=== PATIENT | female | born 1960 | race Caucasian/White ===

== ENCOUNTER 2019-02-13 08:50 | Emergency (ER) | payer MEDICARE, OTHER ==
[~2019-02-13] VITALS: Ht 175.3 cm; Wt 83.5 kg
[~2019-02-13 08:50] MED LIST: ACYCLOVIR400 MG PO; AZITHROMYCIN500 MG PO; BUSPIRONE HCL15 MG PO; CARBAMAZEPINE200 M2 PO; CARBAMAZEPINE200 MG PO; CETIRIZINE HCL10 MG PO; CIPROFLOXACIN500 MG PO; CLONAZEPAM0.5 MG PO; CLONAZEPAM1 MG; CLONAZEPAM1 MG PO; COMBIVENT RESPIM4 GM INH; GABAPENTIN300 MG PO; GEODON80 MG PO; HYDROCODON-ACE1 EA10 PO; HYDROCODON-ACE1 EA11 PO; IBUPROFEN800 MG PO; LAMICTAL150 MG PO; LEVOCETIRIZINE D5 MG PO; NEXIUM40 MG PO; NORCO 5-325 TA1 EACH PO; OXYCODONE IR PO; PERCOCET 10-321 EACH PO; PROAIR HFA8.5 GM INH; RISPERDAL1 MG/1 ML PO; SIMVASTATIN40 MG PO; TRAMADOL HCL50 MG PO; TRAZODONE HCL100 MG PO; VIIBRYD40 MG PO; ZOFRAN ODT4 MG PO
--- OUTSIDE RECORDS SUMMARY | 2019-02-13 08:54 | XMS ---
PreManage Notification: LYRIC SANTOS Security Spanish Instructor Events No recent Security Events currently on file CRITERIA MET - MAXP CARE PROVIDERS Mitzy Deal Liquid Floor And Wall Applier/Television Writer 08/31/2018-Current PHONE: [phone] Mitzy Deal Primary Care 08/31/2018-Current PHONE: [phone] Marbella Childress Primary Care Current PHONE: Unknown orarvind Case or Senior Research Project Manager Current PHONE: Unknown Gia has no Care Guidelines for this patient. Miguel Angel VISIT COUNT (12 MO.) 1 VENKATA Alejandre TOTAL 1 NOTE: Visits indicate total known visits. ED/UCC VISIT TRACKING (12 MO.) 02/13/2019 08:51 [place] [place] TYPE: Emergency COMPLAINT: - BACK PAIN/NO INJURY INPATIENT VISIT TRACKING (12 MO.) No inpatient visits to display in this time frame [id number]
[2019-02-13] MEDS ORDERED: LATUDA120 MG PO (09:03)
[2019-02-13] MEDS ORDERED: MILLIPRED5 MG PO (10:07)
== END 2019-02-13 10:20 | disposition home or self-care (01) ==
LOC: ED 08:50
DX: M54.5 Low back pain (principal); F41.9 Anxiety disorder, unspecified; F31.9 Bipolar disorder, unspecified; Z95.0 Presence of cardiac pacemaker; Z88.0 Allergy status to penicillin; Z88.2 Allergy status to sulfonamides; Z88.8 Allergy status to other drugs, medicaments and biological substances; Z91.018 Allergy to other foods; Z91.040 Latex allergy status; Z79.899 Other long term (current) drug therapy
CPT/HCPCS: 96372; 99283-25; J1630; J1885; J2930

== ENCOUNTER 2019-07-27 10:16 | Observation (INO) | payer MEDICARE, OTHER ==
[~2019-07-27] VITALS: Ht 175.3 cm; Wt 81.6 kg
--- OUTSIDE RECORDS SUMMARY | ~2019-07-27 | XMS | Encounter Summary ---
Demographics + + + | Address | [address] | | | [place] [address] | + + + | Home Phone | | + + + | Preferred Language | Unknown | + + + | Marital Status | | + + + | Anabaptist Affiliation | Unknown | + + + | Race | Unknown | + + + | Ethnic Group | Unknown | + + + Author + + + | Author | [facility] | | | and [place] | + + + | Organization | [facility] | | | and [place] | + + + | Address | Unknown | + + + | Phone | Unavailable | + + + Support + + +---------+ + | Name | Relationship | Address | Phone | + + +---------+ + | Mando Najeras | ECON | Unknown | | + + +---------+ + | Rob Kruse | ECON | Unknown | | + + +---------+ + Care Team Providers + +------+ + | Care Rubber Roller Grinder Name | Role | Phone | + +------+ + PCP | Unavailable | + +------+ + Encounter Details +--------+ + + + + | Date | Type | Department | Care Team | Description | +--------+ + + + + | 05/09/ | Hospital | [facility] | Conversion | Pain | | 2014 | Encounter | [address] | Transaction, | | | | | [address] | Provider Unknown | | | | | [place], [place] | [phone] | | | | | [address] | | | | | | [phone] | | | +--------+ + + + + Social History + +-------+ +--------+------+ | Tobacco Use | Types | Packs/Day | Years | Date | | | | | Used | | + +-------+ +--------+------+ | Never Assessed | | | | | + +-------+ +--------+------+ + + + | Sex Assigned at | Date Recorded | | | | + + + | Not on file | | + + + + + + + | Job Start Date | Occupation | Industry | + + + + | Not on file | Not on file | Not on file | + + + + + + + + | Travel History | Travel Start | Travel End | + + + + + + | No recent travel history available. | + + documented as of this encounter Plan of Treatment +--------+---------+ + + + | Date | Type | Specialty | Care Team | Description | +--------+---------+ + + + | 01/03/ | Office | Cardiology | Tiago Pleitez, | | | 2019 | Visit | | MD Shaji FORRESTER | | | | | | [place] | | | | | | [address] | | | | | | | | +--------+---------+ + + + documented as of this encounter Procedures + +--------+ + + + | Procedure Name | Priori | Date/Time | Associated Diagnosis | Comments | | | ty | | | | + +--------+ + + + | CT LUMBAR SPINE WO | Routin | 03/08/2014 | | Results for this | | CONTRAST | e | 11:57 PM | | procedure are in the | | | | PDT | | results section. | + +--------+ + + + documented in this encounter Results CT Lumbar Spine wo Contrast (03/08/2014 11:57 PM PDT) + + | Specimen | + + | | + + + + + | Narrative | Performed At | + + + | This is a non-reportable procedure without a radiologist report and | | | is used for image storage only | | + + + + + | Procedure Note | + + | Alen Ramesh Fermín - 04/15/2019 4:54 PM PDT This is a non-reportable procedure | | without a radiologist report and isused for image storage only | + + documented in this encounter Visit Diagnoses + + | Diagnosis | + + | Pain Generalized pain | + + documented in this encounter"
--- OUTSIDE RECORDS SUMMARY | ~2019-07-27 | XMS | Encounter Summary ---
Demographics + + + | Address | [address] | | | [place] [address] | + + + | Home Phone | | + + + | Preferred Language | Unknown | + + + | Marital Status | | + + + | Synagogue Affiliation | Unknown | + + + | Race | Unknown | + + + | Ethnic Group | Unknown | + + + Author + + + | Author | [facility] | | | and [place] | + + + | Organization | [facility] | | | and [place] | + + + | Address | Unknown | + + + | Phone | Unavailable | + + + Support + + +---------+ + | Name | Relationship | Address | Phone | + + +---------+ + | Mando Kruse | ECON | Unknown | | + + +---------+ + | Rob Kruse | ECON | Unknown | | + + +---------+ + Care Team Providers + +------+ + | Care Yacht Builder Name | Role | Phone | + +------+ + | Jose Woods DO | PCP | | + +------+ + Reason for Visit + + + | Reason | Comments | + + + | Device Check | Henley pacemaker in office device check | | (In-office) | | + + + Encounter Details +--------+ + + + + | Date | Type | Department | Care Team | Description | +--------+ + + + + | 06/14/ | Procedure | [facility] | Tiago Pleitez, | Cardiac pacemaker in | | 2019 | visit | CARDIOLOGY [place] | MD Shaji FORRESTER | situ (Primary Dx) | | | | [address] | [place], [place] | | | | | [facility] | [address] | | | | | [place] | | | | | | [address] | | | | | | [phone] | | | +--------+ + + + + Social History + +-------+ +--------+------+ | Tobacco Use | Types | Packs/Day | Years | Date | | | | | Used | | + +-------+ +--------+------+ | Former Smoker | | | | | + +-------+ [...] [place] | | | | | | [facility] | | | | | | [address] | | | | | | | | +--------+---------+ + + + documented as of this encounter Procedures + +--------+ + + + | Procedure Name | Priori | Date/Time | Associated Diagnosis | Comments | | | ty | | | | + +--------+ + + + | DEVICE INTERROGATION | Routin | 06/14/2019 | Cardiac pacemaker | Results for this | | | e | 1:15 PM | in situ | procedure are in the | | | | PDT | | results section. | + +--------+ + + + documented in this encounter Results Device Interrogation (06/14/2019 1:15 PM PDT) + + + | Narrative | Performed At | + + + | [facility] | [facility] | | [place] 06/21/2019 13:32PACEMAKER INTERROGATION REPORT Name: | | | Harriet Lyon PCP: Jose Woods DO : 1960MRN: [id number] | | | Primary cardiology provider: Tiago [place] Primary | | | electrophysiology provider: None Mode of interrogation: Seen in | | | cardiac device clinic Device: [employer]ent [employer] Battery Longevity: 4 | | | years RA Pacin% RV Pacin% Pacemaker dependent: No | | | Interrogation resultsPlease see the full interrogation report attached | | | Lead function: Lead impedance and threshold value trends have | | | been reviewed and are acceptable based on most recent evaluation. RA | | | Threshold: 0.5V @ 0.4ms RV Threshold: 0.6V @ 0.4ms RA Amplitude: 3.0 | | | mVRV Amplitude: 12.0mV Atrial events: Atrial high rate episodes: 6 | | | MEDICAL PHYSICS RESEARCHER. Total time 1.1 min Confirmed episodes of atrial flutter or atrial | | | fibrillation: No EGMs are available Percentage of time in atrial | | | flutter or atrial fibrillation: 0% Known history of atrial flutter or | | | atrial fibrillation: NoCurrent antithrombotic therapy including: N/A | | | Ventricular events: Ventricular high rate episodes: None. | | | Additional comments: None. CHF: Congestive heart failure parameters | | | and trends have been reviewed and n/a Programming changes: Temporary | | | programming changes were made for testing and restored to original | | | values. No permanent changes were made. Follow up: The next | | | scheduled interrogation will be in 6 months in the cardiac device | | | clinic. Impression:1. Normal pacemaker function.2. No significant | | | arrhythmias noted. Testing performed by: Adrian Retana | | |Lead function: Lead impedance and threshold value trends have | | |been reviewed and are acceptable based on most recent evaluation. | | | | | |RA Threshold: 0.5V @ 0.4ms | | |RV Threshold: 0.6V @ 0.4ms | | | | | |RA Amplitude: 3.0 mV | | |RV Amplitude: 12.0mV | | | | | | | | |Atrial events: Atrial high rate episodes: 6 MEDICAL PHYSICS RESEARCHER. Total time 1.1 | | |min | | | | | |Confirmed episodes of atrial flutter or atrial fibrillation: No | | |EGMs are available | | | | | |Percentage of time in atrial flutter or atrial fibrillation: 0% | | | | | |Known history of atrial flutter or atrial fibrillation: No | | |Current antithrombotic therapy including: N/A | | | | | |Ventricular events: Ventricular high rate episodes: None. | | | | | |Additional comments: None. | | | | | |CHF: Congestive heart failure parameters and trends have been | | |reviewed and n/a | | | | | |Programming changes: Temporary programming changes were made for | | |testing and restored to original values. No permanent changes | | |were made. | | | | | |Follow up: The next scheduled interrogation will be in 6 months | | |in the cardiac device clinic. | | | | | |Impression: | | |1. Normal pacemaker function. | | |2. No significant arrhythmias noted. | | | | | |Testing performed by: Adrian Retana | | | | | | | | + + + + +---------+ + + | Performing | Address | City/State[facility] | Phone Number | | Organization | | | | + +---------+ + + | [facility] | | | | + +---------+ + + documented in this encounter Visit Diagnoses + + | Diagnosis | + + | Cardiac pacemaker in situ - Primary | + + documented in this encounter"
--- OUTSIDE RECORDS SUMMARY | ~2019-07-27 | XMS | Encounter Summary ---
Demographics + + + | Address | [address] | | | [place] [address] | + + + | Home Phone | | + + + | Preferred Language | Unknown | + + + | Marital Status | Single | + + + | Pentecostal Affiliation | NOD | + + + | Race | White | + + + | Ethnic Group | Not or | + + + Author + + + | Author | [facility] | + + + | Organization | [facility] | + + + | Address | Unknown | + + + | Phone | Unavailable | + + + Support + + +---------+ + | Name | Relationship | Address | Phone | + + +---------+ + | Mando Kruse | ECON | Unknown | | + + +---------+ + | Christopher Aixa | ECON | Unknown | | + + +---------+ + Care Team Providers + +------+ + | Care Catalyst Concentration Operator Name | Role | Phone | + +------+ + | Jose Woods DO | PCP | | + +------+ + Encounter Details +--------+--------+ + + + | Date | Type | Department | Care Team | Description | +--------+--------+ + + + | 03/08/ | Intake | Transfer Center | | N/A | | 2019 | | [address] | | | | | | [place], | | | | | | [place] [address] | | | +--------+--------+ + + + Social History + +-------+ +--------+------+ | Tobacco Use | Types | Packs/Day | Years | Date | | | | | Used | | + +-------+ +--------+------+ | Former Smoker | | | | | + +-------+ +--------+------+ + +---+---+---+ | Smokeless Tobacco: | | | | | Never Used | | | | + +---+---+---+ + + +---------+ + | Alcohol Use | Drinks/Week | oz/Week | Comments | + + +---------+ + | Not Currently | | | | + + +---------+ + + + + | Sex Assigned at [...] as of this encounter Plan of Treatment Not on filedocumented as of this encounter Visit Diagnoses Not on filedocumented in this encounter"
--- OUTSIDE RECORDS SUMMARY | ~2019-07-27 | XMS | Clinical Summary ---
Demographics + + + | Address | [address] | | | [place] [address] | + + + | Home Phone | | + + + | Preferred Language | Unknown | + + + | Marital Status | | + + + | Rastafari Affiliation | Unknown | + + + | Race | Unknown | + + + | Ethnic Group | Unknown | + + + Author + + + | Author | [facility] | | | and [place] | + + + | Organization | [facility] | | | and [...] Team Providers + +------+ + | Care Bag Bleacher Name | Role | Phone | + +------+ + | Jose Woods DO | PCP | | + +------+ + Allergies + + + + + + | Active Allergy | Reactions | Severity | Noted | Comments | | | | | Date | | + + + + + + | Apricot | Swelling | Medium | / | Swelling | | | | | 16 | | + + + + + + | Nzd-Vqbk-Dyqz | Other (See Comments) | Medium | / | Extreme depression | | Buffered | | | 12 | | + + + + + + | Penicillins | Hives | High | 12/31/19 | | | | | | 18 | | + + + + + + | Prunus | Swelling | Medium | 04/29/20 | Swelling | | | | | 11 | | + + + + + + | Sulfa Antibiotics | Hives | High | 12/31/19 | | | | | | 18 | | + + + + + + Medications + + + +---------+------+------+-------+ | Medication | Sig | Dispensed | Refills | Star | End | Statu | | | | | | t | Date | s | | | | | | Date | | | + + + +---------+------+------+-------+ | simvastatin | Take 40 mg by mouth | | 0 | 05/0 | | Activ | | (ZOCOR) 40 mg tablet | nightly. | | | 10/20 | | e | | | | | | 18 | | | + + + +---------+------+------+-------+ | meloxicam (MOBIC) | Take 15 mg by mouth | | 0 | 05/0 | | Activ | | 15 mg tablet | daily. | | | 2/20 | | e | | | | | | 18 | | | + + + +---------+------+------+-------+ | lamoTRIgine | Take 2 tablets by | | 0 | 05/0 | | Activ | | (LAMICTAL XR) 200 MG | mouth nightly. | | | 2/20 | | e | | TB24 24 hr tablet | | | | 18 | | | + + + +---------+------+------+-------+ | acyclovir | Take 400 mg by mouth | | 0 | 05/0 | | Activ | | (ZOVIRAX) 400 MG | daily. | | | 2/20 | | e | | tablet | | | | 18 | | | + + + +---------+------+------+-------+ | fluticasone | 2 sprays by Each | | 0 | 05/0 | | Activ | | (FLONASE SENSIMIST) | Nare route daily. | | | 2/20 | | e | | 27.5 MCG/SPRAY nasal | | | | 18 | | | | spray | | | | | | | + + + +---------+------+------+-------+ | raNITIdine | Take 300 mg by mouth | | 0 | 05/0 | | Activ | | (ZANTAC) 150 mg | nightly. | | | 2/20 | | e | | tablet | | | | 18 | | | + + + +---------+------+------+-------+ | lurasidone | Take 120 mg by mouth | | 0 | 05/0 | | Activ | | (LATUDA) 120 mg | daily. T | | | 2/20 | | e | | tablet | | | | 18 | | | + + + +---------+------+------+-------+ Active Problems + + + | Problem | Noted Date | + + + | Bipolar affective | 12/30/2017 | + + + | Cardiac pacemaker in situ | 08/04/2014 | + + + + + | Overview: Overview: | | [employer] | + + + + + | Subclinical hypothyroidism | 11/13/2010 | + + + Encounters +--------+ + + + + | Date | Type | Specialty | Care Team | Description | +--------+ + + + + | 06/14/ | Procedure | Cardiology | Tiago Pleitez, | Cardiac pacemaker in | | 2019 | visit | | MD | situ (Primary Dx) | +--------+ + + + + from Last 3 Months Family History + + +------+ + | Medical History | Relation | Name | Comments | + + +------+ + | Cancer | Mother | | | + + +------+ + + +------+ + + | Relation | Name | Status | Comments | + +------+ + + | Father | | | | + +------+ + + | Mother | | | cancer | | | | (Age | | | | | 66) | | + +------+ + + | Mother | | | | + +------+ + + Social History + +-------+ +--------+------+ [...] recent travel history available. | + + Last Filed Vital Signs + + + + + | Vital Sign | Reading | Time Taken | Comments | + + + + + | Blood Pressure | 120/60 | 12/29/2018 10:14 AM | | | | | PDT | | + + + + + | Pulse | 64 | 12/29/2018 10:14 AM | | | | | PDT | | + + + + + | Temperature | - | - | | + + + + + | Respiratory Rate | - | - | | + + + + + | Oxygen Saturation | - | - | | + + + + + | Inhaled Oxygen | - | - | | | Concentration | | | | + + + + + | Weight | 86.2 kg (190 lb 1.6 | 12/29/2018 10:14 AM | | | | oz) | PDT | | + + + + + | Height | 175.3 cm (5' 9") | 12/29/2018 10:14 AM | | | | | PDT | | + + + + + | Body Mass Index | 28.07 | 12/29/2018 10:14 AM | | | | | PDT | | + + + + + Plan of Treatment +--------+---------+ + + + | Date | Type | Specialty | Care Team | Description | +--------+---------+ + + + | 01/03/ | Office | Cardiology | Tiago Pleitez, | | | 2020 | Visit | | MD Shaji FORRESTER | | | | | | [place], [place] | | | | | | [address] | | | | | | | | +--------+---------+ + + + + + + + + | Health Maintenance | Due Date | Last Done | Comments | + + + + + | Hepatitis C | | | | | Screening | 0 | | | + + + + + | Cervical Cancer | | | | | Screening (Pap) | 0 | | | + + + + + | Colorectal Cancer | | | | | Screening | 0 | | | | (Colonoscopy) | | | | + + + + + | Vaccine: Zoster (1 | | | | | of 2) | 0 | | | + + + + + | Breast Cancer | | | | | Screening | 5 | | | + + + + + | Adult Annual | | | | | Wellness Visit | 9 | | | + + + + + | Vaccine: | | 12/27/2013 | | | Dtap/Tdap/Td (2 - | 4 | | | | Td) | | | | + + + + + | Vaccine: Influenza | Completed | 06/13/2019, 09/20/2018, | | | | | 08/06/2017 | | + + + + + Procedures + +--------+ + + + | [...] section. | + +--------+ + + + from Last 3 Months Results Device Interrogation (06/14/2019 1:15 PM PDT) + + + | Narrative | Performed At | + + + | Ashley Eden, | [facility] | | RN 06/21/2019 13:32PACEMAKER INTERROGATION REPORT Name: | | | Harriet Job Camron PCP: Jose Woods DO : 1960MRN: [id number] | | | Primary cardiology provider: Tiago Pleitez Primary | | | electrophysiology provider: Lizzy Mode of interrogation: Seen in | | | cardiac device clinic Device: [employer] Battery Longevity: 4 | | | years [...] high rate episodes: 6 | | | RESEARCH ANIMAL FACILITY SUPERVISOR. Total time 1.1 min Confirmed episodes of [...] |Atrial events: Atrial high rate episodes: 6 RESEARCH ANIMAL FACILITY SUPERVISOR. Total time 1.1 | | |min | [...] + + | Performing | Address | City/State/Zipcode | Phone Number | | Organization | | | | + +---------+ + + | [facility] | | | | + +---------+ + + from Last 3 Months Insurance + +--------+ +--------+ +---------+--------+ | Payer | Benefi | Subscriber | Effect | Phone | Address | Type | | | t Plan | ID | fabienne | | | | | | / | | Dates | | | | | | Group | | | | | | + +--------+ +--------+ +---------+--------+ | MEDICARE | MEDICA | [id number] | 12/30/19 | [phone] | | Medica | | | RE | | 04-Pre | 5 | | re | | | PART A | | sent | | | | | | AND B | | | | | | + +--------+ +--------+ +---------+--------+ | [employer] | MODA | [id number] | | [phone] | | Medica | | MEDICAID HMO | HEALTH | | [phone]-[id number] | 1 | | id | | | MDCD | | esent | | | | | | HMO [place] | | | | | | + +--------+ +--------+ +---------+--------+ + +--------+ +--------+ + + | Guarantor Name | Accoun | Relation to | Date | Phone | Billing Address | | | t Type | Patient | of | | | | | | | | | | + +--------+ +--------+ + + | Harriet Lyon | Person | Self [birth year] [address] | | | al/Fam | | 1961 | [phone] | [place] | | | [place] | | | 0 (Home) | [address] | + +--------+ +--------+ + + Advance Directives + + + + + | Type | Date Recorded | Patient | Explanation | | | | System Auditor | | + + + + + | Power of | | | | | Personal Lines Advisor | | | | + + + + + | Advance | | | | | Directive | | | | + + + + +
--- OUTSIDE RECORDS SUMMARY | ~2019-07-27 | XMS | Encounter Summary ---
Demographics + + + | Address | [address] | | [place] [address] | + + + | Home Phone | | + + + | Preferred Language | Unknown | + + + | Marital Status | Single | + + + | Restorationist Affiliation | NOD | + + + | Race | White | + + + | Ethnic Group | Not or | + + + Author + + + | Author | [facility] | + + + | Organization | [facility] | + + + | Address | Unknown | + + + | Phone | Unavailable | + + + Support + + +---------+ + | Name | Relationship | Address | Phone | + + +---------+ + | Mando Kruse | ECON | Unknown | | + + +---------+ + | Christopher Medfield | ECON | Unknown | | + + +---------+ + Care Team Providers + +------+ + | Care Control Panel Tester Name | Role | Phone | + +------+ + | Jose Woods DO | PCP | | + +------+ + Reason for Visit AUTH/CERT +--------+--------+ + + + + | Status | Reason | Specialty | Diagnoses / | Referred By | Referred To | | | | | Procedures | Contact | Contact | +--------+--------+ + + + + | | | | | | | +--------+--------+ + + + + Encounter Details +--------+ + + + + | Date | Type | Department | Care Team | Description | +--------+ + + + + | 03/08/ | Hospital | [facility] [address] | Naomi Philippe MD | | | 2019 - | Encounter | [address] | [address] | | | | | [place], [place] | [address], | | | 03/11/ | | [address] | [place] [address] | | | 2018 | | [phone] | [phone] | | | | | | | | | | | | Erick Garg MD | | | | | | [address] | | | | | | [place], | | | | | | [place] [address] | | | | | | [phone] | | | | | | | | | | | | Chivo Tucker MD | | | | | | [address] | | | | | | [place], | | | | | | [place] [address] | | | | | | [phone] | | | | | | | | | | | | Flako, | | | | | | MD Padmini [address] | | | | | | [address] | | | | | | [place], [place] | | | | | | [address] | | | | | | [phone] | | | | | | | | +--------+ + + + [...] + + documented as of this encounter Last Filed Vital Signs + + + + + | Vital Sign | Reading | Time Taken | Comments | + + + + + | Blood Pressure | 133/78 | 03/11/2019 4:25 PM | | | | | PDT | | + + + + + | Pulse | 59 | 03/11/2019 4:25 PM | | | | | PDT | | + + + + + | Temperature | 36.7 C (98.1 F) | 03/11/2019 4:25 PM | | | | | PDT | | + + + + + | Respiratory Rate | 16 | 03/11/2019 4:25 PM | | | | | PDT | | + + + + + | Oxygen Saturation | 99% | 03/11/2019 4:25 PM | | | | | PDT | | + + + + + | Inhaled Oxygen | - | - | | | Concentration | | | | + + + + + | Weight | 84.7 kg (186 lb 11.2 | 03/11/2019 5:46 AM | | | | oz) | PDT | | + + + + + | Height | 175.3 cm (5' 9") | 03/10/2019 3:26 PM | | | | | PDT | | + + + + + | Body Mass Index | 27.57 | 03/10/2019 3:26 PM | | | | | PDT | | + + + + + documented in this encounter Functional Status + + + + | Functional Status | Response | Date of Assessment | + + + + | Because of a physical, mental, or emotional | Yes | 03/10/2019 | | condition, do you have serious difficulty | | | | doing errands alone such as visiting the | | | | doctor? | | | + + + + + + + + | Cognitive Status | Response | Date of Assessment | + + + + | Because of a physical, mental, or emotional | No | 03/10/2019 | | condition, do you have serious difficulty | | | | concentrating, remembering, or making | | | | decisions? (5 years old or older) | | | + + + + documented as of this encounter Discharge Summaries Padmini Arriola MD - 03/10/2019 7:38 PM PDTFormatting of this note might be differen t from the original. Clinical Hospitalist Discharge Summary PCP: Jose Woods DO Author: Chivo Tucker MD Discharging Physician: Chivo Tucker MD Admission Date: 03/08/2019 Discharge Date: 03/11/2019 Procedures: CT myelogram 03/09/2019 Primary Diagnosis: Low back pain Urinary incontinence Post LP headache Constipation Sick sinus syndrome Bipolar Anxiety Insomnia GERD HSV Reason For Admission: Harriet Lyon is a 58 y.o. Femalew/ pmh of chronic back and bilateral leg pain s/p l umbar decompression laminectomy [id number] ago and spinal cord stimulator placed 5, bipolar/schizoaffective disorder, anxiety, GERD, LHD, OA. She presents as transfer from [facility] 03/08[facility]19 withacutely worsening lower back pain and lower extremity weakness with reported bladder incontinence,and need for CT myelogram. See admission note for full details of the initial history, exam, and data. Hospital Course: #. Lumbar laminectomy syndrome #. Chronic lower back pain and radiculopathy #. Acute onset severe LBP w/ incontinence: Patient presents as transfer from [facility] 03[facility] with acute onset of severe LBP in the setting of years of chronic LBP after lumbar laminectomy about 11 years ago. Patient awoke from deep eep with severe 10/10 lumbar pain radiating around her flanks and down her legs. She also re ports bladder incontinence when standing since the onset of the pain. Her neuro exam shows l argely 5/5 strength, somewhat limited by pain, intact DTRs. The CT lumbar spine from [facility] did not show any new compression fracture or other abnormality. Patient may have a muscular str ain, herniated disc, or lumbar stenosis. CT myelogram with moderate/severe foraminal narrow ing, discussed with neurosurgery regarding possible interventions who recommended no acute i ntervention. They recommend follow up with pts outpatient neurosurgeon. She was also seen by Pain Rehab who recommended the following: -Therapeutic neuroscience education: pain, stress, relaxation, breathing, desensitization ( provided) -Hooklying cranio-cervical flexion -sidelying self massage to buttock and low back for desensitization -Squeezing and stretching the legs- do it once per hour- feet, calves, knees, buttocks -Suggested walking as tolerated x 3-4 per day. #. VELAZQUEZ Patient post LP headache she was given a liter of IV fluids, offered a blood patch and decl ined, headache improved somewhat with caffeine. She was re-offered a blood patch the followi day but given that it may increase her back pain she elected to not proceed at this time. Discharging with scheduled tylenol, caffeine prn. #. Urinary incontinence: Reportedly began having urinary incontinence characterized as dribbling every time she stoo d up since 3am 03/08 when severe LBP started. She has not had this issue before. Currently sy mptoms improved as she is able to control her urination but has difficulty stopping her stre am. Negative for UTI. No urinary retention (PVRs x 3 normal). Suspect related to significant constipation given no new neurologic issues. #. Constipation: Patient with severe constipation thought to be opioid induced, encouraged aggressive bowel regimen here and at home. Given 2 fleets with a small amount of success. Has been taking mi ralax with little effect. Wanted to go home today but provided go lytelye for pt to try once she gets home -minimize opioids -new prescription for senna -go lytely x 1 #. Hx of sick sinus syndrome s/p PPM: From Care everywhere appears that patient presented to [facility] in 2010 with symptomatic bradyca rdia in 30s w/ syncopal episodes. Underwent pacemaker placement. Has not had issues since . Discharge physical exam Vital Signs at discharge: BP: 151/87 (03/10/19 1410) Pulse: 59 (03/10/19 1410) Resp: 16 ( 0823) Weight: 84.7 kg (186 lb 11.7 oz) (03/08/19 2333) Body mass index is 27.58 kg/m. General: Comfortable in bed. Pleasant, walking around room. Head and Eyes: Head atraumatic. EOMI Neck: Supple. Cardiovascular: Regular rate and rhythm no murmurs rubs or gallops Pulmonary: clear bilaterally, no wheezes, rhonchi, rales Abdominal: Soft, nontender, nondistended, normoactive bowel sounds Extremities: no peripheral edema Neuro: 5 out of 5 bilateral upper extremity strength, except LUE abduction 4+/5 due to pain , 5/5 bilateral lower extremity strength decreased sensation in the left leg compared to R l eg, hyperreflexic patellar reflexes Discharge weight: Wt Readings from Last 1 Encounters: 03/08/19 84.7 kg (186 lb 11.7 oz) Pertinent Findings: Imaging: CT myelogram 03/10/2019: L1-2: Unremarkable. L2-3: Mild disc bulge with no significant canal stenosis. L3-4: Mild disc bulge with minimal canal stenosis. L4-5: Moderate disc bulge with mild canal stenosis and left lateral recess effacement. Ther e is also mild bilateral foraminal narrowing. L5-S1: Disc bulge and left paracentral soft tissue, likely disc protrusion, with effacement of the left lateral recess. Disc osteophyte complex bilaterally produces moderate to severe foraminal narrowing. Consultants: Adult pain service Neurosurgery Code Status: Full POLST completed: no Medication List START taking these medications oxyCODONE (immediate release) 5 mg Tab Commonly known as: ROXICODONE Take 2 tablets by mouth every six hours as needed for severe pain. polyethylene glycol 17 gram/dose Powd Commonly known as: MIRALAX Mix 17 g (1 capful) in liquid and drink once daily. senna-docusate 8.6-50 mg Tab Commonly known as: SENOKOT S Take 2 tablets by mouth two times daily. Indications: constipation CONTINUE taking these medications acyclovir 400 mg Tab Commonly known as: ZOVIRAX Take 400 mg by mouth two times daily. fluticasone propionate 50 mcg/actuation Spsn Commonly known as: FLONASE Instill 2 sprays into each nostril once daily in the evening. lamoTRIgine 200 mg Tr24 Commonly known as: LAMICTAL XR Take 200 mg by mouth once daily in the evening. lurasidone 120 mg Tab Commonly known as: LATUDA Take 120 mg by mouth once daily in the evening. multivitamin-minerals Tab Take 1 tablet by mouth once daily in the evening. ranitidine 150 mg Tab Commonly known as: ZANTAC Take 300 mg by mouth once daily at bedtime. simvastatin 40 mg Tab Commonly known as: ZOCOR Take 40 mg by mouth once daily in the evening. traZODone 100 mg Tab Commonly known as: DESYREL Take 200 mg by mouth once daily at bedtime. Rationale for Medication Changes: New meds for constipation Allergies: Allergies Allergen Reactions Apricot Pruritus "it will kill me" Gabapentin Pruritus and Facial Swelling Latex Pruritus Penicillin Hives and Angina Sulfa (Sulfonamide Antibiotics) Hives DC Location: Home Appointments: I spent more than 39 minutes [id number] with the patient of which 70% was spent counselin g the patient about constipation, headache and coordinating care with nursing, pain rehab, n eurosurg and case management. documented in th is encounter Discharge Instructions Discharge Instr - AVS First Page Chivo Tucker MD - 03/10/2019 7:23 PM PDTWho to Call: Linh SOUZA TO REACH YOUR MEDICAL TEAM WITH QUESTIONS, CONCERNS, OR NEW SYMPTOMS: Thank you for entru sting your care to [facility] Internal Medicine. If you have any problems or concerns before you a re able to follow up with your Primary Care Provider, please call and ask the carbonation equipment operator to page the attending physician who was caring for you at discharge. If that physi nabila is not available, ask the carbonation equipment operator to page the physician on-call for the Clinical Hospi talist Service. Discharge Instr - Activity Chivo Tucker MD - 03/10/2019 7:21 PM PDTActivity Instruction s: No activity restrictions Discharge Instr - Diet Chivo Tucker MD - 03/10/2019 7:21 PM PDTDiet Type: Regular diet- There are no restrictions to your diet. You may eat or drink whatever you prefer, though h ealthy food choices are recommended. Discharge Instr - Diagnoses Chivo Tucker MD - 03/10/2019 7:20 PM PDTLower back pain Weakness Discharge Instr - Procedures Chivo Tucker MD - 03/10/2019 7:20 PM PDTCT myelogramElectr onically signed by Chivo Tucker MD at 03/10/2019 7:20 PM PDT Discharge Instr - Hospital Course Padmini Arriola MD - 03/10/2019 7:21 PM PDTYou wer e admitted to the hospital for severe back pain and difficulty with urination. We have perf ormed a CT myelogram which showed that you have narrowing throughout your spine, however are neurosurgeons have reviewed the images and her history and feel as though there is no new i ndication for surgery at this time. The recommend that you follow up with your neurosurgeon Dr. Taylor. You should continue to work with physical therapy and if your insurance does not cover it anymore you should try to continue the exercises that they teach you at home. Regarding your urinary frequency, you do not have a bladder infection and we do not think t his is from your spine/nerves. It may be related to your severe constipation. We are recomme nding you take senna daily and drink plenty of water. Discharge Instr - Electronic Signature Chivo Tucker MD - 03/10/2019 7:23 PM PDTAfter Vi sit Summary Signature Electronically signed by: CHIVO TUCKER MD, 03/10/2019 at 7:23 PM Additional Instructions Chivo Tucker MD - 03/10/2019 7:23 PM PDTOpioid Pain Management Opioid pain medication has been started during this hospitalization. Anticipated duration of opioid treatment: 1 week Who will provide refills: No refills - please follow-up with clinic Sawyer Dominguez RN - 03/11/2019Nursing Discharge Note Discharge Date: 03/11/2019 Additional Discharge Information: Discharge Nurse: SAWYER DOMINGUEZ RN documented in this encounter Medications at Time of Discharge + + + +---------+ + + | Medication | Sig | Dispensed | Refills | Start | End Date | | | | | | Date | | + + + +---------+ + + | acyclovir 400 mg | Take 400 mg by mouth | | 0 | | | | oral tablet | two times daily. | | | | | + + + +---------+ + + | fluticasone | Instill 2 sprays | | 0 | | | | propionate 50 | into each nostril | | | | | | mcg/actuation nasal | once daily in the | | | | | | spray,suspension | evening. | | | | | + + + +---------+ + + | lamoTRIgine 200 mg | Take 200 mg by mouth | | 0 | | | | oral tablet | once daily in the | | | | | | extended release | evening. | | | | | | 24hr | | | | | | + + + +---------+ + + | lurasidone 120 mg | Take 120 mg by mouth | | 0 | | | | oral tablet | once daily in the | | | | | | | evening. | | | | | + + + +---------+ + + | | Take 1 tablet by | | 0 | | | | multivitamin-mineral | mouth once daily in | | | | | | s oral tablet | the evening. | | | | | + + + +---------+ + + | oxyCODONE | Take 2 tablets by | 15 | 0 | 03/11/20 | | | (immediate release) | mouth every six | tablet | | 19 | | | 5 mg oral tablet | hours as needed for | | | | | | | severe pain. | | | | | + + + +---------+ + + | polyethylene | Mix 17 g (1 capful) | 119 g | 1 | 03/11/20 | | | glycol 17 gram/dose | in liquid and drink | | | 19 | | | oral powder | once daily. | | | | | + + + +---------+ + + | ranitidine 150 mg | Take 300 mg by mouth | | 0 | | | | oral tablet | once daily at | | | | | | | bedtime. | | | | | + + + +---------+ + + | senna-docusate | Take 2 tablets by | 120 | 1 | 03/11/20 | | | 8.6-50 mg oral | mouth two times | tablet | | 19 | | | tabletIndications: | daily. Indications: | | | | | | constipation | constipation | | | | | + + + +---------+ + + | simvastatin 40 mg | Take 40 mg by mouth | | 0 | | | | oral tablet | once daily in the | | | | | | | evening. | | | | | + + + +---------+ + + | traZODone 100 mg | Take 200 mg by mouth | | 0 | | | | oral tablet | once daily at | | | | | | | bedtime. | | | | | + + + +---------+ + + documented as of this encounter Progress Oh Luther PA-C - 03/11/2019 10:54 AM PDTNeurosurgery Non-visit Note Hospital Day:3 Author; Oh Mei PA-C Attending Physician: Padmini Arriola MD Impression/Plan: Harriet Lyon is a 58 y.o. female with sick sinus syndrome s/p pacema ker, cervical and thoracic spine surgeries s/p T8-9 SCS, and 1month of L>R subacute back bruce n radiating to the legs in L5 distribution, with worsening in last 3 days. Evidence of Left foraminal stenosis on CT myelogram. However, these are chronic findings and as the patient e xhibits no weakness or foot drop on exam, acute surgical intervention is not indicated at th is time. - We recommend the patient follow up as an outpatient with her previous neurosurgeon, Dr. Clare CASTILLO to sign off at this time. - plan discussed with and agreed upon with Dr. Sylvester Delong Dispo: Secondary to clinical course Oh Mei PA-C [facility] [address] [place] [address] Haris Duffy MD - 03/11/2019 10:28 AM PDT INPATIENT ADULT PAIN SERVICE FOLLOW UP NOTE Date of Service: 03/11/2019 Author: Rob An MD Pain Service Attending Physician: Catherine Dominguez MD Main Complaint: acute pain, chronic pain and headache for consideration of blood patch Interval History: Harriet Lyon is a 58 y.o. female with a history of spine procedure s admitted for acute low back pain and new postural headache following a CT myelogram. Interval events since last Adult Pain Service visit: Patient initially refused blood patch when last seen yesterday because of concerns for pain. She was treated conservatively with IV fluids, caffeine and abdominal binder. It helped initially but this morning she was only able to ambulate a short distance before needing to lay back down in bed from "excruciating headache." She now requested that her team call us for a blood patch. Of note, she has had a n epidural blood patch once before after a previous CT myelogram years ago. Ms. Lyon complains of constant and throbbing bilateral head pain, without radiation.. Sin ce her last evaluation, Ms. Lyon reports that her pain has not changed. Her pain score at r est is 0/10. With activity, her pain score is excruciating/10. Specific activities that ex acerbate Ms. Lyon's pain include sitting, standing upright. Her pain is improved by lying d own. Ms. Lyon is partially satisfied with current pain management efforts. No double vision. We recapped her other pain today. For the past month, she has had severe low back pain wrap ping around her bilateral hips. There is also midline tenderness in her lumbar spine. She velazquez s shooting pains radiating from her low back down the lateral aspect of bilateral lower extr emities to the knees, L>R, worse than ever before over the past month. She reports numbne ss tingling in bilateral feet. Associated symptoms include: none Pertinent review of Systems: General: Patient complains of negative. Other complaints: Back pain, leg pain and feeling of leg weakness Past Medical History: History of chronic or preoperative pain: yes: location: central and bilateral low back, th oracic spine and lower extremity. Prior to hospitalization: No significant chronic use of opioids at home. None Current Medications: Current Facility-Administered Medications Medication Dose Route Frequency Last Rate acetaminophen (TYLENOL) tablet 1,000 mg 1,000 mg oral TID acyclovir (ZOVIRAX) tablet 400 mg 400 mg oral BID famotidine (PEPCID) tablet 20 mg 20 mg oral BID fluticasone propionate (FLONASE) 50 mcg/actuation nasal spray 2 spray 2 spray both nos trils DAILY heparin injection 5,000 Units 5,000 Units subcutaneous Q12H (Scheduled) lamoTRIgine (LAMICTAL XR) ER tablet tr24 200 mg 1 tablet oral QPM lidocaine (LIDODERM) 5 % patch 1 patch 1 patch transdermal Q24H lurasidone (LATUDA) tablet 120 mg 120 mg oral QPM polyethylene glycol (MIRALAX) packet 17 g 17 g oral DAILY senna-docusate (SENOKOT S) 8.6-50 mg 2 tablet 2 tablet oral BID simvastatin (ZOCOR) tablet 40 mg 40 mg oral QPM sodium phosphates (FLEET) 19-7 gram/118 mL rectal enema 1 Bottle 1 Bottle rectal ONCE Current Facility-Administered Medications Medication Dose Route Frequency Last Rate bisacodyl (DULCOLAX) suppository 10 mg 10 mg rectal DAILY PRN caffeine (VIVARIN) tablet 100 mg 100 mg oral Q4H PRN HYDROmorphone (DILAUDID) injection 0.2-0.6 mg 0.2-0.6 mg intravenous Q3H PRN methocarbamol (ROBAXIN) tablet 500 mg 500 mg oral Q6H PRN naloxone (NARCAN) injection intravenous PRN ondansetron ODT (ZOFRAN ODT) tablet 8 mg 8 mg oral Q12H PRN oxyCODONE (immediate release) (ROXICODONE) tablet 5-10 mg 5-10 mg oral Q4H PRN polyethylene glycol (MIRALAX) packet 34 g 34 g oral TID PRN prochlorperazine (COMPAZINE) injection 5-10 mg 5-10 mg intravenous Q6H PRN prochlorperazine (COMPAZINE) tablet 5-10 mg 5-10 mg oral Q6H PRN traZODone (DESYREL) tablet 200 mg 200 mg oral HS PRN Current Facility-Administered Medications Medication Dose Route Frequency Last Rate The above medication list includes the following analgesics: Opioids: Oxycodone 10 mg every 4 hours as needed (30 mg in past 24 hours), hydromorphone IV for BTP (no doses in past 24 hours) Other analgesics: caffeine (300 mg in past 24 hours) Other psychoactive medications: Prochlorperazine (no dose), trazodone (no doses) Allergies: Allergies Allergen Reactions Apricot Pruritus "it will kill me" Gabapentin Pruritus and Facial Swelling Latex Pruritus Penicillin Hives and Angina Sulfa (Sulfonamide Antibiotics) Hives Physical Exam: BP 140/71 (BP Location: Left upper arm, Patient Position: Lying on back) | Pulse 60 | Tem p 36.6 C (97.9 F) (Oral) | Resp 16 | Ht 1.753 m (5' 9") | Wt 84.7 kg (186 lb 11.2 oz) | SpO2 100% | BMI 27.57 kg/m | BSA 2.03 m Systolic (24hrs), Av , Min:109 , Max:151 Diastolic (24hrs), Av, Min:61, Max:87 Pulse Min: 59 Max: 60 Temp Min: 36.6 C (97.9 F) Max: 36.8 C (98.2 F) Resp Min: 16 Max: 16 SpO2 Min: 96 % Max: 100 % General appearance: alert, mild distress, cooperative, crying, lying on her side, dark room . Extremities: warm, well-perfused. Back: Midline tenderness of low lumbar spine. Neurological: Motor: Flexion & Extension is bilaterally 5+ in: hip, knee, ankle and extens or hallicus longus Skin: Skin color, texture, turgor normal. No rashes or lesions noted in limited areas I ob served. Psych: Anxious, dysphoric. Impression: Harriet Lyon is a 58yo female with history of back pain s/p spinal cord stimulator, lumbar foraminal stenosis with bilateral radiculopathy, and a recent flare of symptoms in the past month including worsening of radiculopathy and unsteadiness on her feet. Since initial imagi ng did not show spinal canal stenosis, a CT myelogram was performed, following which she dev eloped symptoms consistent with a post dural puncture headache. We explained to the patient the likelihood that her radiculopathy and back pain will be exa cerbated by an epidural blood patch, which would be very uncomfortable for her and potential ly cloud neurological assessment. Additionally, her history of prior laminectomy in the area further complicates the likelihood of success. We recommend a strong attempt at conservative management. I explained to the patient that p ost dural puncture headaches are not an emergency, and most of the time they resolve spontan eously within 1 week. If her headache is refractory to conservative management, and after co nsideration of the options and risks she decides she still wants us to perform the procedure , we can see her in clinic as an outpatient. Diagnosis: 1. Post dural puncture headache Recommendations: 1. Continue conservative management with fluids, caffeine, abdominal binder, acetaminophen, ibuprofen, and rest. 2. Follow up in our clinic if needed for further consideration of an epidural blood patch. APS will sign off for now. Haris Silverio MD, MA Resident, Anesthesiology & Perioperative Medicine Pager [phone] Associated attestation - Catherine Dominguez MD - 03/11/2019 6:47 PM PDTI saw and evaluated Ms. Justin Lyon with Resident: Dr. Haris Silverio, who conducted the initial history and phys ical examination. I personally interviewed the patient and performed the pertinent parts o f the physical examination. I have reviewed the resident s note and I agree with the plan of care as documented. I do not have additional comments. Kolby Carbone, Chivo Franks MD - 03/10/2019 7:11 PM PDT [facility] Progress Note Hospital Day #2 24 Hour Events: -Patient with continued back pain, stable compared to yesterday. Patient is able to void a s needed, has not having any episodes of incontinence, however she is having difficulty stop ping her stream. -Patient with a new headache today, worse with sitting up and standing, relieved with layin g flat. She has had this headache before when she had no pain in the past. APS consulted f or blood patch. -Degenerative joint disease seen on CT myelogram, neurosurgery consulted for recommendation s regarding continued treatment. Physical Examination: Last 24 hour min/max Temp: 36.6 C (97.9 F) Temp Min: 36.4 C (97.5 F) Max: 36.8 C (98.2 F) Pulse: 59 Pulse Min: 59 Max: 61 Resp: 16 Resp Min: 16 Max: 16 BP: 151/87 BP Min: 127/69 Max: 151/87 SpO2: 99 % SpO2 Min: 93 % Max: 100 % Body mass index is 27.58 kg/m. Date 03/09/19 0700 - 03/10/19 0659 Shift [id number] [id number] [id number] 24 Hour Total INTAKE P.O. 100 100 I.V. 5 5 Shift Total 105 105 OUTPUT Urine(mL/kg/hr) 350 350 Shift Total(mL/kg) 350(4.1) 350(4.1) Weight (kg) 84.7 84.7 84.7 84.7 General: Comfortable in bed. Head and Eyes: Head atraumatic. EOMI Neck: Supple. Cardiovascular: Regular rate and rhythm no murmurs rubs or gallops Pulmonary: clear bilaterally, no wheezes, rhonchi, rales Abdominal: Soft, nontender, nondistended, normoactive bowel sounds Extremities: no peripheral edema Neuro: 5 out of 5 bilateral upper extremity strength, except LUE abduction 4+/5 due to pain , 5/5 bilateral lower extremity strength decreased sensation in the left leg compared to R l eg, hyperreflexic patellar reflexes Laboratory Interpretation: Sodium 141 Potassium 4 Creatinine 0.959 hemoglobin A1c 5.7 WBC 6.4 Hemoglobin 13 Imaging Interpretation: Abdominal x-ray 03/09/2019: Mild stool burden and gas seen throughout a normal appearing col on and rectum without evidence for obstruction. CT myelogram 03/10/2019: L1-2: Unremarkable. L2-3: Mild disc bulge with no significant canal stenosis. L3-4: Mild disc bulge with minimal canal stenosis. L4-5: Moderate disc bulge with mild canal stenosis and left lateral recess effacement. Ther e is also mild bilateral foraminal narrowing. L5-S1: Disc bulge and left paracentral soft tissue, likely disc protrusion, with effacement of the left lateral recess. Disc osteophyte complex bilaterally produces moderate to severe foraminal narrowing. Assessment and Plan Harriet Lyon is a 58 y.o. Female w/ pmh of chronic back and bilateral leg pain s/p mini mbar decompression laminectomy about 11 years ago and spinal cord stimulator placed 03/01/15, bipolar/schizoaffective disorder, anxiety, GERD, LHD, OA. She presents as transfer from OSH 03/08/19 with acutely worsening lower back pain and lower extremity weakness with reported jamar dder incontinence, and need for CT myelogram. #. Lumbar laminectomy syndrome #. Chronic lower back pain and radiculopathy #. Acute onset severe LBP w/ incontinence: Patient presents as transfer from OSH 03/08 with acute onset of severe LBP in the setting of years of chronic LBP after lumbar laminectomy about 11 years ago. Patient awoke from [facility] with severe 10/10 lumbar pain radiating around her flanks and down her legs. She also re ports bladder incontinence when standing since the onset of the pain. Her neuro exam shows l argely 5/5 strength, somewhat limited by pain, intact DTRs. The CT lumbar spine from OSH did not show any new compression fracture or other abnormality. Patient may have a muscular str ain, herniated disc, or lumbar stenosis. CT myelogram with moderate/severe foraminal narrow ing, discussed with neurosurgery regarding possible interventions likely will need to follow -up as an outpatient. - Follow-up neurosurgery recommendations - Pain control with APAP, oxycodone 5-10mg q4hrs prn. - Lidocaine patches to lower back, liberal use of heat/cold packs. #. VELAZQUEZ Patient with new headache this morning, worse when sitting or standing, resolved fully with lying flat. Possibly also related to caffeine, however also thought to be post LP headache . Discussed with APS who offered blood patch, patient declining at this time. -IVF -Caffeine -Appreciate APS consult #. Urinary incontinence: Reportedly began having urinary incontinence characterized as dribbling every time she stoo d up since 3am 03/08 when severe LBP started. She has not had this issue before. Currently sy mptoms improved somewhat as she is able to control her urination but has difficulty stopping her stream. #. Constipation: Patient has not had a BM in 3 days. This may be exacerbating her lower back pain. Encourag e bowel movement today and started with enema. - Start aggressive bowel regiment. #. Hx of sick sinus syndrome s/p PPM: From Care everywhere appears that patient presented to OSH in 2010 with symptomatic bradyca rdia in 30s w/ syncopal episodes. Underwent pacemaker placement. Has not had issues since . - EKG shows complete paced rhythm. - CTM #. Bipolar/schizoaffective disorder #. Anxiety: - Continue home lamotrigine 150mg daily - Continue home latuda 120mg daily - Continue home ziprasidone 80mg daily - Check lamictal level here. #. Insomnia: - Continue home trazodone 100mg at bedtime prn. #. GERD: - Famotidine BID #. HSV infection: - Continue home acyclovir BID Electrolytes: Replete PRN Nutrition: Reg Code Status: Full Disposition: Pending recommendations from neurosurgery and resolution of post LP headache, likely 03/11/2019 Chivo Tucker MD Clinical Hospitalist [facility] Pager [phone] I spent 38 minutes [id number] with the patient of which 63% was spent counseling the jeromy ent regarding treatment of back pain, headache. Mike Quintanilla MD,PhD - 03/10/2019 4:37 PM PDTFormatting of this note might be different from the o riginal. INPATIENT ADULT PAIN SERVICE INITIAL VISIT NOTE Date of Service: 03/10/2019 Author: Rob An MD Pain Service Attending Physician: Estella Moreno Reason for Evaluation: acute pain Requesting Provider: Service: Hospitalist Primary Care Physician: Jose Woods DO [phone] Main Complaint: Postural headache History of Present Illness: Ms. Lyon is a 58 y.o. Female with complicated psych and spine history transferred from OSH with acute /10 LBP that started 03/07 with new incontinence. Kristina nunez received a CT myelogram yesterday to investigate, believed to be unable to have MRI as is pacer dependent. APS was consulted for a new onset headache that began late last night after the CT with associated LP. She reports that the headache gets worse when she sits up or sta nds, becoming unbearable. She reports that it goes away when she lays flat. She denies any n tonie stiffness, visual or audio disturbances or radiation but does report nausea that also st arted at the same time, worsened with eating/drinking. The pain is throbbing b/l and frontal without radiation. She denies ever getting headaches at home. She has received tylenol and oxycodone that she reports helped a little. She says that she had a similar issue 4ish years ago, after a myelogram resulting in a "flu id leak" and postural headache that was treated well with a blood patch. In addition to back pain and headache she reports bladder incontinence and constipation. Past Pain History: History of chronic or preoperative pain: yes: location: midline low back and thoracic spin e. Typical intensity 5/10 Prior to hospitalization: No significant chronic use of opioids at home List of Medications during this hospitalization: Current Facility-Administered Medications Medication Dose Route Frequency Last Rate acetaminophen (TYLENOL) tablet 1,000 mg 1,000 mg oral TID acyclovir (ZOVIRAX) tablet 400 mg 400 mg oral BID famotidine (PEPCID) tablet 20 mg 20 mg oral BID fluticasone propionate (FLONASE) 50 mcg/actuation nasal spray 2 spray 2 spray both nos trils DAILY heparin injection 5,000 Units 5,000 Units subcutaneous Q12H (Scheduled) lamoTRIgine (LAMICTAL XR) ER tablet tr24 200 mg 1 tablet oral QPM lidocaine (LIDODERM) 5 % patch 1 patch 1 patch transdermal Q24H lurasidone (LATUDA) tablet 120 mg 120 mg oral QPM polyethylene glycol (MIRALAX) packet 17 g 17 g oral DAILY polyethylene glycol (MIRALAX) packet 17 g 17 g oral TID senna-docusate (SENOKOT S) 8.6-50 mg 2 tablet 2 tablet oral BID simvastatin (ZOCOR) tablet 40 mg 40 mg oral QPM Current Facility-Administered Medications Medication Dose Route Frequency Last Rate bisacodyl (DULCOLAX) suppository 10 mg 10 mg rectal DAILY PRN HYDROmorphone (DILAUDID) injection 0.2-0.6 mg 0.2-0.6 mg intravenous Q3H PRN methocarbamol (ROBAXIN) tablet 500 mg 500 mg oral Q6H PRN naloxone (NARCAN) injection intravenous PRN ondansetron ODT (ZOFRAN ODT) tablet 8 mg 8 mg oral Q12H PRN oxyCODONE (immediate release) (ROXICODONE) tablet 5-10 mg 5-10 mg oral Q4H PRN polyethylene glycol (MIRALAX) packet 34 g 34 g oral TID PRN prochlorperazine (COMPAZINE) injection 5-10 mg 5-10 mg intravenous Q6H PRN prochlorperazine (COMPAZINE) tablet 5-10 mg 5-10 mg oral Q6H PRN traZODone (DESYREL) tablet 200 mg 200 mg oral HS PRN Current Facility-Administered Medications Medication Dose Route Frequency Last Rate Allergies Allergen Reactions Apricot Pruritus "it will kill me" Gabapentin Pruritus and Facial Swelling Latex Pruritus Penicillin Hives and Angina Sulfa (Sulfonamide Antibiotics) Hives Review of systems: General: Patient complains of negative. Past Medical History: Past Medical History: Diagnosis Date Anxiety Asthma Bipolar 1 disorder (HCC) Depression HLD (hyperlipidemia) Lumbar post-laminectomy syndrome Schizoaffective disorder (HCC) Sick sinus syndrome (HCC) Past Surgical History: Past Surgical History Procedure Laterality Date Hernia repair Neck surgery Lumbar laminectomy Pacemaker placement Past Family History: Family History Problem Relation Pancreatic cancer Mother GI problems Father Stomach aneurysm bleed Social History: Social History Socioeconomic History Marital status: Single Spouse name: Not on file Number of children: Not on file Years of education: Not on file Highest education level: Not on file Occupational History Not on file Social Needs Financial resource strain: Not on file Food insecurity: Worry: Not on file Inability: Not on file Transportation needs: Medical: Not on file Non-medical: Not on file Tobacco Use Smoking status: Former Smoker Smokeless tobacco: Never Used Substance and Sexual Activity Alcohol use: Not Currently Drug use: Not on file Sexual activity: Not on file Lifestyle Physical activity: Days per week: Not on file Minutes per session: Not on file Stress: Not on file Relationships Social connections: Talks on phone: Not on file Gets together: Not on file Attends anabaptism service: Not on file Active member of club or organization: Not on file Attends meetings of clubs or organizations: Not on file Relationship status: Not on file Other Topics Concern Not on file Social History Narrative Not on file Labs: Lab Results Component Value Date WBC 6.84 03/10/2019 HB 13.0 03/10/2019 HCT 40.5 03/10/2019 PLT 201 03/10/2019 MCV 96.0 03/10/2019 RDW 44.8 03/10/2019 Lab Results Component Value Date NA 141 03/10/2019 K 4.0 03/10/2019 CL 109 (H) 03/10/2019 BICARB 27 03/10/2019 BUN 16 03/10/2019 CR 0.95 03/10/2019 GLU 90 03/10/2019 CA 8.5 (L) 03/10/2019 AST 17 03/10/2019 ALT 17 03/10/2019 AP 58 03/10/2019 TBILI 0.4 03/10/2019 TP 6.1 (L) 03/10/2019 ALB 3.3 (L) 03/10/2019 No results found for: APTT Radiology: Ct myelogram: IMPRESSION: 1. Technically successful lumbar puncture . 2. Moderate degenerative disc disease in the lower lumbar spine as detailed. Physical Exam: BP 151/87 (BP Location: Left upper arm, Patient Position: Lying right side) | Pulse 59 | Temp 36.6 C (97.9 F) (Oral) | Resp 16 | Ht 1.753 m (5' 9") | Wt 84.7 kg (186 lb 11.7 oz) | SpO2 99% | BMI 27.58 kg/m | BSA 2.03 m Systolic (24hrs), Av , Min:127 , Max:151 Diastolic (24hrs), Av, Min:69, Max:87 Pulse Min: 59 Max: 61 Temp Min: 36.4 C (97.5 F) Max: 36.8 C (98.2 F) Resp Min: 16 Max: 16 SpO2 Min: 93 % Max: 100 % General appearance: healthy, alert and cooperative HEENT: NCAT, PERRL, MMM Pulmonary: Regular, unlabored breathing Abdomen: not distended Neurological: CN 2-12 intact, no focal deficits MSK: Normal movement/strength all extremities Skin: No erythema or edema of exposed skin Psych: affect euthymic, full, congruent and appropriate Impression: Harriet Lyon is a 58 y.o. female with a history of chronic back pain requiring multip le lumbar and cervical surgeries as well as a spinal cord stimulator placement and recent ho spitalizations for worsening low back pain. Her new headache following her LP is suspicious for post dural puncture headache especially given the positional and bilateral symptoms. She has a history of one in the past after a dural puncture, which was relieved with an epidura l blood patch. Alternatively, this could be a tension headache vs exacerbation of her usual back pain. Reassuring lack of focal neuro deficits. Diagnosis: 1. Acute pain 2. Chronic pain 3. Acute positional headache Recommendations: 1. Given her report that the headache is keeping her from getting up and from ambulating we ll it is reasonable to offer a blood patch. She prefers, however, not to have any further pr ocedures at this time and much prefers to avoid a blood patch now because of pain of prior e pidural procedures. She stated she would like to try conservative measures first. This seems reasonable given ~90% of postdural puncture headaches resolve within a week. We will hold o ff for now and let her know we are available should she change her mind. 2. Recommend treating conservatively with IV fluids, caffeine, abdominal binder, and bed-re st as possible. 3. Multi-modalize pain regimen with tylenol, oxycodone 4. Continue to position flat if pain becomes too much 5. Steroid burst may be helpful but published evidence is not strong for this treatment. St eroids may have the added benefit of helping her back and leg pain as well. APS will sign off at this time but please re-consult us if there are further questions. Rob An MD I saw and evaluated Ms. Harriet Lyon with Resident: Dr. An, who conducted the [facility] history and physical examination. I personally interviewed the patient and performed the pertinent parts of the physical examination. I have reviewed the resident s note and I agree with the plan of care as documented. I have additional comments, as follows. Given Ms. Lyon' complex spinal surgery history, pr ior to epidural blood patch we would likely need to obtain thoracolumbar x-ray (to see locat ion of SCS leads and prior surgeries). Should Ms. Lyon desire one, we may need to perform th e blood patch in the OR, under fluoroscopy. I also edited this note. Estella Moreno MD,PhD ope, Chivo Franks MD - 03/09/2019 2:02 PM PDTFormatting of this note might be different from the o riginal. [facility] Progress Note Hospital Day #1 24 Hour Events: -Patient overall with continued increased pain, bladder incontinence intermittently, no sad dle anesthesia or bowel incontinence. -Patient continues to have significant back pain, has been present for the past month, slow ly worsening. Physical Examination: Last 24 hour min/max Temp: 36.7 C (98.1 F) Temp Min: 36.6 C (97.9 F) Max: 36.7 C (98.1 F) Pulse: 77 Pulse Min: 60 Max: 77 Resp: 16 Resp Min: 16 Max: 16 BP: 131/99 BP Min: 121/58 Max: 131/99 SpO2: 100 % SpO2 Min: 96 % Max: 100 % There is no height or weight on file to calculate BMI. Date 03/09/19 07 - 03/10/19 0659 Shift [id number] [id number] [id number] 24 Hour Total INTAKE P.O. 100 100 I.V. 5 5 Shift Total 105 105 OUTPUT Urine(mL/kg/hr) 350 350 Shift Total(mL/kg) 350(4.1) 350(4.1) Weight (kg) 84.7 84.7 84.7 84.7 General: Comfortable in bed. Head and Eyes: Head atraumatic. EOMI Neck: Supple. Cardiovascular: Regular rate and rhythm no murmurs rubs or gallops Pulmonary: clear bilaterally, no wheezes, rhonchi, rales Abdominal: Soft, nontender, nondistended, normoactive bowel sounds Extremities: no peripheral edema Neuro: 5 out of 5 bilateral upper extremity strength, except LUE abduction 4+/5 due to pain , 5/5 bilateral lower extremity strength decreased sensation in the left leg compared to R l eg, hyperreflexic patellar reflexes Laboratory Interpretation: Sodium 140 Potassium 4.1 Creatinine 0.82 Glucose 122 TSH 0.33 Free T4 1.2 WBC 5.16 Imaging Interpretation: Abdominal x-ray 03/09/2019: Mild stool burden and gas seen throughout a normal appearing col on and rectum without evidence for obstruction. Assessment and Plan Harriet Lyon is a 58 y.o. Female w/ pmh of chronic back and bilateral leg pain s/p mini mbar decompression laminectomy about 11 years ago and spinal cord stimulator placed 03/01/15, bipolar/schizoaffective disorder, anxiety, GERD, LHD, OA. She presents as transfer from OSH 03/08/19 with acutely worsening lower back pain and lower extremity weakness with reported jamar dder incontinence, and need for CT myelogram. #. Lumbar laminectomy syndrome #. Chronic lower back pain and radiculopathy #. Acute onset severe LBP w/ incontinence: Patient presents as transfer from OSH 03/08 with acute onset of severe LBP in the setting of years of chronic LBP after lumbar laminectomy about 11 years ago. Patient awoke from [facility] with severe 10/10 lumbar pain radiating around her flanks and down her legs. She has bee n unable to walk secondary to the pain since then. She also reports bladder incontinence whe n standing since the onset of the pain. Her neuro exam shows largely 5/5 strength, somewhat limited by pain, intact DTRs, and intact sensation. The CT lumbar spine from OSH did not delvin w any new compression fracture or other abnormality. Patient may have a muscular strain, her niated disc, or lumbar stenosis. -Follow-up CT myelogram - Pain control with APAP, oxycodone 5-10mg q4hrs prn, dilaudid 0.2-0.6mg for severe pain. - Lidocaine patches to lower back, liberal use of heat/cold packs. #. Urinary incontinence: Reportedly began having urinary incontinence characterized as dribbling every time she stoo d up since 3am 03/08 when severe LBP started. She has not had this issue before. She has been emptying her bladder she feels with every bathroom use. No hx of hysterectomy. - Lumbar eval as above. #. Constipation: Patient has not had a BM in 3 days. This may be exacerbating her lower back pain. - Start aggressive bowel regiment. #. Hx of sick sinus syndrome s/p PPM: From Care everywhere appears that patient presented to OSH in 2010 with symptomatic bradyca rdia in 30s w/ syncopal episodes. Underwent pacemaker placement. Has not had issues since . - EKG shows complete paced rhythm. - CTM #. Bipolar/schizoaffective disorder #. Anxiety: - Continue home lamotrigine 150mg daily - Continue home latuda 120mg daily - Continue home ziprasidone 80mg daily - Check lamictal level here. #. Insomnia: - Continue home trazodone 100mg at bedtime prn. #. GERD: - Famotidine BID #. HSV infection: - Continue home acyclovir BID Electrolytes: Replete PRN Nutrition: Reg Code Status: Full Disposition: Pending results of myelogram Chivo Tucker MD Clinical Hospitalist [facility] Pager [phone] I spent 33 minutes [id number] with the patient of which 59% was spent counseling the jeromy ent regarding treatment of back pain. documented in this enc ounter Plan of Treatment Not on filedocumented as of this encounter Procedures + +--------+ + + + | Procedure Name | Priori | Date/Time | Associated Diagnosis | Comments | | | ty | | | | + +--------+ + + + | CBC AND AUTO DIFF | Routin | 03/11/2019 | | Results for this | | | e | 4:13 AM | | procedure are in the | | | | PDT | | results section. | + +--------+ + + + | CBC, WITH | Routin | 03/11/2019 | | Results for this | | DIFFERENTIAL | e | 4:13 AM | | procedure are in the | | | | PDT | | results section. | + +--------+ + + + | COMPLETE METABOLIC | Routin | 03/11/2019 | | Results for this | | SET | e | 4:13 AM | | procedure are in the | | (NA,K,CL,CO2,BUN,CRE | | PDT | | results section. | | AT,GLUC,CA,AST,ALT,B | | | | | | ACE TOTAL,ALK | | | | | | PHOS,ALB,PROT TOTAL) | | | | | + +--------+ + + + | MAGNESIUM, PLASMA | Routin | 03/11/2019 | | Results for this | | | e | 4:13 AM | | procedure are in the | | | | PDT | | results section. | + +--------+ + + + | CBC AND AUTO DIFF | Routin | 03/10/2019 | | Results for this | | | e | 4:00 AM | | procedure are in the | | | | PDT | | results section. | + +--------+ + + + | CBC, WITH | Routin | 03/10/2019 | | Results for this | | DIFFERENTIAL | e | 4:00 AM | | procedure are in the | | | | PDT | | results section. | + +--------+ + + + | COMPLETE METABOLIC | Routin | 03/10/2019 | | Results for this | | SET | e | 4:00 AM | | procedure are in the | | (NA,K,CL,CO2,BUN,CRE | | PDT | | results section. | | AT,GLUC,CA,AST,ALT,B | | | | | | ACE TOTAL,ALK | | | | | | PHOS,ALB,PROT TOTAL) | | | | | + +--------+ + + + | HEMOGLOBIN A1C, | Routin | 03/10/2019 | | Results for this | | BLOOD | e | 4:00 AM | | procedure are in the | | | | PDT | | results section. | + +--------+ + + + | MAGNESIUM, PLASMA | Routin | 03/10/2019 | | Results for this | | | e | 4:00 AM | | procedure are in the | | | | PDT | | results section. | + +--------+ + + + | POST MYELOGRAM CT | Routin | 03/09/2019 | | Results for this | | SPINE LUMBAR W | e | 2:25 PM | | procedure are in the | | CONTRAST | | PDT | | results section. | + +--------+ + + + | X-RAY MYELOGRAM | Routin | 03/09/2019 | | Results for this | | LUMBOSACRAL | e | 2:15 PM | | procedure are in the | | W/INJECTION | | PDT | | results section. | + +--------+ + + + | INR | Urgent | 03/09/2019 | | Results for this | | | | 10:12 AM | | procedure are in the | | | | PDT | | results section. | + +--------+ + + + | X-RAY PORTABLE | Urgent | 03/09/2019 | | Results for this | | ABDOMEN 1 VIEW | | 1:59 AM | | procedure are in the | | | | PDT | | results section. | + +--------+ + + + | MYOSITIS EXTENDED | Routin | 03/09/2019 | | Results for this | | PANEL | e | 1:44 AM | | procedure are in the | | | | PDT | | results section. | + +--------+ + + + | TSH W/REFLEX TO FREE | Urgent | 03/09/2019 | | Results for this | | T4(IF ABNORMAL) | | 1:44 AM | | procedure are in the | | | | PDT | | results section. | + +--------+ + + + | SHLOMO BY CHASTITY | Routin | 03/09/2019 | | Results for this | | W/REFLEX TO IFA | e | 1:44 AM | | procedure are in the | | PATTERN & AB ID WHEN | | PDT | | results section. | | INDICATED | | | | | + +--------+ + + + | CBC AND AUTO DIFF | Urgent | 03/09/2019 | | Results for this | | | | 1:44 AM | | procedure are in the | | | | PDT | | results section. | + +--------+ + + + | CBC, WITH | Urgent | 03/09/2019 | | Results for this | | DIFFERENTIAL | | 1:44 AM | | procedure are in the | | | | PDT | | results section. | + +--------+ + + + | LAMOTRIGINE, SERUM | Routin | 03/09/2019 | | Results for this | | | e | 1:44 AM | | procedure are in the | | | | PDT | | results section. | + +--------+ + + + | COMPLETE METABOLIC | Urgent | 03/09/2019 | | Results for this | | SET | | 1:44 AM | | procedure are in the | | (NA,K,CL,CO2,BUN,CRE | | PDT | | results section. | | AT,GLUC,CA,AST,ALT,B | | | | | | ACE TOTAL,ALK | | | | | | PHOS,ALB,PROT TOTAL) | | | | | + +--------+ + + + | ANTI NEUTROPHIL | Routin | 03/09/2019 | | Results for this | | CYTOPLASMIC AB SCN, | e | 1:44 AM | | procedure are in the | | SERUM | | PDT | | results section. | + +--------+ + + + | C-REACTIVE PROTEIN | Routin | 03/09/2019 | | Results for this | | | e | 1:44 AM | | procedure are in the | | | | PDT | | results section. | + +--------+ + + + | SEDIMENTATION RATE | Routin | 03/09/2019 | | Results for this | | | e | 1:44 AM | | procedure are in the | | | | PDT | | results section. | + +--------+ + + + | FREE T4 | Urgent | 03/09/2019 | | Results for this | | | | 1:44 AM | | procedure are in the | | | | PDT | | results section. | + +--------+ + + + | CK, PLASMA | Urgent | 03/09/2019 | | Results for this | | | | 1:44 AM | | procedure are in the | | | | PDT | | results section. | + +--------+ + + + | 12 LEAD ECG | Routin | 03/09/2019 | | Results for this | | | e | 1:03 AM | | procedure are in the | | | | PDT | | results section. | + +--------+ + + + documented in this encounter Results CBC AND AUTO DIFF (03/11/2019 4:13 AM PDT) + + + + + + | Component | Value | Ref Range | Performed | Pathologist | | | | | At | Signature | + + + + + + | WHITE CELL | 5.66 | 3.50 - 10.80 | [facility] | | | COUNT | | K/cu mm | LABORATORY | | | | | | SERVICES, | | | | | | CORE | | + + + + + + | RED CELL | 4.13 | 4.00 - 5.20 | [facility] | | | COUNT | | M/cu mm | LABORATORY | | | | | | SERVICES, | | | | | | CORE | | + + + + + + | HEMOGLOBIN | 12.9 | 12.0 - 16.0 | [facility] | | | | | g/dL | LABORATORY | | | | | | SERVICES, | | | | | | CORE | | + + + + + + | HEMATOCRIT | 39.6 | 36.0 - 46.0 % | [facility] | | | | | | LABORATORY | | | | | | SERVICES, | | | | | | CORE | | + + + + + + | MCV | 95.9 | 80.0 - 100.0 fL | [facility] | | | | | | LABORATORY | | | | | | SERVICES, | | | | | | CORE | | + + + + + + | MCHC | 32.6 | 32.0 - 36.0 | [facility] | | | | | g/dL | LABORATORY | | | | | | SERVICES, | | | | | | CORE | | + + + + + + | RDW SD | 44.5 | 35.1 - 46.3 fL | [facility] | | | | | | LABORATORY | | | | | | SERVICES, | | | | | | CORE | | + + + + + + | PLATELET | 220 | 150 - 400 K/cu | [facility] | | | COUNT | | mm | LABORATORY | | | | | | SERVICES, | | | | | | CORE | | + + + + + + | MPV | 9.2 (L) | 9.7 - 12.3 fL | [facility] | | | | | | LABORATORY | | | | | | SERVICES, | | | | | | CORE | | + + + + + + | NRBC% | 0.0 | 0.0 - 0.3 % | [facility] | | | | | | LABORATORY | | | | | | SERVICES, | | | | | | CORE | | + + + + + + | NRBC# | 0.00 | 0.00 - 0.02 | [facility] | | | | | K/cu mm | LABORATORY | | | | | | SERVICES, | | | | | | CORE | | + + + + + + | NEUTROPHIL | 34.5 (L) | 50.0 - 70.0 % | [facility] | | | % | | | LABORATORY | | | | | | SERVICES, | | | | | | CORE | | + + + + + + | LYMPHOCYTE | 51.1 (H) | 18.0 - 42.0 % | [facility] | | | % | | | LABORATORY | | | | | | SERVICES, | | | | | | CORE | | + + + + + + | MONOCYTE % | 10.1 (H) | 3.5 - 9.0 % | [facility] | | | | | | LABORATORY | | | | | | SERVICES, | | | | | | CORE | | + + + + + + | EOS % | 3.0 | 1.0 - 3.0 % | [facility] | | | | | | LABORATORY | | | | | | SERVICES, | | | | | | CORE | | + + + + + + | BASO % | 1.1 | 0.0 - 2.0 % | [facility] | | | | | | LABORATORY | | | | | | SERVICES, | | | | | | CORE | | + + + + + + | IG% | 0.2Comment: Increased | 0.0 - 1.0 % | [facility] | | | | immature granulocytes | | LABORATORY | | | | (IG) define a left | | SERVICES, | | | | shift. Immature | | CORE | | | | granulocytes (IG) are an | | | | | | automated count of | | | | | | metamyelocytes, | | | | | | myelocytes and | | | | | | promyelocytes. Bands | | | | | | are not included in the | | | | | | IG count. Bands are | | | | | | included in the | | | | | | neutrophil count. | | | | + + + + + + | NEUTROPHIL | 1.96 | 1.80 - 7.70 | [facility] | | | # | | K/cu mm | LABORATORY | | | | | | SERVICES, | | | | | | CORE | | + + + + + + | LYMPHOCYTE | 2.89 | 1.00 - 4.80 | [facility] | | | # | | K/cu mm | LABORATORY | | | | | | SERVICES, | | | | | | CORE | | + + + + + + | MONOCYTE # | 0.57 | 0.10 - 0.90 | [facility] | | | | | K/cu mm | LABORATORY | | | | | | SERVICES, | | | | | | CORE | | + + + + + + | EOS # | 0.17 | 0.00 - 0.50 | [facility] | | | | | K/cu mm | LABORATORY | | | | | | SERVICES, | | | | | | CORE | | + + + + + + | BASO # | 0.06 | 0.00 - 0.10 | [facility] | | | | | K/cu mm | LABORATORY | | | | | | SERVICES, | | | | | | CORE | | + + + + + + | IG# | 0.01 | 0.00 - 0.10 | [facility] | | | | | K/cu mm | LABORATORY | | | | | | SERVICES, | | | | | | CORE | | + + + + + + + + | Specimen | + + | Blood - Blood | | (substance) | + + + + + | Narrative | Performed At | + + + | Increased immature granulocytes (IG) define a left shift. Immature | [facility] | | granulocytes (IG) are an automated count of metamyelocytes, myelocytes | LABORATORY | | and promyelocytes. Bands are not included in the IG count. Bands are | SERVICES, CORE | | included in the neutrophil count. | | + + + + + + + + | Performing | Address | City/State/Zipcode | Phone Number | | Organization | | | | + + + + + | [facility] | [address] | [place] [address] | | | SERVICES, CORE | [address] | | | + + + + + MAGNESIUM, PLASMA (03/11/2019 4:13 AM PDT) + +-------+ + + + | Component | Value | Ref Range | Performed | Pathologist | | | | | At | Signature | + +-------+ + + + | MAGNESIUM,P | 2.2 | 1.6 - 2.6 mg/dL | [facility] | | | LASMA | | | LABORATORY | | | | | | SERVICES, | | | | | | CORE | | + +-------+ + + + + + | Specimen | + + | Blood - Blood | | (substance) | + + + + + + + | Performing | Address | City/State/Zipcode | Phone Number | | Organization | | | | + + + + + | [facility] | [address] | [place] [address] | | | SERVICES, VINCENT | [address] | | | + + + + + COMPLETE METABOLIC SET (NA,K,CL,CO2,BUN,CREAT,GLUC,CA,AST,ALT,BILI TOTAL,ALK PHOS,ALB,PROT TOTAL) (03/11/2019 4:13 AM PDT) + +---------+ + + + | Component | Value | Ref Range | Performed | Pathologist | | | | | At | Signature | + +---------+ + + + | GLUCOSE, | 90 | 70 - 99 mg/dL | [facility] | | | PLASMA | | | LABORATORY | | | (LAB) | | | SERVICES, | | | | | | CORE | | + +---------+ + + + | BUN, PLASMA | 12 | 6 - 20 mg/dL | [facility] | | | (LAB) | | | LABORATORY | | | | | | SERVICES, | | | | | | CORE | | + +---------+ + + + | CREATININE | 0.96 | 0.60 - 1.10 | [facility] | | | PLASMA | | mg/dL | LABORATORY | | | (LAB) | | | SERVICES, | | | | | | CORE | | + +---------+ + + + | EGFR | >60 | >60 mL/min | [facility] | | | - | | | LABORATORY | | | [facility] | | | SERVICES, | | | | | | CORE | | + +---------+ + + + | EGFR NON | 59 (L) | >60 mL/min | [facility] | | | -[facility] | | | LABORATORY | | | RICAN | | | SERVICES, | | | | | | CORE | | + +---------+ + + + | SODIUM, | 141 | 136 - 145 | [facility] | | | PLASMA | | mmol/L | LABORATORY | | | (LAB) | | | SERVICES, | | | | | | CORE | | + +---------+ + + + | POTASSIUM, | 3.8 | 3.4 - 5.0 | [facility] | | | PLASMA | | mmol/L | LABORATORY | | | (LAB) | | | SERVICES, | | | | | | CORE | | + +---------+ + + + | CHLORIDE, | 109 (H) | 97 - 108 mmol/L | [facility] | | | PLASMA | | | LABORATORY | | | (LAB) | | | SERVICES, | | | | | | CORE | | + +---------+ + + + | TOTAL CO2, | 29 | 21 - 32 mmol/L | [facility] | | | PLASMA | | | LABORATORY | | | (LAB) | | | SERVICES, | | | | | | CORE | | + +---------+ + + + | CALCIUM, | 8.6 | 8.6 - 10.2 | [facility] | | | PLASMA | | mg/dL | LABORATORY | | | (LAB) | | | SERVICES, | | | | | | CORE | | + +---------+ + + + | CALCIUM(ALB | 9.2 | 8.6 - 10.2 | [facility] | | | CORRECTED) | | mg/dL | LABORATORY | | | | | | SERVICES, | | | | | | CORE | | + +---------+ + + + | BILIRUBIN | 0.5 | 0.3 - 1.2 mg/dL | [facility] | | | TOTAL | | | LABORATORY | | | | | | SERVICES, | | | | | | CORE | | + +---------+ + + + | TOTAL | 6.0 (L) | 6.4 - 8.2 g/dL | [facility] | | | PROTEIN, | | | LABORATORY | | | PLASMA | | | SERVICES, | | | (LAB) | | | CORE | | + +---------+ + + + | ALBUMIN, | 3.3 (L) | 3.5 - 4.7 g/dL | [facility] | | | PLASMA | | | LABORATORY | | | (LAB) | | | SERVICES, | | | | | | CORE | | + +---------+ + + + | ALK PHOS | 58 | 42 - 98 U/L | [facility] | | | | | | LABORATORY | | | | | | SERVICES, | | | | | | CORE | | + +---------+ + + + | AST(SGOT) | 19 | <=41 U/L | [facility] | | | | | | LABORATORY | | | | | | SERVICES, | | | | | | CORE | | + +---------+ + + + | ALT (SGPT) | 17 | <=60 U/L | [facility] | | | | | | LABORATORY | | | | | | SERVICES, | | | | | | CORE | | + +---------+ + + + | ANION GAP | 3 (L) | 4 - 11 mmol/L | [facility] | | | | | | LABORATORY | | | | | | SERVICES, | | | | | | CORE | | + +---------+ + + + | ANION | 4 | 4 - 11 mmol/L | [facility] | | | GAP(ALB | | | LABORATORY | | | CORRECTED) | | | SERVICES, | | | | | | CORE | | + +---------+ + + + | POTASSIUM | No Hemo | | [facility] | | | CMNT | | | LABORATORY | | | | | | SERVICES, | | | | | | CORE | | + +---------+ + + + | BILI T CMNT | No Hemo | | [facility] | | | | | | LABORATORY | | | | | | SERVICES, | | | | | | CORE | | + +---------+ + + + | AST CMNT | No Hemo | | [facility] | | | | | | LABORATORY | | | | | | SERVICES, | | | | | | CORE | | + +---------+ + + + + + | Specimen | + + | Blood - Blood | | (substance) | + + + + + | Narrative | Performed At | + + + | GFR is estimated using the MDRD equation recommended by the National | [facility] | | Kidney Disease Education Program. Estimated GFR Interpretive | LABORATORY | | Information: <60 mL/min/1.73 sq m Chronic Kidney | SERVICES, CORE | | Disease <15 mL/min/1.73 sq m Kidney Failure | | | Estimated GFR greater than 60 mL/min/1.73 sq m is of limited clinical | | | value. The MDRD equation is not valid in the following situations: - | | | Patients under 18 years of age - Severe malnutrition or obesity - | | | Vegetarian diet - Rapidly changing kidney function - Amputees, | | | paraplegics, or other muscle-wasting diseses | | + + + + + + + + | Performing | Address | City/State/Zipcode | Phone Number | | Organization | | | | + + + + + | [facility] | [address] | [place] [address] | | | SERVICES, CORE | [address] | | | + + + + + CBC AND AUTO DIFF (03/10/2019 4:00 AM PDT) + + + + + + | Component | Value | Ref Range | Performed | Pathologist | | | | | At | Signature | + + + + + + | WHITE CELL | 6.84 | 3.50 - 10.80 | [facility] | | | COUNT | | K/cu mm | LABORATORY | | | | | | SERVICES, | | | | | | CORE | | + + + + + + | RED CELL | 4.22 | 4.00 - 5.20 | [facility] | | | COUNT | | M/cu mm | LABORATORY | | | | | | SERVICES, | | | | | | CORE | | + + + + + + | HEMOGLOBIN | 13.0 | 12.0 - 16.0 | [facility] | | | | | g/dL | LABORATORY | | | | | | SERVICES, | | | | | | CORE | | + + + + + + | HEMATOCRIT | 40.5 | 36.0 - 46.0 % | [facility] | | | | | | LABORATORY | | | | | | SERVICES, | | | | | | CORE | | + + + + + + | MCV | 96.0 | 80.0 - 100.0 fL | [facility] | | | | | | LABORATORY | | | | | | SERVICES, | | | | | | CORE | | + + + + + + | MCHC | 32.1 | 32.0 - 36.0 | [facility] | | | | | g/dL | LABORATORY | | | | | | SERVICES, | | | | | | CORE | | + + + + + + | RDW SD | 44.8 | 35.1 - 46.3 fL | [facility] | | | | | | LABORATORY | | | | | | SERVICES, | | | | | | CORE | | + + + + + + | PLATELET | 201 | 150 - 400 K/cu | [facility] | | | COUNT | | mm | LABORATORY | | | | | | SERVICES, | | | | | | CORE | | + + + + + + | MPV | 8.8 (L) | 9.7 - 12.3 fL | [facility] | | | | | | LABORATORY | | | | | | SERVICES, | | | | | | CORE | | + + + + + + | NRBC% | 0.0 | 0.0 - 0.3 % | [facility] | | | | | | LABORATORY | | | | | | SERVICES, | | | | | | CORE | | + + + + + + | NRBC# | 0.00 | 0.00 - 0.02 | [facility] | | | | | K/cu mm | LABORATORY | | | | | | SERVICES, | | | | | | CORE | | + + + + + + | NEUTROPHIL | 36.0 (L) | 50.0 - 70.0 % | [facility] | | | % | | | LABORATORY | | | | | | SERVICES, | | | | | | CORE | | + + + + + + | LYMPHOCYTE | 53.8 (H) | 18.0 - 42.0 % | [facility] | | | % | | | LABORATORY | | | | | | SERVICES, | | | | | | CORE | | + + + + + + | MONOCYTE % | 7.7 | 3.5 - 9.0 % | [facility] | | | | | | LABORATORY | | | | | | SERVICES, | | | | | | CORE | | + + + + + + | EOS % | 1.5 | 1.0 - 3.0 % | [facility] | | | | | | LABORATORY | | | | | | SERVICES, | | | | | | CORE | | + + + + + + | BASO % | 0.9 | 0.0 - 2.0 % | [facility] | | | | | | LABORATORY | | | | | | SERVICES, | | | | | | CORE | | + + + + + + | IG% | 0.1Comment: Increased | 0.0 - 1.0 % | [facility] | | | | immature granulocytes | | LABORATORY | | | | (IG) define a left | | SERVICES, | | | | shift. Immature | | CORE | | | | granulocytes (IG) are an | | | | | | automated count of | | | | | | metamyelocytes, | | | | | | myelocytes and | | | | | | promyelocytes. Bands | | | | | | are not included in the | | | | | | IG count. Bands are | | | | | | included in the | | | | | | neutrophil count. | | | | + + + + + + | NEUTROPHIL | 2.46 | 1.80 - 7.70 | [facility] | | | # | | K/cu mm | LABORATORY | | | | | | SERVICES, | | | | | | CORE | | + + + + + + | LYMPHOCYTE | 3.68 | 1.00 - 4.80 | [facility] | | | # | | K/cu mm | LABORATORY | | | | | | SERVICES, | | | | | | CORE | | + + + + + + | MONOCYTE # | 0.53 | 0.10 - 0.90 | [facility] | | | | | K/cu mm | LABORATORY | | | | | | SERVICES, | | | | | | CORE | | + + + + + + | EOS # | 0.10 | 0.00 - 0.50 | [facility] | | | | | K/cu mm | LABORATORY | | | | | | SERVICES, | | | | | | CORE | | + + + + + + | BASO # | 0.06 | 0.00 - 0.10 | [facility] | | | | | K/cu mm | LABORATORY | | | | | | SERVICES, | | | | | | CORE | | + + + + + + | IG# | 0.01 | 0.00 - 0.10 | [facility] | | | | | K/cu mm | LABORATORY | | | | | | SERVICES, | | | | | | CORE | | + + + + + + + + | Specimen | + + | Blood - Blood | | (substance) | + + + + + | Narrative | Performed At | + + + | Increased immature granulocytes (IG) define a left shift. Immature | [facility] | | granulocytes (IG) are an automated count of metamyelocytes, myelocytes | LABORATORY | | and promyelocytes. Bands are not included in the IG count. Bands are | SERVICES, CORE | | included in the neutrophil count. | | + + + + + + + + | Performing | Address | City/State/Zipcode | Phone Number | | Organization | | | | + + + + + | [facility] | [address] | [place] [address] | | | SERVICES, CORE | [address] | | | + + + + + MAGNESIUM, PLASMA (03/10/2019 4:00 AM PDT) + +-------+ + + + | Component | Value | Ref Range | Performed | Pathologist | | | | | At | Signature | + +-------+ + + + | MAGNESIUM,P | 2.2 | 1.6 - 2.6 mg/dL | [facility] | | | LASMA | | | LABORATORY | | | | | | SERVICES, | | | | | | CORE | | + +-------+ + + + + + | Specimen | + + | Blood - Blood | | (substance) | + + + + + + + | Performing | Address | City/State/Zipcode | Phone Number | | Organization | | | | + + + + + | [facility] | [address] | [place] [address] | | | SERVICES, CORE | [address] | | | + + + + + COMPLETE METABOLIC SET (NA,K,CL,CO2,BUN,CREAT,GLUC,CA,AST,ALT,BILI TOTAL,ALK PHOS,ALB,PROT TOTAL) (03/10/2019 4:00 AM PDT) + +---------+ + + + | Component | Value | Ref Range | Performed | Pathologist | | | | | At | Signature | + +---------+ + + + | GLUCOSE, | 90 | 70 - 99 mg/dL | [facility] | | | PLASMA | | | LABORATORY | | | (LAB) | | | SERVICES, | | | | | | CORE | | + +---------+ + + + | BUN, PLASMA | 16 | 6 - 20 mg/dL | [facility] | | | (LAB) | | | LABORATORY | | | | | | SERVICES, | | | | | | CORE | | + +---------+ + + + | CREATININE | 0.95 | 0.60 - 1.10 | [facility] | | | PLASMA | | mg/dL | LABORATORY | | | (LAB) | | | SERVICES, | | | | | | CORE | | + +---------+ + + + | EGFR | >60 | >60 mL/min | [facility] | | | - | | | LABORATORY | | | [facility] | | | SERVICES, | | | | | | CORE | | + +---------+ + + + | EGFR NON | 60 (L) | >60 mL/min | [facility] | | | -[facility] | | | LABORATORY | | | RICAN | | | SERVICES, | | | | | | CORE | | + +---------+ + + + | SODIUM, | 141 | 136 - 145 | [facility] | | | PLASMA | | mmol/L | LABORATORY | | | (LAB) | | | SERVICES, | | | | | | CORE | | + +---------+ + + + | POTASSIUM, | 4.0 | 3.4 - 5.0 | [facility] | | | PLASMA | | mmol/L | LABORATORY | | | (LAB) | | | SERVICES, | | | | | | CORE | | + +---------+ + + + | CHLORIDE, | 109 (H) | 97 - 108 mmol/L | [facility] | | | PLASMA | | | LABORATORY | | | (LAB) | | | SERVICES, | | | | | | CORE | | + +---------+ + + + | TOTAL CO2, | 27 | 21 - 32 mmol/L | [facility] | | | PLASMA | | | LABORATORY | | | (LAB) | | | SERVICES, | | | | | | CORE | | + +---------+ + + + | CALCIUM, | 8.5 (L) | 8.6 - 10.2 | [facility] | | | PLASMA | | mg/dL | LABORATORY | | | (LAB) | | | SERVICES, | | | | | | CORE | | + +---------+ + + + | CALCIUM(ALB | 9.1 | 8.6 - 10.2 | [facility] | | | CORRECTED) | | mg/dL | LABORATORY | | | | | | SERVICES, | | | | | | CORE | | + +---------+ + + + | BILIRUBIN | 0.4 | 0.3 - 1.2 mg/dL | [facility] | | | TOTAL | | | LABORATORY | | | | | | SERVICES, | | | | | | CORE | | + +---------+ + + + | TOTAL | 6.1 (L) | 6.4 - 8.2 g/dL | [facility] | | | PROTEIN, | | | LABORATORY | | | PLASMA | | | SERVICES, | | | (LAB) | | | CORE | | + +---------+ + + + | ALBUMIN, | 3.3 (L) | 3.5 - 4.7 g/dL | [facility] | | | PLASMA | | | LABORATORY | | | (LAB) | | | SERVICES, | | | | | | CORE | | + +---------+ + + + | ALK PHOS | 58 | 42 - 98 U/L | [facility] | | | | | | LABORATORY | | | | | | SERVICES, | | | | | | CORE | | + +---------+ + + + | AST(SGOT) | 17 | <=41 U/L | [facility] | | | | | | LABORATORY | | | | | | SERVICES, | | | | | | CORE | | + +---------+ + + + | ALT (SGPT) | 17 | <=60 U/L | [facility] | | | | | | LABORATORY | | | | | | SERVICES, | | | | | | CORE | | + +---------+ + + + | ANION GAP | 5 | 4 - 11 mmol/L | [facility] | | | | | | LABORATORY | | | | | | SERVICES, | | | | | | CORE | | + +---------+ + + + | ANION | 6 | 4 - 11 mmol/L | [facility] | | | GAP(ALB | | | LABORATORY | | | CORRECTED) | | | SERVICES, | | | | | | CORE | | + +---------+ + + + | POTASSIUM | No Hemo | | [facility] | | | CMNT | | | LABORATORY | | | | | | SERVICES, | | | | | | CORE | | + +---------+ + + + | BILI T CMNT | No Hemo | | [facility] | | | | | | LABORATORY | | | | | | SERVICES, | | | | | | CORE | | + +---------+ + + + | AST CMNT | No Hemo | | [facility] | | | | | | LABORATORY | | | | | | SERVICES, | | | | | | CORE | | + +---------+ + + + + + | Specimen | + + | Blood - Blood | | (substance) | + + + + + | Narrative | Performed At | + + + | GFR is estimated using the MDRD equation recommended by the National | [facility] | | Kidney Disease Education Program. Estimated GFR Interpretive | LABORATORY | | Information: <60 mL/min/1.73 sq m Chronic Kidney | SERVICES, CORE | | Disease <15 mL/min/1.73 sq m Kidney Failure | | | Estimated GFR greater than 60 mL/min/1.73 sq m is of limited clinical | | | value. The MDRD equation is not valid in the following situations: - | | | Patients under 18 years of age - Severe malnutrition or obesity - | | | Vegetarian diet - Rapidly changing kidney function - Amputees, | | | paraplegics, or other muscle-wasting diseses | | + + + + + + + + | Performing | Address | City/State/Zipcode | Phone Number | | Organization | | | | + + + + + | [facility] | [address] | [place] [address] | | | SERVICES, VINCENT | [address] | | | + + + + + HEMOGLOBIN A1C, BLOOD (03/10/2019 4:00 AM PDT) + + + + + + | Component | Value | Ref Range | Performed | Pathologist | | | | | At | Signature | + + + + + + | HEMOGLOBIN | 5.7 (H)Comment: Hgb A1C | <5.7 % | [facility] | | | A1C | Interpretive | | LABORATORY | | | | Information: | | SERVICES, | | | | <5.7% - Normal | | SPECIAL IMM | | | | 5.7-6.4% - Consistent | | + COAG | | | | with pre-diabetes | | | | | | >6.4% - Consistent | | | | | | with diabetes | | | | | | | | | | + + + + + + | ESTIMATED | 117Comment: The | mg/dL | [facility] | | | AVERAGE | estimated Average | | LABORATORY | | | GLUCOSE | Glucose (eAG) number is | | SERVICES, | | | | calculated from the | | SPECIAL IMM | | | | result of the A1c test. | | + COAG | | | | The eAG shows what the | | | | | | average blood glucose | | | | | | was over the previous 2 | | | | | | to 3 months. 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 | | + + + + + + + + | Performing | Address | City/State/Zipcode | Phone Number | | Organization | | | | + + + + + | [facility] | [address] | [place] [address] | | | SERVICES, SPECIAL | [address] | | | | IMM + [place] | | | | + + + + + POST MYELOGRAM CT SPINE LUMBAR W CONTRAST (03/09/2019 2:25 PM PDT) + + | Specimen | + + | | + + + + + | Narrative | Performed At | + + + | PROCEDURE: LUMBAR X-RAY AND CT MYELOGRAM HISTORY: severe back | [facility] | | pain and weakness following fall (pacer and spinal cord stimulator) | RADIOLOGY VOICE | | COMPARISON: External spine CT dated 03/08/2019 TECHNIQUE: The | RECOGNITION 2 | | patient consented after PARQ discussion. A team pause was performed. | | | Myelography was performed under fluoroscopic guidance using standard | | | aseptic technique. 5 mL of 1% preservative free lidocaine was used | | | for local anesthesia. Lumbar puncture was performed at L3-4 with a | | | 20 gauge 5 inch spinal needle. Multiple fluoroscopic views of the | | | lumbar spine were then obtained. No immediate complications of the | | | procedure were observed. Intrathecal contrast: Omnipaque 240, | | | 10 mL Physician(s) present: MD Emerald Orantes V | | | MD Jorge X-ray lumbar myelogram and post contrast CT images | | | of the lumbar spine with sagittal and coronal reformations were | | | obtained. FINDINGS: X-RAY LUMBAR MYELOGRAM: The thecal sac | | | is patent with no block to contrast. No acute fracture. | | | Neurostimulator device in place. CT MYELOGRAM: ALIGNMENT: | | | Normal. VERTEBRAE: No fractures . No evidence of epidural | | | collection to suggest hemorrhage. L1-2: Unremarkable. L2-3: Mild | | | disc bulge with no significant canal stenosis. L3-4: Mild disc bulge | | | with minimal canal stenosis. L4-5: Moderate disc bulge with mild | | | canal stenosis and left lateral recess effacement. There is also mild | | | bilateral foraminal narrowing. L5-S1: Disc bulge and left paracentral | | | soft tissue, likely disc protrusion, with effacement of the left | | | lateral recess. Disc osteophyte complex bilaterally produces moderate | | | to severe foraminal narrowing. PARASPINAL SOFT TISSUES: | | | Unremarkable. IMPRESSION: 1. Technically successful lumbar | | | puncture . 2. Moderate degenerative disc disease in the lower lumbar | | | spine as detailed. By my electronic signature listed below, I, the | | | attending radiologist, was present for the critical portions of the | | | procedure as described in this note. I have personally reviewed | | | the images and, if necessary, edited the report. I agree with the | | | report as now presented. Final signature: Emerald Patel MD | | | 03/10/2019 9:39 AM Preliminary: Colin Caldera MD 03/10/2019 | | | 9:29 AM Dictation initiated: Colin Caldera MD 03/09/2019 3:30 PM | | + + + + + | Procedure Note | + + | Service Account, Radiant Res In Interface - 03/10/2019 9:40 AM PDT PROCEDURE: | | LUMBAR X-RAY AND CT MYELOGRAM HISTORY: severe back pain and weakness following fall | | (pacer and spinal cord stimulator) COMPARISON: External spine CT dated 03/08/2019 | | TECHNIQUE: The patient consented after PARQ discussion. A team pause was performed. | | Myelography was performed under fluoroscopic guidance using standard aseptic technique. | | 5 mL of 1% preservative free lidocaine was used for local anesthesia. Lumbar puncture | | was performed at L3-4 with a 20 gauge 5 inch spinal needle. Multiple fluoroscopic views | | of the lumbar spine were then obtained. No immediate complications of the procedure | | were observed. Intrathecal contrast: Omnipaque 240, 10 mL Physician(s) present: | | MD Emerald Orantes MD X-ray lumbar myelogram and post contrast CT | | images of the lumbar spine with sagittal and coronal reformations were obtained. | | FINDINGS: X-RAY LUMBAR MYELOGRAM: The thecal sac is patent with no block to contrast. | | No acute fracture. Neurostimulator device in place. CT MYELOGRAM: ALIGNMENT: | | Normal.VERTEBRAE: No fractures . No evidence of epidural collection to suggest | | hemorrhage. L1-2: Unremarkable.L2-3: Mild disc bulge with no significant canal | | stenosis.L3-4: Mild disc bulge with minimal canal stenosis.L4-5: Moderate disc bulge | | with mild canal stenosis and left lateral recess effacement. There is also mild | | bilateral foraminal narrowing.L5-S1: Disc bulge and left paracentral soft tissue, likely | | disc protrusion, with effacement of the left lateral recess. Disc osteophyte complex | | bilaterally produces moderate to severe foraminal narrowing. PARASPINAL SOFT TISSUES: | | Unremarkable. IMPRESSION: 1. Technically successful lumbar puncture .2. Moderate | | degenerative disc disease in the lower lumbar spine as detailed. By my electronic | | signature listed below, I, the attending radiologist, was present for the critical | | portions of the procedure as described in this note. I have personally reviewed the | | images and, if necessary, edited the report. I agree with the report as now presented. | | Final signature: Emerald Patel MD 03/10/2019 9:39 AM Preliminary: Colin Caldera | | 03/10/2019 9:29 AM Dictation initiated: Colin Caldera MD 03/09/2019 3:30 PM | |L1-2: Unremarkable. | |L2-3: Mild disc bulge with no significant canal stenosis. | |L3-4: Mild disc bulge with minimal canal stenosis. | |L4-5: Moderate disc bulge with mild canal stenosis and left lateral recess effacement. Ther e is also mild bilateral foraminal narrowing. | |L5-S1: Disc bulge and left paracentral soft tissue, likely disc protrusion, with effacement of the left lateral recess. Disc osteophyte complex bilaterally produces moderate to severe foraminal narrowing. | | | |PARASPINAL SOFT TISSUES: Unremarkable. | | | |IMPRESSION: | | | |1. Technically successful lumbar puncture . | |2. Moderate degenerative disc disease in the lower lumbar spine as detailed. | | | |By my electronic signature listed below, I, the attending radiologist, was present for the critical portions of the procedure as described in this note. | | | |I have personally reviewed the images and, if necessary, edited the report. I agree with th e report as now presented. | | | |Final signature: Emerald Patel MD 03/10/2019 9:39 AM | |Preliminary: Colin Caldera MD 03/10/2019 9:29 AM | |Dictation initiated: Colin Caldera MD 03/09/2019 3:30 PM | + + + +---------+ + + | Performing | Address | City/State/Zipcode | Phone Number | | Organization | | | | + +---------+ + + | [facility] | | | | | VOICE RECOGNITION 2 | | | | + +---------+ + + X-RAY MYELOGRAM LUMBOSACRAL W/INJECTION (03/09/2019 2:15 PM PDT) + + | Specimen | + + | | + + + + + | Narrative | Performed At | + + + | PROCEDURE: LUMBAR X-RAY AND CT MYELOGRAM HISTORY: severe back | [facility] | | pain and weakness following fall (pacer and spinal cord stimulator) | RADIOLOGY VOICE | | COMPARISON: External spine CT dated 03/08/2019 TECHNIQUE: The | RECOGNITION 2 | | patient consented after PARQ discussion. A team pause was performed. | | | Myelography was performed under fluoroscopic guidance using standard | | | aseptic technique. 5 mL of 1% preservative free lidocaine was used | | | for local anesthesia. Lumbar puncture was performed at L3-4 with a | | | 20 gauge 5 inch spinal needle. Multiple fluoroscopic views of the | | | lumbar spine were then obtained. No immediate complications of the | | | procedure were observed. Intrathecal contrast: Omnipaque 240, | | | 10 mL Physician(s) present: MD Emerald Orantes V | | | MD Jorge X-ray lumbar myelogram and post contrast CT images | | | of the lumbar spine with sagittal and coronal reformations were | | | obtained. FINDINGS: X-RAY LUMBAR MYELOGRAM: The thecal sac | | | is patent with no block to contrast. No acute fracture. | | | Neurostimulator device in place. CT MYELOGRAM: ALIGNMENT: | | | Normal. VERTEBRAE: No fractures . No evidence of epidural | | | collection to suggest hemorrhage. L1-2: Unremarkable. L2-3: Mild | | | disc bulge with no significant canal stenosis. L3-4: Mild disc bulge | | | with minimal canal stenosis. L4-5: Moderate disc bulge with mild | | | canal stenosis and left lateral recess effacement. There is also mild | | | bilateral foraminal narrowing. L5-S1: Disc bulge and left paracentral | | | soft tissue, likely disc protrusion, with effacement of the left | | | lateral recess. Disc osteophyte complex bilaterally produces moderate | | | to severe foraminal narrowing. PARASPINAL SOFT TISSUES: | | | Unremarkable. IMPRESSION: 1. Technically successful lumbar | | | puncture . 2. Moderate degenerative disc disease in the lower lumbar | | | spine as detailed. By my electronic signature listed below, I, the | | | attending radiologist, was present for the critical portions of the | | | procedure as described in this note. I have personally reviewed | | | the images and, if necessary, edited the report. I agree with the | | | report as now presented. Final signature: Emerald Patel MD | | | 03/10/2019 9:39 AM Preliminary: Colin Caldera MD 03/10/2019 | | | 9:29 AM Dictation initiated: Colin Caldera MD 03/09/2019 3:30 PM | | + + + + + | Procedure Note | + + | Service Account, Radiant Res In Interface - 03/10/2019 9:40 AM PDT PROCEDURE: | | LUMBAR X-RAY AND CT MYELOGRAM HISTORY: severe back pain and weakness following fall | | (pacer and spinal cord stimulator) COMPARISON: External spine CT dated 03/08/2019 | | TECHNIQUE: The patient consented after PARQ discussion. A team pause was performed. | | Myelography was performed under fluoroscopic guidance using standard aseptic technique. | | 5 mL of 1% preservative free lidocaine was used for local anesthesia. Lumbar puncture | | was performed at L3-4 with a 20 gauge 5 inch spinal needle. Multiple fluoroscopic views | | of the lumbar spine were then obtained. No immediate complications of the procedure | | were observed. Intrathecal contrast: Omnipaque 240, 10 mL Physician(s) present: | | MD Emerald Orantes MD X-ray lumbar myelogram and post contrast CT | | images of the lumbar spine with sagittal and coronal reformations were obtained. | | FINDINGS: X-RAY LUMBAR MYELOGRAM: The thecal sac is patent with no block to contrast. | | No acute fracture. Neurostimulator device in place. CT MYELOGRAM: ALIGNMENT: | | Normal.VERTEBRAE: No fractures . No evidence of epidural collection to suggest | | hemorrhage. L1-2: Unremarkable.L2-3: Mild disc bulge with no significant canal | | stenosis.L3-4: Mild disc bulge with minimal canal stenosis.L4-5: Moderate disc bulge | | with mild canal stenosis and left lateral recess effacement. There is also mild | | bilateral foraminal narrowing.L5-S1: Disc bulge and left paracentral soft tissue, likely | | disc protrusion, with effacement of the left lateral recess. Disc osteophyte complex | | bilaterally produces moderate to severe foraminal narrowing. PARASPINAL SOFT TISSUES: | | Unremarkable. IMPRESSION: 1. Technically successful lumbar puncture .2. Moderate | | degenerative disc disease in the lower lumbar spine as detailed. By my electronic | | signature listed below, I, the attending radiologist, was present for the critical | | portions of the procedure as described in this note. I have personally reviewed the | | images and, if necessary, edited the report. I agree with the report as now presented. | | Final signature: Emerald Patel MD 03/10/2019 9:39 AM Preliminary: Colin Caldera | | 03/10/2019 9:29 AM Dictation initiated: Colin Caldera MD 03/09/2019 3:30 PM | |L1-2: Unremarkable. | |L2-3: Mild disc bulge with no significant canal stenosis. | |L3-4: Mild disc bulge with minimal canal stenosis. | |L4-5: Moderate disc bulge with mild canal stenosis and left lateral recess effacement. Ther e is also mild bilateral foraminal narrowing. | |L5-S1: Disc bulge and left paracentral soft tissue, likely disc protrusion, with effacement of the left lateral recess. Disc osteophyte complex bilaterally produces moderate to severe foraminal narrowing. | | | |PARASPINAL SOFT TISSUES: Unremarkable. | | | |IMPRESSION: | | | |1. Technically successful lumbar puncture . | |2. Moderate degenerative disc disease in the lower lumbar spine as detailed. | | | |By my electronic signature listed below, I, the attending radiologist, was present for the critical portions of the procedure as described in this note. | | | |I have personally reviewed the images and, if necessary, edited the report. I agree with th e report as now presented. | | | |Final signature: Emerald Patel MD 03/10/2019 9:39 AM | |Preliminary: Colin Caldera MD 03/10/2019 9:29 AM | |Dictation initiated: Colin Caldera MD 03/09/2019 3:30 PM | + + + +---------+ + + | Performing | Address | City/State/Zipcode | Phone Number | | Organization | | | | + +---------+ + + | [facility] | | | | | VOICE RECOGNITION 2 | | | | + +---------+ + + INR (03/09/2019 10:12 AM PDT) + +-------+ + + + | Component | Value | Ref Range | Performed | Pathologist | | | | | At | Signature | + +-------+ + + + | INR | 1.04 | 0.90 - 1.20 INR | [facility] | | | | | | [facility] | | | | | | SERVICES, | | | | | | CORE | | + +-------+ + + + + + | Specimen | + + | Blood - Blood | | (substance) | + + + + + | Narrative | Performed At | + + + | INR Therapeutic ranges for full anticoagulation: INR for Venous | [facility] | | Thromboembolism (2.0 - 3.0) INR INR for most | LABORATORY | | patients with mech. valves (2.5 - 3.5) INR | [facility] | + + + + + + + + | Performing | Address | City/State/Zipcode | Phone Number | | Organization | | | | + + + + + | [facility] | [address] | [place] [address] | | | SERVICESVINCENT | [address] | | | + + + + + X-RAY PORTABLE ABDOMEN 1 VIEW (03/09/2019 1:59 AM PDT) + + | Specimen | + + | | + + + + + | Narrative | Performed At | + + + | EXAM: [place] ABDOMEN 1 VIEW SUPINE History: constipation | [facility] | | Comparison: None available. FINDINGS/IMPRESSION: Mild stool | RADIOLOGY VOICE | | burden and gas seen throughout a normal appearing colon and rectum | RECOGNITION 2 | | without evidence for obstruction. Lower lumbar disc space disease | | | better characterized on prior CT. I have personally reviewed the | | | images and, if necessary, edited the report. I agree with the report | | | as now presented. Final signature: Ce Pisano MD | | | 03/09/2019 12:00 PM Preliminary: Sagar Roche MD 03/09/2019 11:32 | | | AM Dictation initiated: Sagar Roche MD 03/09/2019 9:45 AM | | + + + + + | Procedure Note | + + | Service Account, Radiant Res In Interface - 03/09/2019 12:01 PM PDT EXAM: [place] ABDOMEN | | 1 VIEW SUPINE History: constipation Comparison: None available. FINDINGS/IMPRESSION: | | Mild stool burden and gas seen throughout a normal appearing colon and rectum without | | evidence for obstruction. Lower lumbar disc space disease better characterized on prior | | CT. I have personally reviewed the images and, if necessary, edited the report. I agree | | with the report as now presented. Final signature: Ce Pisano MD 03/09/2019 | | 12:00 PM Preliminary: Sagar Roche MD 03/09/2019 11:32 AM Dictation initiated: Sagar | | MD Kaley 03/09/2019 9:45 AM | |Mild stool burden and gas seen throughout a normal appearing colon and rectum without evide nce for obstruction. | | | |Lower lumbar disc space disease better characterized on prior CT. | | | |I have personally reviewed the images and, if necessary, edited the report. I agree with e report as now presented. | | | |Final signature: Ce Pisano MD 03/09/2019 12:00 PM | |Preliminary: Sagar Roche MD 03/09/2019 11:32 AM | |Dictation initiated: Sagra Roche MD 03/09/2019 9:45 AM | + + + +---------+ + + | Performing | Address | City/State/Zipcode | Phone Number | | Organization | | | | + +---------+ + + | [facility] | | | | | VOICE RECOGNITION 2 | | | | + +---------+ + + FREE T4 (03/09/2019 1:44 AM PDT) + +-------+ + + + | Component | Value | Ref Range | Performed | Pathologist | | | | | At | Signature | + +-------+ + + + | FREE T4 | 1.2 | 0.6 - 1.2 ng/dL | [facility] | | | | | | LABORATORY | | | | | | SERVICES, | | | | | | CORE | | + +-------+ + + + + + | Specimen | + + | Blood - Blood | | (substance) | + + + + + + + | Performing | Address | City/State/Zipcode | Phone Number | | Organization | | | | + + + + + | [facility] | [address] | [place] [address] | | | SERVICES, CORE | [address] | | | + + + + + CBC AND AUTO DIFF (03/09/2019 1:44 AM PDT) + + + + + + | Component | Value | Ref Range | Performed | Pathologist | | | | | At | Signature | + + + + + + | WHITE CELL | 5.16 | 3.50 - 10.80 | [facility] | | | COUNT | | K/cu mm | LABORATORY | | | | | | SERVICES, | | | | | | CORE | | + + + + + + | RED CELL | 4.16 | 4.00 - 5.20 | [facility] | | | COUNT | | M/cu mm | LABORATORY | | | | | | SERVICES, | | | | | | CORE | | + + + + + + | HEMOGLOBIN | 13.1 | 12.0 - 16.0 | [facility] | | | | | g/dL | LABORATORY | | | | | | SERVICES, | | | | | | CORE | | + + + + + + | HEMATOCRIT | 39.0 | 36.0 - 46.0 % | [facility] | | | | | | LABORATORY | | | | | | SERVICES, | | | | | | CORE | | + + + + + + | MCV | 93.8 | 80.0 - 100.0 fL | [facility] | | | | | | LABORATORY | | | | | | SERVICES, | | | | | | CORE | | + + + + + + | MCHC | 33.6 | 32.0 - 36.0 | [facility] | | | | | g/dL | LABORATORY | | | | | | SERVICES, | | | | | | CORE | | + + + + + + | RDW SD | 43.4 | 35.1 - 46.3 fL | [facility] | | | | | | LABORATORY | | | | | | SERVICES, | | | | | | CORE | | + + + + + + | PLATELET | 226 | 150 - 400 K/cu | [facility] | | | COUNT | | mm | LABORATORY | | | | | | SERVICES, | | | | | | CORE | | + + + + + + | MPV | 9.1 (L) | 9.7 - 12.3 fL | [facility] | | | | | | LABORATORY | | | | | | SERVICES, | | | | | | CORE | | + + + + + + | NRBC% | 0.0 | 0.0 - 0.3 % | [facility] | | | | | | LABORATORY | | | | | | SERVICES, | | | | | | CORE | | + + + + + + | NRBC# | 0.00 | 0.00 - 0.02 | [facility] | | | | | K/cu mm | LABORATORY | | | | | | SERVICES, | | | | | | CORE | | + + + + + + | NEUTROPHIL | 81.2 (H) | 50.0 - 70.0 % | [facility] | | | % | | | LABORATORY | | | | | | SERVICES, | | | | | | CORE | | + + + + + + | LYMPHOCYTE | 14.5 (L) | 18.0 - 42.0 % | [facility] | | | % | | | LABORATORY | | | | | | SERVICES, | | | | | | CORE | | + + + + + + | MONOCYTE % | 3.5 | 3.5 - 9.0 % | [facility] | | | | | | LABORATORY | | | | | | SERVICES, | | | | | | CORE | | + + + + + + | EOS % | 0.2 (L) | 1.0 - 3.0 % | [facility] | | | | | | LABORATORY | | | | | | SERVICES, | | | | | | CORE | | + + + + + + | BASO % | 0.4 | 0.0 - 2.0 % | [facility] | | | | | | LABORATORY | | | | | | SERVICES, | | | | | | CORE | | + + + + + + | IG% | 0.2Comment: Increased | 0.0 - 1.0 % | [facility] | | | | immature granulocytes | | LABORATORY | | | | (IG) define a left | | SERVICES, | | | | shift. Immature | | CORE | | | | granulocytes (IG) are an | | | | | | automated count of | | | | | | metamyelocytes, | | | | | | myelocytes and | | | | | | promyelocytes. Bands | | | | | | are not included in the | | | | | | IG count. Bands are | | | | | | included in the | | | | | | neutrophil count. | | | | + + + + + + | NEUTROPHIL | 4.19 | 1.80 - 7.70 | [facility] | | | # | | K/cu mm | LABORATORY | | | | | | SERVICES, | | | | | | CORE | | + + + + + + | LYMPHOCYTE | 0.75 (L) | 1.00 - 4.80 | [facility] | | | # | | K/cu mm | LABORATORY | | | | | | SERVICES, | | | | | | CORE | | + + + + + + | MONOCYTE # | 0.18 | 0.10 - 0.90 | [facility] | | | | | K/cu mm | LABORATORY | | | | | | SERVICES, | | | | | | CORE | | + + + + + + | EOS # | 0.01 | 0.00 - 0.50 | [facility] | | | | | K/cu mm | LABORATORY | | | | | | SERVICES, | | | | | | CORE | | + + + + + + | BASO # | 0.02 | 0.00 - 0.10 | [facility] | | | | | K/cu mm | LABORATORY | | | | | | SERVICES, | | | | | | CORE | | + + + + + + | IG# | 0.01 | 0.00 - 0.10 | [facility] | | | | | K/cu mm | LABORATORY | | | | | | SERVICES, | | | | | | CORE | | + + + + + + + + | Specimen | + + | Blood - Blood | | (substance) | + + + + + | Narrative | Performed At | + + + | Increased immature granulocytes (IG) define a left shift. Immature | [facility] | | granulocytes (IG) are an automated count of metamyelocytes, myelocytes | LABORATORY | | and promyelocytes. Bands are not included in the IG count. Bands are | SERVICES, CORE | | included in the neutrophil count. | | + + + + + + + + | Performing | Address | City/State/Zipcode | Phone Number | | Organization | | | | + + + + + | [facility] | [address] | [place] [address] | | | SERVICES, CORE | [address] | | | + + + + + LAMOTRIGINE, SERUM (03/09/2019 1:44 AM PDT) + + + + + + | Component | Value | Ref Range | Performed | Pathologist | | | | | At | Signature | + + + + + + | LAMOTRIGINE | 2.1 (L)Comment: This | 2.5 - 15.0 | NGO - | | | | assay was developed by | mcg/mL | [facility] | | | [facility] | [facility] and is | | [facility] [place] | | | [place] | performed using | | | | | | LC/MS/MS. This test has | | | | | | not been approved by the | | | | | | FDA. | | | | + + + + + + + + | Specimen | + + | Blood - Blood | | (substance) | + + + + + + + | Performing | Address | City/State/Zipcode | Phone Number | | Organization | | | | + + + + + | [facility] | [address] | [place] [address] | | | [place] | | | | + + + + + MYOSITIS EXTENDED PANEL (03/09/2019 1:44 AM PDT) + + + + + + | Component | Value | Ref Range | Performed | Pathologist | | | | | At | Signature | + + + + + + | SSA 60 (RO) | 0Comment: REFERENCE | 0 - 40 AU/mL | [facility] | | | (AGA) | INTERVAL: SSA-60 (Ro60) | | REG UNIV | | | ANTIBODY, | (AGA) Antibody, IgG | | PTH - INTFC | | | IGG | 29 AU/mL or Less | | | | | | ............. Negative | | | | | | 30 - 40 AU/mL | | | | | | ................ | | | | | | Equivocal 41 AU/mL or | | | | | | Greater .......... | | | | | | Positive | | | | + + + + + + | BENSON/POLO COACH | 1Comment: INTERPRETIVE | 0 - 40 AU/mL | [facility] | | | (AGA) AB, | INFORMATION: Ribonucleic | | REG UNIV | | | IGG | Protein (AGA)Antibody, | | PTH - INTFC | | | | IgG 29 AU/mL or Less | | | | | | ............. Negative | | | | | | 30 - 40 AU/mL | | | | | | ................ | | | | | | Equivocal 41 AU/mL or | | | | | | Greater .......... | | | | | | Positive POLO COACH antibody is | | | | | | seen in 95-100 percent | | | | | | of mixed connective | | | | | | tissue disease and is | | | | | | considered specific for | | | | | | this syndrome if other | | | | | | antibodies are negative; | | | | | | POLO COACH is also present in | | | | | | 20-30 percent of | | | | | | systemic lupus | | | | | | erythematosus and 15-25 | | | | | | percent of progressive | | | | | | systemic sclerosis. POLO COACH | | | | | | antigens also contain | | | | | | epitopes that are | | | | | | immunologically | | | | | | identical to free Benson | | | | | | antigens, therefore, the | | | | | | Benson antibody response | | | | | | must be considered when | | | | | | interpreting POLO COACH | | | | | | results. | | | | + + + + + + | ILDA-1 | 0Comment: INTERPRETIVE | 0 - 40 AU/mL | [facility] | | | (HISTIDYL-T | INFORMATION: Ilda-1 | | REG UNIV | | | RNA | Antibody, IgG 29 | | PTH - INTFC | | | SYNTHETASE) | AU/mL or | | | | | AB, IGG | less.........Negative | | | | | | 30-40 | | | | | | AU/mL..............Equiv | | | | | | ocal 41 AU/mL or | | | | | | greater......Positive | | | | + + + + + + | NJ-2 | Negative | Negative | [facility] | | | (NUCLEAR | | | REG UNIV | | | HELICASE | | | PTH - INTFC | | | PROTEIN) | | | | | | ANTIBODY | | | | | + + + + + + | PL-7 | Negative | Negative | [facility] | | | (THREONYL-T | | | REG UNIV | | | RNA | | | PTH - INTFC | | | SYNTHETASE) | | | | | | ANTIBODY | | | | | + + + + + + | PL-12 | Negative | Negative | [facility] | | | (ALANYL-TRN | | | REG UNIV | | | A | | | PTH - INTFC | | | SYNTHETASE) | | | | | | ANTIBODY | | | | | + + + + + + | P155/140 | Negative | Negative | [facility] | | | (TIF1-GAMMA | | | REG UNIV | | | ) ANTIBODY | | | PTH - INTFC | | + + + + + + | EJ | Negative | Negative | [facility] | | | (GLYCYL-TRN | | | REG UNIV | | | A | | | PTH - INTFC | | | SYNTHETASE) | | | | | | ANTIBODY | | | | | + + + + + + | KU ANTIBODY | Negative | Negative | [facility] | | | | | | REG UNIV | | | | | | PTH - INTFC | | + + + + + + | U2 SN | Negative | Negative | [facility] | | | (SMALL | | | REG UNIV | | | NUCLEAR) | | | PTH - INTFC | | | POLO COACH | | | | | | ANTIBODY | | | | | + + + + + + | SRP (SIGNAL | Negative | Negative | [facility] | | | | | | REG UNIV | | | RECOGNITION | | | PTH - INTFC | | | PARTICLE) | | | | | | AB | | | | | + + + + + + | OJ | Negative | Negative | [facility] | | | (ISOLEUCYL- | | | REG UNIV | | | TRNA | | | PTH - INTFC | | | SYNTHETASE) | | | | | | ANTIBODY | | | | | + + + + + + | SAE1 (SUMO | NegativeComment: SAE1 | | [facility] | | | ACTIVATING | antibody negative by | | REG UNIV | | | ENZYME) | line immunoassay. No | | PTH - INTFC | | | ANTIBODY | bands corresponding to | | | | | | 90 and 40 Kda observed | | | | | | by immunoprecipitation. | | | | + + + + + + | MDA5 | NegativeComment: MDA-5 | | [facility] | | | (CADM-140) | antibody negative by | | REG UNIV | | | ANTIBODY | line immunoassay. No | | PTH - INTFC | | | | band corresponding to | | | | | | 140 KDa observed by | | | | | | immunoprecipitation. | | | | + + + + + + | NXP-2 | NegativeComment: NXP-2 | | [facility] | | | (NUCLEAR | antibody negative by | | REG UNIV | | | MATRIX | line immunoassay. No | | PTH - INTFC | | | PROTEIN-2) | band corresponding to | | | | | ANTIBODY | 140 KDa observed by | | | | | | immunoprecipitation. | | | | + + + + + + | TIF1-GAMMA | NegativeComment: TIF-1 | | [facility] | | | ANTIBODY | gamma antibody negative | | REG UNIV | | | | by line immunoassay. No | | PTH - INTFC | | | | band corresponding to | | | | | | 155 KDa observed by | | | | | | immunoprecipitation. | | | | + + + + + + | FIBRILLARIA | NegativeComment: | Negative | [facility] | | | N (U3 POLO COACH) | Interpretive | | REG UNIV | | | AB, IGG | Information: Fibrillarin | | PTH - INTFC | | | | (U3 POLO COACH) Antibody, IgG | | | | | | The presence of | | | | | | fibrillarin (U3-POLO COACH) IgG | | | | | | antibodies in | | | | | | association with an SHLOMO | | | | | | IFA nucleolar pattern is | | | | | | suggestive of systemic | | | | | | sclerosis (SSc). In SSc, | | | | | | these antibodies are | | | | | | associated with distinct | | | | | | clinical features, such | | | | | | as younger age at | | | | | | disease onset, frequent | | | | | | internal organ | | | | | | involvement (pulmonary | | | | | | hypertension, myositis | | | | | | and renal disease). | | | | | | Fibrillarin antibodies | | | | | | are detected more | | | | | | frequently in | | | | | | [place] patients with | | | | | | SSc compared to other | | | | | | ethnic groups. Strong | | | | | | correlation with SHLOMO IFA | | | | | | results is recommended. | | | | | | In a multi-ethnic | | | | | | cohort of SSc patients | | | | | | (n=98), U3-POLO COACH | | | | | | antibodies detected by | | | | | | immunoblot had an | | | | | | agreement of 98.9 | | | | | | percent with the gold | | | | | | standard | | | | | | immunoprecipitation (IP) | | | | | | assay. Approximately 71 | | | | | | percent (5/7) of the | | | | | | borderline U3-POLO COACH | | | | | | results with SHLOMO | | | | | | nucleolar pattern in | | | | | | this cohort were IP | | | | | | negative. Test developed | | | | | | and characteristics | | | | | | determined by [facility] | | | | | | [facility]. See | | | | | | Compliance Statement D: | | | | | | [email or web address] | | | | | | by [facility],[address] | | | | | [address], [facility],[place] | | | | | | [id number] | | | | | | [phone]. | | | | | | com, Srinath Boone MD, | | | | | | Lab. Director | | | | + + + + + + | PM/SCL 100 | NegativeComment: | Negative | [facility] | | | ANTIBODY, | INTERPRETIVE | | REG UNIV | | | IGG | INFORMATION: PM/Scl-100 | | PTH - INTFC | | | | Antibody, IgG by | | | | | | | | | | | | ImmunoblotThe | | | | | | presence of PM/Scl-100 | | | | | | IgG antibody along with | | | | | | a positive SHLOMO IFA | | | | | | nucleolar pattern is | | | | | | associated with | | | | | | connective tissue | | | | | | diseases such as | | | | | | polymyositis (PM), | | | | | | dermatomyositis (DM), | | | | | | systemic sclerosis | | | | | | (SSc), and | | | | | | polymyositis/systemic | | | | | | sclerosis overlap | | | | | | syndrome. The clinical | | | | | | relevance of PM/Scl-100 | | | | | | IgG antibody with a | | | | | | negative SHLOMO IFA | | | | | | nucleolar pattern is | | | | | | unknown. PM/Scl-100 is | | | | | | the main target epitope | | | | | | of the PM/Scl complex, | | | | | | although antibodies to | | | | | | other targets not | | | | | | detected by this assay | | | | | | may occur. Test | | | | | | developed and | | | | | | characteristics | | | | | | determined by [facility] | | | | | | [facility]. See | | | | | | Compliance Statement D: | | | | | | [email or web address] | | | | + + + + + + | MYOSITIS | See NoteComment: | | [facility] | | | PANEL | INTERPRETIVE | | REG UNIV | | | INTERPRETIV | INFORMATION: Myositis | | PTH - INTFC | | | E DATA | Extended Panel If | | | | | | present, | | | | | | myositis-specific | | | | | | antibodies (MSA) are | | | | | | specific for myositis, | | | | | | and may be useful in | | | | | | establishing diagnosis | | | | | | as well as prognosis. | | | | | | MSAs are generally | | | | | | regarded as mutually | | | | | | exclusive with rare | | | | | | exceptions; the | | | | | | occurrence of two or | | | | | | more MSAs should be | | | | | | carefully evaluated in | | | | | | the context of patient's | | | | | | clinical presentation. | | | | | | Myositis-associated | | | | | | antibodies (MAA) may be | | | | | | found in patients with | | | | | | CTD including overlap | | | | | | syndromes, and are | | | | | | generally not specific | | | | | | for myositis. The | | | | | | following table will | | | | | | help in identifying the | | | | | | association of any | | | | | | antibodies found as | | | | | | either MSAs or Niyah. | | | | | | Antibody Specificity . . | | | | | | . . . . . . . . . . MSA | | | | | | . . . . MAASSA 52 (Ro) | | | | | | (AGA) Antibody IgG . . . | | | | | | . . . . . . . . . . | | | | | | XSSA 60 (Ro) (AGA) | | | | | | Antibody IgG . . . . . . | | | | | | . . . . . . . | | | | | | XRibonucleic Protein | | | | | | (U1) (AGA) Ab, IgG . . . | | | | | | . . . . . . XJo-1 | | | | | | (histidyl-tRNA | | | | | | synthetase) Ab, IgG . | | | | | | . XPL-12 (alanyl-tRNA | | | | | | synthetase) Antibody . | | | | | | . XPL-7 | | | | | | (threonyl-tRNA | | | | | | synthetase) Antibody . . | | | | | | XEJ (glycyl-tRNA | | | | | | synthetase) Antibody . . | | | | | | . . XOJ | | | | | | (isoleucyl-tRNA | | | | | | synthetase) Antibody . | | | | | | . XSRP (Signal | | | | | | Recognition Particle) Ab | | | | | | . . . . XKu Antibody | | | | | | . . . . . . . . . . . | | | | | | . . . . . . . . . . . | | | | | | XPM/SCL 100 Antibody, | | | | | | IgG . . . . . . . . . . | | | | | | . . . . . . XU2 sn | | | | | | (small nuclear) POLO COACH | | | | | | Antibody . . . . . . . . | | | | | | . . . XFibrillarin | | | | | | (U3 POLO COACH) Ab, IgG . . . . | | | | | | . . . . . . . . . . | | | | | | XMi-2 (nuclear | | | | | | helicase protein) | | | | | | Antibody . . XP155/140 | | | | | | Antibody . . . . . . | | | | | | . . . . . . . XTIF-1 | | | | | | gamma (155 kDa) Antibody | | | | | | . . . . . . XSAE1 | | | | | | (SUMO activating enzyme) | | | | | | Antibody . . . XMDA5 | | | | | | (CADM-140) Antibody . . | | | | | | . . . . . . . . XNXP-2 | | | | | | (Nuclear matrix | | | | | | proten-2) Ab . . . . . | | | | | | X Test developed and | | | | | | characteristics | | | | | | determined by [facility] | | | | | | [facility]. See | | | | | | Compliance Statement D: | | | | | | [email or web address]/CS | | | | + + + + + + | SSA 52 (RO) | 0Comment: INTERPRETIVE | 0 - 40 AU/mL | [facility] | | | AB, IGG | INFORMATION: SSA-52 | | REG UNIV | | | | (Ro52) (AGA) Antibody, | | PTH - INTFC | | | | IgG 29 AU/mL or Less | | | | | | ............. Negative | | | | | | 30 - 40 AU/mL | | | | | | ................ | | | | | | Equivocal 41 AU/mL or | | | | | | Greater .......... | | | | | | Positive SSA-52 (Ro52) | | | | | | and/or SSA-60 (Ro60) | | | | | | antibodies are | | | | | | associated with a | | | | | | diagnosis of Sjogren | | | | | | syndrome, systemic lupus | | | | | | erythematosus (SLE), | | | | | | and systemic sclerosis. | | | | | | SSA-52 antibody overlaps | | | | | | significantly with the | | | | | | major SSc-related | | | | | | antibodies. SSA-52 | | | | | | (Ro52) antibody occurs | | | | | | frequently in patients | | | | | | with inflammatory | | | | | | myopathies, often in the | | | | | | presence of | | | | | | interstitial lung | | | | | | disease. | | | | + + + + + + + + | Specimen | + + | Blood - Blood | | (substance) | + + + + + + + | Performing | Address | City/State/Zipcode | Phone Number | | Organization | | | | + + + + + | [facility] | [address] | [place], [place] | | | UNIV PTH - INT[facility] | | [address] | | + + + + + ANTI NEUTROPHIL CYTOPLASMIC AB SCN, SERUM (03/09/2019 1:44 AM PDT) + + + + + + | Component | Value | Ref Range | Performed | Pathologist | | | | | At | Signature | + + + + + + | ANCA | <1:20Comment: The ANCA | <1:20 | [facility] | | | -NEUTROPHIL | IFA is <1:20; therefore, | | REG UNIV | | | | no further testing will | | PTH - INTFC | | | CYTOPLASMIC | be | | | | | IGG, SERUM | performed.INTERPRETIVE | | | | | | INFORMATION: | | | | | | Anti-Neutrophil Cyto Ab, | | | | | | IgG Neutrophil | | | | | | Cytoplasmic Antibodies | | | | | | (C-ANCA = granular | | | | | | cytoplasmic staining, | | | | | | P-ANCA = perinuclear | | | | | | staining) are found in | | | | | | the serum of over 90 | | | | | | percent of patients with | | | | | | certain necrotizing | | | | | | systemic vasculitides, | | | | | | and usually in less than | | | | | | 5 percent of patients | | | | | | with collagen vascular | | | | | | disease or | | | | | | arthritis.Performed by | | | | | | [address] | | | | | [place], [facility] [place],[place] | | | | | | [address] | | | | | | [phone]. | | | | | | [facility]ep[facility] hospitalsSrinath MD, | | | | | | Lab. Director | | | | + + + + + + + + | Specimen | + + | Blood - Blood | | (substance) | + + + + + + + | Performing | Address | City/State/Zipcode | Phone Number | | Organization | | | | + + + + + | [facility] | [address] | [place], [place] | | | UNIV PTH - INTFC | | [address] | | + + + + + SHLOMO BY CHASTITY W/REFLEX TO IFA PATTERN & AB ID WHEN INDICATED (03/09/2019 1:44 AM PDT) + + + + + + | Component | Value | Ref Range | Performed | Pathologist | | | | | At | Signature | + + + + + + | ANTI-NUCLEA | None DetectedComment: If | None Detected | [facility] | | | R AB(SHLOMO), | suspicion of connective | | REG UNIV | | | IGG BY | tissue disease is | | PTH - INTFC | | | CHASTITY | strong and SHLOMO EIA is | | | | | | negative, consider | | | | | | testing for SHLOMO by IFA | | | | | | ([id number]). No | | | | | | antibodies to | | | | | | Anti-Nuclear Antibodies | | | | | | (SHLOMO) detected. The | | | | | | Extractable Nuclear | | | | | | Antigen Antibodies (POLO COACH, | | | | | | Benson, SSA 52, SSA 60, | | | | | | Scleroderma, Ilda-1 and | | | | | | SSB) and Double Stranded | | | | | | DNA (dsDNA) Antibody, | | | | | | IgG will not be | | | | | | performed.INTERPRETIVE | | | | | | INFORMATION: | | | | | | Anti-Nuclear Antibodies | | | | | | (SHLOMO), IgG by CHASTITY | | | | | | Anti-Nuclear Antibodies | | | | | | (SHLOMO), IgG by CHASTITY: SHLOMO | | | | | | specimens are screened | | | | | | using enzyme-linked | | | | | | immunosorbent assay | | | | | | (CHASTITY) methodology. All | | | | | | CHASTITY results reported | | | | | | as Detected are further | | | | | | tested by indirect | | | | | | fluorescent assay (IFA) | | | | | | using HEp-2 substrate | | | | | | with an IgG-specific | | | | | | conjugate. The SHLOMO CHASTITY | | | | | | screen is designed to | | | | | | detect antibodies | | | | | | against dsDNA, histone, | | | | | | SS-A (Ro), SS-B (La), | | | | | | Benson, snRNP/Sm, Scl-70, | | | | | | Ilda-1, centromere, and | | | | | | an extract of lysed | | | | | | HEp-2 cells. SHLOMO CHASTITY | | | | | | assays have been | | | | | | reported to have lower | | | | | | sensitivities than SHLOMO | | | | | | IFA for systemic | | | | | | autoimmune rheumatic | | | | | | diseases (SARD). | | | | | | Negative results do not | | | | | | necessarily rule out | | | | | | SARD.Performed by [facility] | | | | | | [facility],[address] | | | | | | [place] [address] | | | | | | [phone]. | | | | | | Srinath son MD, | | | | | | Lab. Director | | | | + + + + + + + + | Specimen | + + | Blood - Blood | | (substance) | + + + + + + + | Performing | Address | City/State/Zipcode | Phone Number | | Organization | | | | + + + + + | [facility] | [address] | [place], [place] | | | UNIV PTH - INTFC | | [address] | | + + + + + C-REACTIVE PROTEIN (03/09/2019 1:44 AM PDT) + +-------+ + + + | Component | Value | Ref Range | Performed | Pathologist | | | | | At | Signature | + +-------+ + + + | C-REACTIVE | <2.9 | <10.0 mg/L | [facility] | | | PROTEIN | | | LABORATORY | | | | | | SERVICES, | | | | | | CORE | | + +-------+ + + + + + | Specimen | + + | Blood - Blood | | (substance) | + + + + + + + | Performing | Address | City/State/Zipcode | Phone Number | | Organization | | | | + + + + + | [facility] | [address] | [place] [address] | | | SERVICES, CORE | [address] | | | + + + + + SEDIMENTATION RATE (03/09/2019 1:44 AM PDT) + +-------+ + + + | Component | Value | Ref Range | Performed | Pathologist | | | | | At | Signature | + +-------+ + + + | SEDIMENTATI | 11 | 0 - 30 mm/hr | [facility] | | | ON RATE | | | LABORATORY | | | | | | SERVICES, | | | | | | CORE | | + +-------+ + + + + + | Specimen | + + | Blood - Blood | | (substance) | + + + + + | Narrative | Performed At | + + + | Conditions such as cold agglutinins, anemia(including sickle cell | [facility] | | disease), multiple myeloma, hemolysis, icterus or lipemia may affect | LABORATORY | | sedimentation rate. | [facility] | + + + + + + + + | Performing | Address | City/State/Zipcode | Phone Number | | Organization | | | | + + + + + | [facility] | [address] | [place] [address] | | | [facility] | [address] | | | + + + + + TSH W/REFLEX TO FREE T4(IF ABNORMAL) (03/09/2019 1:44 AM PDT) + + + + + + | Component | Value | Ref Range | Performed | Pathologist | | | | | At | Signature | + + + + + + | TSH | 0.33 (L) | 0.46 - 5.56 | [facility] | | | | | mIU/L | LABORATORY | | | | | | SERVICES, | | | | | | CORE | | + + + + + + + + | Specimen | + + | Blood - Blood | | (substance) | + + + + + | Narrative | Performed At | + + + | TSH reference ranges are influenced by a variety of environmental | [facility] | | influences, age, gender and ethnicity. The supplied reference limits | LABORATORY | | are based on published values utilizing a similar TSH assay, and | SERVICES, CORE | | should be interpreted with caution. | | + + + + + + + + | Performing | Address | City/State/Zipcode | Phone Number | | Organization | | | | + + + + + | [facility] | [address] | [place] [address] | | | [facility] | [address] | | | + + + + + COMPLETE METABOLIC SET (NA,K,CL,CO2,BUN,CREAT,GLUC,CA,AST,ALT,BILI TOTAL,ALK PHOS,ALB,PROT TOTAL) (03/09/2019 1:44 AM PDT) + +---------+ + + + | Component | Value | Ref Range | Performed | Pathologist | | | | | At | Signature | + +---------+ + + + | GLUCOSE, | 122 (H) | 70 - 99 mg/dL | [facility] | | | PLASMA | | | LABORATORY | | | (LAB) | | | SERVICES, | | | | | | CORE | | + +---------+ + + + | BUN, PLASMA | 16 | 6 - 20 mg/dL | [facility] | | | (LAB) | | | LABORATORY | | | | | | SERVICES, | | | | | | CORE | | + +---------+ + + + | CREATININE | 0.82 | 0.60 - 1.10 | [facility] | | | PLASMA | | mg/dL | LABORATORY | | | (LAB) | | | SERVICES, | | | | | | CORE | | + +---------+ + + + | EGFR | >60 | >60 mL/min | [facility] | | | - | | | LABORATORY | | | RWANDAN | | | SERVICES, | | | | | | CORE | | + +---------+ + + + | EGFR NON | >60 | >60 mL/min | [facility] | | | -BERNARDINO | | | LABORATORY | | | RICAN | | | SERVICES, | | | | | | CORE | | + +---------+ + + + | SODIUM, | 140 | 136 - 145 | [facility] | | | PLASMA | | mmol/L | LABORATORY | | | (LAB) | | | SERVICES, | | | | | | CORE | | + +---------+ + + + | POTASSIUM, | 4.1 | 3.4 - 5.0 | [facility] | | | PLASMA | | mmol/L | LABORATORY | | | (LAB) | | | SERVICES, | | | | | | CORE | | + +---------+ + + + | CHLORIDE, | 111 (H) | 97 - 108 mmol/L | [facility] | | | PLASMA | | | LABORATORY | | | (LAB) | | | SERVICES, | | | | | | CORE | | + +---------+ + + + | TOTAL CO2, | 24 | 21 - 32 mmol/L | [facility] | | | PLASMA | | | LABORATORY | | | (LAB) | | | SERVICES, | | | | | | CORE | | + +---------+ + + + | CALCIUM, | 9.2 | 8.6 - 10.2 | [facility] | | | PLASMA | | mg/dL | LABORATORY | | | (LAB) | | | SERVICES, | | | | | | CORE | | + +---------+ + + + | CALCIUM(ALB | 9.7 | 8.6 - 10.2 | [facility] | | | CORRECTED) | | mg/dL | LABORATORY | | | | | | SERVICES, | | | | | | CORE | | + +---------+ + + + | BILIRUBIN | 0.4 | 0.3 - 1.2 mg/dL | [facility] | | | TOTAL | | | LABORATORY | | | | | | SERVICES, | | | | | | CORE | | + +---------+ + + + | TOTAL | 6.7 | 6.4 - 8.2 g/dL | [facility] | | | PROTEIN, | | | LABORATORY | | | PLASMA | | | SERVICES, | | | (LAB) | | | CORE | | + +---------+ + + + | ALBUMIN, | 3.4 (L) | 3.5 - 4.7 g/dL | [facility] | | | PLASMA | | | LABORATORY | | | (LAB) | | | SERVICES, | | | | | | CORE | | + +---------+ + + + | ALK PHOS | 70 | 42 - 98 U/L | [facility] | | | | | | LABORATORY | | | | | | SERVICES, | | | | | | CORE | | + +---------+ + + + | AST(SGOT) | 14 | <=41 U/L | [facility] | | | | | | LABORATORY | | | | | | SERVICES, | | | | | | CORE | | + +---------+ + + + | ALT (SGPT) | 20 | <=60 U/L | [facility] | | | | | | LABORATORY | | | | | | SERVICES, | | | | | | CORE | | + +---------+ + + + | ANION GAP | 5 | 4 - 11 mmol/L | [facility] | | | | | | LABORATORY | | | | | | SERVICES, | | | | | | CORE | | + +---------+ + + + | ANION | 6 | 4 - 11 mmol/L | [facility] | | | GAP(ALB | | | LABORATORY | | | CORRECTED) | | | SERVICES, | | | | | | CORE | | + +---------+ + + + | POTASSIUM | No Hemo | | [facility] | | | CMNT | | | LABORATORY | | | | | | SERVICES, | | | | | | CORE | | + +---------+ + + + | BILI T CMNT | No Hemo | | [facility] | | | | | | LABORATORY | | | | | | SERVICES, | | | | | | CORE | | + +---------+ + + + | AST CMNT | No Hemo | | [facility] | | | | | | LABORATORY | | | | | | SERVICES, | | | | | | CORE | | + +---------+ + + + + + | Specimen | + + | Blood - Blood | | (substance) | + + + + + | Narrative | Performed At | + + + | GFR is estimated using the MDRD equation recommended by the National | [facility] | | Kidney Disease Education Program. Estimated GFR Interpretive | LABORATORY | | Information: <60 mL/min/1.73 sq m Chronic Kidney | SERVICES, CORE | | Disease <15 mL/min/1.73 sq m Kidney Failure | | | Estimated GFR greater than 60 mL/min/1.73 sq m is of limited clinical | | | value. The MDRD equation is not valid in the following situations: - | | | Patients under 18 years of age - Severe malnutrition or obesity - | | | Vegetarian diet - Rapidly changing kidney function - Amputees, | | | paraplegics, or other muscle-wasting diseses | | + + + + + + + + | Performing | Address | City/State/Zipcode | Phone Number | | Organization | | | | + + + + + | [facility] | [address] | [place] [address] | | | SERVICES, CORE | [address] | | | + + + + + CK, PLASMA (03/09/2019 1:44 AM PDT) + +-------+ + + + | Component | Value | Ref Range | Performed | Pathologist | | | | | At | Signature | + +-------+ + + + | CK | 138 | 38 - 234 U/L | [facility] | | | | | | LABORATORY | | | | | | SERVICES, | | | | | | CORE | | + +-------+ + + + + + | Specimen | + + | Blood - Blood | | (substance) | + + + + + + + | Performing | Address | City/State/Zipcode | Phone Number | | Organization | | | | + + + + + | [facility] | [address] | [place] [address] | | | SERVICES, CORE | [address] | | | + + + + + 12 LEAD ECG (03/09/2019 1:03 AM PDT) + + + + + + | Component | Value | Ref Range | Performed | Pathologist | | | | | At | Signature | + + + + + + | VENTRICULAR | 60 | bpm | [facility] | | | RATE | | | OF | | | | | | CARDIOLOGY | | + + + + + + | ATRIAL RATE | 60 | ms | [facility] | | | | | | OF | | | | | | CARDIOLOGY | | + + + + + + | P-R | 151 | ms | [facility] | | | INTERVAL | | | OF | | | | | | CARDIOLOGY | | + + + + + + | P AXIS | | deg | [facility] | | | | | | OF | | | | | | CARDIOLOGY | | + + + + + + | QRS | 106 | ms | [facility] | | | DURATION | | | OF | | | | | | CARDIOLOGY | | + + + + + + | QT | 438 | ms | [facility] | | | | | | OF | | | | | | CARDIOLOGY | | + + + + + + | QTCB | 438 | ms | [facility] | | | | | | OF | | | | | | CARDIOLOGY | | + + + + + + | R AXIS | 28 | deg | [facility] | | | | | | OF | | | | | | CARDIOLOGY | | + + + + + + | T AXIS | 30 | deg | [facility] | | | | | | OF | | | | | | CARDIOLOGY | | + + + + + + | ECG | Atrial-paced complexes- | | [facility] | | | IMPRESSION | ABNORMAL ECG - | | OF | | | | | | CARDIOLOGY | | + + + + + + | ECG | Electronically signed | | [facility] | | | IMPRESSION | by: ALEXYS FRANK | | OF | | | | 03-10-2019 20:38:06 | | CARDIOLOGY | | + + + + + + + + | Specimen | + + | | + + + + + | Narrative | Performed At | + + + | | | + + + + + + + + | Performing | Address | City/State/Zipcode | Phone Number | | Organization | | | | + + + + + | [facility] | [address] | [place], [place] | | | CARDIOLOGY | [address] | [address] | | + + + + + documented in this encounter Visit Diagnoses + + | Diagnosis | + + | Lumbar back pain with radiculopathy affecting lower extremity - Primary | + + | Urinary incontinence without sensory awareness Incontinence without sensory awareness | + + | Lumbar post-laminectomy syndrome Postlaminectomy syndrome, lumbar region | + + | Schizoaffective disorder, bipolar type (HCC) Schizoaffective disorder, unspecified | | condition | + + | Slow transit constipation | + + | Chronic back pain Backache, unspecified | + + | Urinary frequency | + + | Sick sinus syndrome (HCC) Sinoatrial node dysfunction | + + | Schizoaffective disorder (HCC) Schizoaffective disorder, unspecified condition | + + | Depression Depressive disorder, not elsewhere classified | + + | Bipolar 1 disorder (HCC) Bipolar I disorder, most recent episode (or current) | | unspecified | + + documented in this encounter Administered Medications + +--------+ + +------+------+ | Medication Order | MAR | Action | Dose | Rate | Site | | | Action | Date | | | | + +--------+ + +------+------+ | acetaminophen (TYLENOL) tablet | Given | 03/11/20 | 1,000 mg | | | | 1,000 mg 1,000 mg, oral, THREE | | 19 3:41 | | | | | TIMES DAILY, First dose (after | | PM PDT | | | | | last modification) on Thu03/09/19 | | | | | | | at 0115, Until Discontinued | | | | | | + +--------+ + +------+------+ +-------+ + +---+---+ | Given | 03/11/20 | 1,000 mg | | | | | 19 9:26 | | | | | | AM PDT | | | | +-------+ + +---+---+ | Given | 03/10/20 | 1,000 mg | | | | | 19 8:21 | | | | | | PM PDT | | | | +-------+ + +---+---+ +---+---+ | | | +---+---+ + +-------+ +--------+---+---+ | acyclovir (ZOVIRAX) tablet 400 | Given | 03/11/20 | 400 mg | | | | mg 400 mg, oral, TWICE DAILY, | | 19 9:26 | | | | | First dose on Thu03/09/19 at | | AM PDT | | | | | 0245, Until Discontinued | | | | | | + +-------+ +--------+---+---+ +-------+ +--------+---+---+ | Given | 03/10/20 | 400 mg | | | | | 19 8:21 | | | | | | PM PDT | | | | +-------+ +--------+---+---+ | Given | 03/10/20 | 400 mg | | | | | 19 8:16 | | | | | | AM PDT | | | | +-------+ +--------+---+---+ +---+---+ | | | +---+---+ + +-------+ +-------+---+---+ | bisacodyl (DULCOLAX) | Given | 03/10/20 | 10 mg | | | | suppository 10 mg 10 mg, rectal, | | 19 1:11 | | | | | DAILY NEEDED, Starting Wed | | PM PDT | | | | | 03/09/19 at 0051, Until Sat | | | | | | | 03/12/19 at 0030, 2nd line for no | | | | | | | BM in past 2 days OR if no | | | | | | | response to MIRALAX or if patient | | | | | | | unable to tolerate oral | | | | | | + +-------+ +-------+---+---+ +---+---+ | | | +---+---+ + +-------+ +--------+---+---+ | caffeine (VIVARIN) tablet 100 | Given | 07/12/20 | 100 mg | | | | mg 100 mg, oral, EVERY 4 HOURS | | 19 9:26 | | | | | NEEDED, Starting Stefanie 03/10/19 | | AM PDT | | | | | at 1759, Until 03/12/19 at | | | | | | | 0030, VELAZQUEZ | | | | | | + +-------+ +--------+---+---+ +-------+ +--------+---+---+ | Given | 03/11/20 | 100 mg | | | | | 19 5:13 | | | | | | AM PDT | | | | +-------+ +--------+---+---+ | Given | 03/10/20 | 100 mg | | | | | 19 8:21 | | | | | | PM PDT | | | | +-------+ +--------+---+---+ +---+---+ | | | +---+---+ + +-------+ +-------+---+---+ | famotidine (PEPCID) tablet 20 | Given | 03/11/20 | 20 mg | | | | mg 20 mg, oral, TWICE DAILY, | | 19 9:26 | | | | | First dose on Thu03/09/19 at | | AM PDT | | | | | 0900, Until Discontinued | | | | | | + +-------+ +-------+---+---+ +-------+ +-------+---+---+ | Given | 03/10/20 | 20 mg | | | | | 19 8:21 | | | | | | PM PDT | | | | +-------+ +-------+---+---+ | Given | 03/10/20 | 20 mg | | | | | 19 8:16 | | | | | | AM PDT | | | | +-------+ +-------+---+---+ +---+---+ | | | +---+---+ + +-------+ + +---+---+ | fluticasone propionate | Given | 03/11/20 | 2 sprays | | | | (FLONASE) 50 mcg/actuation nasal | | 19 9:26 | | | | | spray 2 spray 2 spray, both | | AM PDT | | | | | nostrils, DAILY, First dose | | | | | | | (after last reorder) on [facility] | | | | | | | 03/10/19 at 0900, Until | | | | | | | Discontinued | | | | | | + +-------+ + +---+---+ +-------+ + +---+---+ | Given | 03/10/20 | 2 sprays | | | | | 19 8:17 | | | | | | AM PDT | | | | +-------+ + +---+---+ +---+---+ | | | +---+---+ + +-------+ +--------+---+---------+ | heparin injection 5,000 Units | Given | 03/11/20 | 5,000 | | Abdomen | | 5,000 Units, subcutaneous, EVERY | | 19 9:26 | Units | | | | 12 HOURS, First dose on Wed | | AM PDT | | | | | 03/09/19 at 2100, Until | | | | | | | Discontinued | | | | | | + +-------+ +--------+---+---------+ +-------+ +--------+---+---------+ | Given | 03/10/20 | 5,000 | | Abdomen | | | 19 8:21 | Units | | | | | PM PDT | | | | +-------+ +--------+---+---------+ | Given | 03/10/20 | 5,000 | | Abdomen | | | 19 8:17 | Units | | | | | AM PDT | | | | +-------+ +--------+---+---------+ +---+---+ | | | +---+---+ + +---------+ + +---+---+ | lactated ringers IV 1,000 mL, | New Bag | 03/10/20 | 1,000 mL | | | | intravenous, ONCE, 1 dose, Stefanie | | 19 6:13 | | | | | 03/10/19 at 1830 | | PM PDT | | | | + +---------+ + +---+---+ +---+---+ | | | +---+---+ + +-------+ +--------+---+---+ | lamoTRIgine (LAMICTAL XR) ER | Given | 03/10/20 | 200 mg | | | | tablet tr24 200 mg 200 mg (1 | | 19 8:22 | | | | | tablet), oral, EVERY EVENING, | | PM PDT | | | | | First dose on Thu03/09/19 at | | | | | | | 2100, Until Discontinued | | | | | | + +-------+ +--------+---+---+ +-------+ +--------+---+---+ | Given | 03/09/20 | 200 mg | | | | | 19 8:10 | | | | | | PM PDT | | | | +-------+ +--------+---+---+ +---+---+ | | | +---+---+ + + + +---------+---+--------+ | lidocaine (LIDODERM) 5 % patch | Applied | 03/10/20 | 1 patch | | Left | | 1 patch 1 patch, transdermal, | Patch | 19 8:22 | | | Lower | | EVERY 24 HOURS, First dose on Thu | | PM PDT | | | Back | | 03/09/19 at 0130, Until | | | | | | | Discontinued | | | | | | + + + +---------+---+--------+ + + +---------+---+--------+ | Applied Patch | 03/09/20 | 1 patch | | Left | | | 19 8:10 | | | Lower | | | PM PDT | | | Back | + + +---------+---+--------+ | Applied Patch | 03/09/20 | 1 patch | | Left | | | 19 1:38 | | | Lower | | | AM PDT | | | Back | + + +---------+---+--------+ +---+---+ | | | +---+---+ + +-------+ +--------+---+---+ | lurasidone (LATUDA) tablet 120 | Given | 03/10/20 | 120 mg | | | | mg 120 mg, oral, EVERY EVENING, | | 19 8:22 | | | | | First dose on Thu03/09/19 at | | PM PDT | | | | | 2100, Until Discontinued | | | | | | + +-------+ +--------+---+---+ +-------+ +--------+---+---+ | Given | 03/09/20 | 120 mg | | | | | 19 8:10 | | | | | | PM PDT | | | | +-------+ +--------+---+---+ +---+---+ | | | +---+---+ + +-------+ +--------+---+---+ | methocarbamol (ROBAXIN) tablet | Given | 03/10/20 | 500 mg | | | | 500 mg 500 mg, oral, EVERY 6 | | 19 4:19 | | | | | HOURS NEEDED, Starting Wed | | PM PDT | | | | | 03/09/19 at 0210, Until Sat | | | | | | | 03/12/19 at 0030, muscle spasms | | | | | | + +-------+ +--------+---+---+ +-------+ +--------+---+---+ | Given | 03/10/20 | 500 mg | | | | | 19 10:34 | | | | | | AM PDT | | | | +-------+ +--------+---+---+ +---+---+ | | | +---+---+ + +-------+ +------+---+---+ | ondansetron ODT (ZOFRAN ODT) | Given | 03/11/20 | 8 mg | | | | tablet 8 mg 8 mg, oral, EVERY 12 | | 19 9:31 | | | | | HOURS NEEDED, Starting Wed | | AM PDT | | | | | 03/09/19 at 0052, Until Sat | | | | | | | 03/12/19 at 0030, nausea/vomiting, | | | | | | | first line | | | | | | + +-------+ +------+---+---+ +-------+ +------+---+---+ | Given | 03/10/20 | 8 mg | | | | | 19 8:17 | | | | | | AM PDT | | | | +-------+ +------+---+---+ +---+---+ | | | +---+---+ + +-------+ +------+---+---+ | oxyCODONE (immediate release) | Given | 03/11/20 | 5 mg | | | | (ROXICODONE) tablet 5-10 mg 5-10 | | 19 3:41 | | | | | mg, oral, EVERY 4 HOURS | | PM PDT | | | | | NEEDED, Starting 03/09/19 at | | | | | | | 0051, Until 03/12/19 at 0030, | | | | | | | moderate pain, unresponsive to | | | | | | | non-opioid medication | | | | | | + +-------+ +------+---+---+ +-------+ +------+---+---+ | Given | 03/11/20 | 5 mg | | | | | 19 11:14 | | | | | | AM PDT | | | | +-------+ +------+---+---+ | Given | 03/11/20 | 5 mg | | | | | 19 6:15 | | | | | | AM PDT | | | | +-------+ +------+---+---+ +---+---+ | | | +---+---+ + +-------+ + +---+---+ | peg-electrolyte (GOLYTELY) | Given | 03/11/20 | 4,000 mL | | | | liquid 4,000 mL 4,000 mL, oral, | | 19 12:56 | | | | | ONCE, 1 dose, 03/11/19 at 1230 | | PM PDT | | | | + +-------+ + +---+---+ +---+---+ | | | +---+---+ + +-------+ +------+---+---+ | polyethylene glycol (MIRALAX) | Given | 03/10/20 | 17 g | | | | packet 17 g 17 g, oral, THREE | | 19 8:17 | | | | | TIMES DAILY, 6 doses, First dose | | AM PDT | | | | | on Thu03/09/19 at 0100, Last dose | | | | | | | on Thu03/10/19 at 1600 | | | | | | + +-------+ +------+---+---+ +-------+ +------+---+---+ | Given | 03/09/20 | 17 g | | | | | 19 8:11 | | | | | | PM PDT | | | | +-------+ +------+---+---+ | Given | 03/09/20 | 17 g | | | | | 19 5:01 | | | | | | PM PDT | | | | +-------+ +------+---+---+ +---+---+ | | | +---+---+ + +-------+ +------+---+---+ | polyethylene glycol (MIRALAX) | Given | 03/11/20 | 17 g | | | | packet 17 g 17 g, oral, DAILY, | | 19 9:31 | | | | | First dose (after last | | AM PDT | | | | | modification) on Stefanie 03/10/19 at | | | | | | | 1200, Until Discontinued | | | | | | + +-------+ +------+---+---+ +---+---+ | | | +---+---+ + +-------+ +-------+---+---+ | prochlorperazine (COMPAZINE) | Given | 03/10/20 | 10 mg | | | | injection 5-10 mg 5-10 mg, | | 19 6:13 | | | | | intravenous, EVERY 6 HOURS | | PM PDT | | | | | NEEDED, Starting 03/09/19 at | | | | | | | 0052, Until 03/12/19 at 0030, | | | | | | | nausea/vomiting not responding to | | | | | | | ondansetron and unable to take | | | | | | | oral prochlorperazine | | | | | | + +-------+ +-------+---+---+ +-------+ +------+---+---+ | Given | 03/10/20 | 5 mg | | | | | 19 7:17 | | | | | | AM PDT | | | | +-------+ +------+---+---+ +---+---+ | | | +---+---+ + +-------+ +------+---+---+ | prochlorperazine (COMPAZINE) | Given | 03/11/20 | 5 mg | | | | tablet 5-10 mg 5-10 mg, oral, | | 19 3:41 | | | | | EVERY 6 HOURS NEEDED, Starting | | PM PDT | | | | | Thu03/09/19 at 0052, Until Sat | | | | | | | 03/12/19 at 0030, nausea/vomiting, | | | | | | | second line | | | | | | + +-------+ +------+---+---+ +---+---+ | | | +---+---+ + +-------+ +---------+---+---+ | senna-docusate (SENOKOT S) | Given | 03/11/20 | 2 | | | | 8.6-50 mg 2 tablet 2 tablet, | | 19 9:26 | tablets | | | | oral, TWICE DAILY, First dose on | | AM PDT | | | | | 03/09/19 at 0245, Until | | | | | | | Discontinued | | | | | | + +-------+ +---------+---+---+ +-------+ +---------+---+---+ | Given | 03/10/20 | 2 | | | | | 19 8:21 | tablets | | | | | PM PDT | | | | +-------+ +---------+---+---+ | Given | 03/10/20 | 2 | | | | | 19 8:16 | tablets | | | | | AM PDT | | | | +-------+ +---------+---+---+ +---+---+ | | | +---+---+ + +-------+ +-------+---+---+ | simvastatin (ZOCOR) tablet 40 | Given | 03/10/20 | 40 mg | | | | mg 40 mg, oral, EVERY EVENING, | | 19 8:21 | | | | | First dose on Thu03/09/19 at | | PM PDT | | | | | 2100, Until Discontinued | | | | | | + +-------+ +-------+---+---+ +-------+ +-------+---+---+ | Given | 03/09/20 | 40 mg | | | | | 19 7:56 | | | | | | PM PDT | | | | +-------+ +-------+---+---+ +---+---+ | | | +---+---+ + +-------+ + +---+---+ | sodium phosphates (FLEET) 19-7 | Given | 03/10/20 | 1 Bottle | | | | gram/118 mL rectal enema 1 Bottle | | 19 4:20 | | | | | 1 Bottle, rectal, ONCE, 1 dose, | | PM PDT | | | | | Stefanie 03/10/19 at 1545 | | | | | | + +-------+ + +---+---+ +---+---+ | | | +---+---+ + +-------+ + +---+---+ | sodium phosphates (FLEET) 19-7 | Given | 03/11/20 | 1 Bottle | | | | gram/118 mL rectal enema 1 Bottle | | 19 11:14 | | | | | 1 Bottle, rectal, ONCE, 1 dose, | | AM PDT | | | | | 03/11/19 at 1030 | | | | | | + +-------+ + +---+---+ +---+---+ | | | +---+---+ + +-------+ +--------+---+---+ | traZODone (DESYREL) tablet 100 | Given | 03/09/20 | 100 mg | | | | mg 100 mg, oral, AT BEDTIME | | 19 1:39 | | | | | NEEDED, Starting Thu03/09/19 at | | AM PDT | | | | | 0046, Until Thu03/09/19 at 0903, | | | | | | | insomnia | | | | | | + +-------+ +--------+---+---+ + +---+ | | | + +---+ | traZODone (DESYREL) tablet 200 | | | mg 200 mg, oral, AT BEDTIME | | | NEEDED, Starting Thu03/09/19 at | | | 0902, Until 03/12/19 at 0030, | | | insomnia | | + +---+ | | | + +---+ documented in this encounter
--- OUTSIDE RECORDS SUMMARY | ~2019-07-27 | XMS | Encounter Summary ---
Demographics + + + | Address | [address] | | | [place] [address] | + + + | Home Phone | | + + + | Preferred Language | Unknown | + + + | Marital Status | Single | + + + | Islam Affiliation | NOD | + + + | Race | White | + + + | Ethnic Group | Not or | + + + Author + + + | Author | [facility] | + + + | Organization | [facility] | + + + | Address [...] Team Providers + +------+ + | Care Bed Rubber Name | Role | Phone | + +------+ + | Jose Woods DO | PCP | | + +------+ + Encounter Details +--------+ + + + + | Date | Type | Department | Care Team | Description | +--------+ + + + + | 03/09/ | Procedure | Diagnostic Imaging | | | | 2019 | Pass | Services at [facility] | | | | | | [address] | | | | | | Nicole Parks Mailcode: | | | | | | [address] [facility] | | | | | | [place], [place] | | | | | | [address] | | | | | | [phone] | | | +--------+ + + + [...]
--- OUTSIDE RECORDS SUMMARY | ~2019-07-27 | XMS | Encounter Summary ---
Demographics + + + | Address | [address] | | | [place] [address] | + + + | Home Phone | | + + + | Preferred Language | Unknown | + + + | Marital Status | Single | + + + | Baptism Affiliation | NOD | + + + | Race | White | + + + | Ethnic Group | Not or | + + + Author + + + | Author | [facility] | + + + | Organization | [facility] | + + + | Address | Unknown | + + + | Phone | Unavailable | + + + Support + + +---------+ + | Name | Relationship | Address | Phone | + + +---------+ + | Mando Kruse | ECON | Unknown | | + + +---------+ + | Christopher Litchfield | ECON | Unknown | | + + +---------+ + Care Team Providers + +------+ + | Care At Risk Specialist Name | Role | Phone | + [...] + | 03/08/ | Hospital | [facility] [address] | Naomi Philippe MD | | | 2019 - | Encounter | [address] | [address] | | | | | [place], [place] | [place], | | | 03/11/ | | [address] | [place] [address] | | | 2018 | | [phone] | [phone] | | | | | | | | | | | | Erick Garg MD | | | | | | [address] | | | | | | Jordyn Parks [place], | | | | | | [place] [address] | | | | | | [phone] | | | | | | | | | | | | Chivo Tucker MD | | | | | | [address] | | | | | | [place]yn [place], | | | | | | [place] [address] | | | | | | [phone] | | | | | | | | | | | | Flako, | | | | | | MD [address]admini [address] | | | | | | [address] | | | | | | [place], [place] | | | | | | [address] | | | | | | [phone] | | | | | | | [...] leg pain s/p l umbar decompression laminectomy [id number] ago and spinal cord stimulator placed 5, bipolar/schizoaffective disorder, anxiety, GERD, LHD, OA. She presents as transfer from [facility] 03/08/19 withacutely worsening lower back pain and [...] Appointments: I spent more than 39 minutes onap-sy-dbss with the patient of which 70% was [...] for entru sting your care to [facility] Internal Medicine. If you have any problems or concerns before you a re able to follow up with your Primary Care Provider, please call and ask the gristmill operator to page the attending physician who was caring for you at discharge. If that physi nabila is not available, ask the gristmill operator to page the physician on-call for [...] to clinical course Oh Mei PA-C [facility] [address] [place] [address] Haris Duffy MD - 03/11/2019 10:28 AM [...] MA Resident, Anesthesiology & Perioperative Medicine Pager [phone] Associated attestation - Catherine Dominguez MD - 03/11/2019 6:47 PM PDTI saw and evaluated Ms. Jutsin Lyon with Resident: Dr. Haris Silverio, who conducted the initial history and phys ical examination. I personally interviewed the patient and performed the pertinent parts o f the physical examination. I have reviewed the resident s note and I agree with the plan of care as documented. I do not have additional comments. Kolby Carbone, Chivo Franks MD - 03/10/2019 7:11 PM PDT [facility] Progress Note Hospital Day #2 24 Hour [...] Date 03/09/19 0700 - 03/10/19 0659 Shift [phone] 24 Hour Total INTAKE P.O. 100 100 [...] about 11 years ago. [facility]10 lumbar pain radiating around [...] likely 03/11/2019 Chivo Tucker MD Clinical Hospitalist [facility] Pager [phone] I spent 38 minutes jeip-zr-tdph with the patient of which 63% was [...] Hospitalist Primary Care Physician: Jose Woods DO [phone] Main Complaint: Postural headache History of Present [...] file Gets together: Not on file Attends adventist service: Not on file Active member of [...] with Resident: Dr. An, who [facility]. I personally interviewed [...] might be different from the o riginal. [facility] Progress Note Hospital Day #1 24 Hour [...] Date 03/09/19 07 - 03/10/19 0659 Shift [phone] [phone] 24 Hour Total INTAKE P.O. 100 100 [...] about 11 years ago. [facility]10 lumbar pain radiating around [...] of myelogram Chivo Tucker MD Clinical Hospitalist [facility] Pager [phone] I spent 33 minutes lqvg-kv-marm with the patient of which 59% was [...] | + + + + + | [facility] | [address] | [place] [address] | | | SERVICES, CORE | JORDYN [...] [facility] | [address] | [place] [address] | | | SERVICES, VINCENT | JORDYN [...] | | | LABORATORY | | | MONGOLIAN | | | SERVICES, | | | [...] equation recommended by the National | [facility] | | Kidney Disease Education Program. Estimated [...] + + + + + | [facility] | [address] | [place] [address] | | | SERVICES, CORE | PARK [...] | 6.84 | 3.50 - 10.80 | [facility] | | | COUNT | | K/cu [...] + + | [facility] | [address] | [place] [address] | | | SERVICES, CORE | PARK [...] | + + + + + | [facility] | [address] | [place] [address] | | | SERVICES, CORE | JORDYN [...] | | | LABORATORY | | | MONGOLIAN | | | SERVICES, | | | [...] + + + + + | [facility] [email or web address] | [address] | [place] [address] | | | SERVICES, VINCENT | JORDYN [...] | [facility] | | considered for monitoring terminal make up operator glycemic control in patients with: | LABORATORY [...] | + + + + + | [facility] | [address] | [place] [address] | | | SERVICES, SPECIAL | JORDYN [...] | + + + + + | [facility] | [address] | [place] [address] | | | SERVICESVINCENT | [address] | | | + + + + + X-RAY PORTABLE ABDOMEN 1 VIEW (03/09/2019 1:59 AM PDT) + + | Specimen | + + | | + + + + + | Narrative | Performed At | + + + | EXAM: MI ABDOMEN 1 VIEW SUPINE History: constipation | [...] Interface - 03/09/2019 12:01 PM PDT EXAM: MI ABDOMEN | | 1 VIEW SUPINE History: [...] presented. | | | |Final signature: Ce iPsano MD 03/09/2019 12:00 PM | |Preliminary: Sagar Roche MD 03/09/2019 11:32 AM | |Dictation initiated: Sagar Roche MD 03/09/2019 9:45 AM | + [...] [facility] | [address] | [place] [address] | | | SERVICES, CORE | PARK [...] | + + + + + | [facility] | [address] | [place] [address] | | | SERVICES, CORE | JORDYN [...] - | | | CONCENTRATI | [facility] and is | | [facility] | | | ON | performed using [...] + | NGO - [facility] - | [address] | [place] [address] | | | [place] | | | | + + + [...] + + + + + + | BENSON/SENIOR INSIGHT MANAGER INTERNATIONAL | 1Comment: INTERPRETIVE | 0 - 40 [...] | | | | | | Positive SENIOR INSIGHT MANAGER INTERNATIONAL antibody is | | | | | [...] negative; | | | | | | SENIOR INSIGHT MANAGER INTERNATIONAL is also present in | | | | | | 20-30 percent of | | | | | | systemic lupus | | | | | | erythematosus and 15-25 | | | | | | percent of progressive | | | | | | systemic sclerosis. SENIOR INSIGHT MANAGER INTERNATIONAL | | | | | | antigens [...] | | | | | | interpreting SENIOR INSIGHT MANAGER INTERNATIONAL | | | | | | results. [...] + + + + + + | OK-2 | Negative | Negative | [facility] | [...] | PTH - INTFC | | | SENIOR INSIGHT MANAGER INTERNATIONAL | | | | | | ANTIBODY [...] | [facility] | | | N (U3 SENIOR INSIGHT MANAGER INTERNATIONAL) | Interpretive | | REG UNIV | | | AB, IGG | Information: Fibrillarin | | PTH - INTFC | | | | (U3 SENIOR INSIGHT MANAGER INTERNATIONAL) Antibody, IgG | | | | | | The presence of | | | | | | fibrillarin (U3-SENIOR INSIGHT MANAGER INTERNATIONAL) IgG | | | | | | [...] in | | | | | | [place] patients with | | | | | [...] | | | | | | (n=98), U3-SENIOR INSIGHT MANAGER INTERNATIONAL | | | | | | antibodies [...] | | | | | | borderline U3-SENIOR INSIGHT MANAGER INTERNATIONAL | | | | | | results [...] | | | | | Kaiden [place], [facility],[place] | | | | | | [address] | | | | | | [phone]. | | | | | | com, [...] D: | | | | | | Match[employer]Me.NTN Buzztime/CS | | | | + + + [...] | | | | | (small nuclear) SENIOR INSIGHT MANAGER INTERNATIONAL | | | | | | Antibody . . . . . . . . | | | | | | . . . XFibrillarin | | | | | | (U3 SENIOR INSIGHT MANAGER INTERNATIONAL) Ab, IgG . . . . | [...] D: | | | | | | MatchMate[employer]Me.NTN Buzztime/CS | | | | + + + [...] [facility] | [address] | [place], [place] | | | UNIV PTH - INTFC | | [address] | | + + + + + [...] by | | | | | | [address] | | | | | | Kaiden Martinez, [facility],[place] | | | | | | [address] | | | | | | [phone]. | | | | | | [facility] center[facility] MD, | | | | | | [...] [facility] | [address] | [place], [place] | | | UNIV PTH - INTFC | | [address] | | + + + + + [...] IFA | | | | | | ([id number]). No | | | | | | antibodies to | | | | | | Anti-Nuclear Antibodies | | | | | | (SHLOMO) detected. The | | | | | | Extractable Nuclear | | | | | | Antigen Antibodies (SENIOR INSIGHT MANAGER INTERNATIONAL, | | | | | | Benson, [...] | | | | | | [place] [address] | | | | | | [phone]. | | | | | | Srinath [...] [facility] | [address] | [place], [place] | | | UNIV PTH - INTFC | | [address] | | + + + + + [...] [facility] | [address] | [place] [address] | | | SERVICES, CORE | PARK [...] + + + + + | [facility] | [address] | [place] [address] | | | VINCENT FAUSTIN | JORDYN [...] + + + + + | [facility] | [address] | [place] [address] | | | VINCENT FAUSTIN | J[address]YN [...] | | | LABORATORY | | | MONGOLIAN | | | SERVICES, | | | [...] equation recommended by the National | [facility] | | Kidney Disease Education Program. Estimated [...] + + + + + | [facility] | [address] | [place] [address] | | | SERVICES, CORE | PARK [...] | + + + + + | [facility] | [address] | [place] [address] | | | SERVICES, CORE | JORDYN [...] DEPT OF | [address] | [place], [place] | | | CARDIOLOGY | [address] | [address] | | + + + + + [...] | | | (after last reorder) on [facility] | | | | | | [...]
--- OUTSIDE RECORDS SUMMARY | ~2019-07-27 | XMS | Clinical Summary ---
Demographics + + + | Address | [address] | | | [place] [address] | + + + | Home Phone | | + + + | Preferred Language | Unknown | + + + | Marital Status | Single | + + + | Scientologist Affiliation | NOD | + + + | Race | White | + + + | Ethnic Group | Not or | + + + Author + + + | Author | [facility] | + + + | Organization | [facility] | + + + | Address | [...] Team Providers + +------+ + | Care Head Sawyer Name | Role | Phone | + +------+ + | Jose Woods DO | PCP | | + +------+ + Source Comments SARAH is fully live on both EpicCare Ambulatory and EpicCare InPatient.[facility] Allergies + + + + + + | Active Allergy | Reactions | Severity | Noted | Comments | | | | | Date | | + + + + + + | Apricot | Pruritus | High | 03/08/20 | "it will kill me" | | | | | 19 | | + + + + + + | Gabapentin | Pruritus, Facial | | /05/20 | | | | Swelling | | 19 | | + + + + + + | Latex | Pruritus | | 03/08/20 | | | | | | 19 | | + + + + + + | Penicillin | Hives, Angina | | 03/08/20 | | | | | | 19 | | + + + + + + | Sulfa (Sulfonamide | Hives | | 03/08/20 | | | Antibiotics) | | | 19 | | + + + + + + Medications + + + +---------+------+------+-------+ | Medication | Sig | Dispensed | Refills | Star | End | Statu | | | | | | t | Date | s | | | | | | Date | | | + + + +---------+------+------+-------+ | simvastatin 40 mg | Take 40 mg by mouth | | 0 | | | Activ | | oral tablet | once daily in the | | | | | e | | | evening. | | | | | | + + + +---------+------+------+-------+ | acyclovir 400 mg | Take 400 mg by mouth | | 0 | | | Activ | | oral tablet | two times daily. | | | | | e | + + + +---------+------+------+-------+ | lurasidone 120 mg | Take 120 mg by mouth | | 0 | | | Activ | | oral tablet | once daily in the | | | | | e | | | evening. | | | | | | + + + +---------+------+------+-------+ | lamoTRIgine 200 mg | Take 200 mg by mouth | | 0 | | | Activ | | oral tablet | once daily in the | | | | | e | | extended release | evening. | | | | | | | 24hr | | | | | | | + + + +---------+------+------+-------+ | fluticasone | Instill 2 sprays | | 0 | | | Activ | | propionate 50 | into each nostril | | | | | e | | mcg/actuation nasal | once daily in the | | | | | | | spray,suspension | evening. | | | | | | + + + +---------+------+------+-------+ | ranitidine 150 mg | Take 300 mg by mouth | | 0 | | | Activ | | oral tablet | once daily at | | | | | e | | | bedtime. | | | | | | + + + +---------+------+------+-------+ | traZODone 100 mg | Take 200 mg by mouth | | 0 | | | Activ | | oral tablet | once daily at | | | | | e | | | bedtime. | | | | | | + + + +---------+------+------+-------+ | | Take 1 tablet by | | 0 | | | Activ | | multivitamin-mineral | mouth once daily in | | | | | e | | s oral tablet | the evening. | | | | | | + + + +---------+------+------+-------+ | oxyCODONE | Take 2 tablets by | 15 | 0 | 07/1 | | Activ | | (immediate release) | mouth every six | tablet | | 2/20 | | e | | 5 mg oral tablet | hours as needed for | | | 19 | | | | | severe pain. | | | | | | + + + +---------+------+------+-------+ | senna-docusate | Take 2 tablets by | 120 | 1 | 02/28 | | Activ | | 8.6-50 mg oral | mouth two times | tablet | | 2/20 | | e | | tabletIndications: | daily. Indications: | | | 19 | | | | constipation | constipation | | | | | | + + + +---------+------+------+-------+ | polyethylene | Mix 17 g (1 capful) | 119 g | 1 | 02/28 | | Activ | | glycol 17 gram/dose | in liquid and drink | | | 2/20 | | e | | oral powder | once daily. | | | 19 | | | + + + +---------+------+------+-------+ Active Problems + + + | Problem | Noted Date | + + + | Slow transit constipation | 03/11/2019 | + + + | Chronic back pain | 03/11/2019 | + + + | Urinary frequency | 03/11/2019 | + + + | Sick sinus syndrome | | + + + | Schizoaffective disorder | | + + + | Lumbar post-laminectomy syndrome | | + + + | Depression | | + + + | Bipolar 1 disorder | | + + + Family History + + +------+ + | Medical History | Relation | Name | Comments | + + +------+ + | GI problems | Father | | Stomach aneurysm bleed | + + +------+ + | Pancreatic cancer | Mother | | | + + +------+ + + +------+--------+ + | Relation | Name | Status | Comments | + +------+--------+ + | Father | | | | + +------+--------+ + | Mother | | | | + +------+--------+ + Social History + +-------+ +--------+------+ | [...] + + + + Plan of Treatment + + + + + | Health Maintenance | Due Date | Last Done | Comments | + + + + + | Influenza (Flu) | | 09/20/2018, 08/06/2017 | | | vaccination (#1) | 9 | | | + + + + + | Pneumococcal | Aged Out | | No longer eligible | | vaccination | | | based on patient's | | | | | age to complete this | | | | | topic | + + + + + Results Not on filefrom Last 3 Months Insurance + +--------+ +--------+ + +--------+ | Payer | Benefi | Subscriber | Effect | Phone | Address | Type | | | t Plan | ID | fabienne | | | | | | / | | Dates | | | | | | Group | | | | | | + +--------+ +--------+ + +--------+ | MEDICARE | MEDICA | xxxxxxxxxxx | 12/30/19 | [phone] | [address] | [address] | | | RE A & | | 04-Pre | [phone] | | | [address] | | sent | | [place], [place] | | | | | | | | [address] | | + +--------+ +--------+ + +--------+ | INDUSTRIAL MECHANIC MEDICAID | INDUSTRIAL MECHANIC | xxxxxxxx | 08/31/19 | | | Medica | | | [place]AST[place] | | 19-Pre | | | id | | | [place] | | sent | | | | + +--------+ +--------+ + +--------+ + +--------+ +--------+ + + | Guarantor [...] | | al/Fam | | 1961 | [phone] | [place] [address] | | | emeli | | | 0 (Home) | | + +--------+ +--------+ + + Advance Directives + + + + + | Code Status | Date | Date | Comments | | | Activated | Inactivated | | + + + + + | Full Code | 03/09/2019 | 03/12/2019 | | | | 12:54 AM | 12:35 AM | | + + + + +
--- OUTSIDE RECORDS SUMMARY | ~2019-07-27 | XMS | Clinical Summary ---
Demographics + + + | Address | [address] | | | [place] [address] | + + + | Home Phone | | + + + | Preferred Language | Unknown | + + + | Marital Status | Single | + + + | Jewish Affiliation | NOD | + + + [...] Team Providers + +------+ + | Care Fleet Maintenance Manager Name | Role | Phone | + +------+ + | Jose Woods DO | PCP | | + +------+ + Source Comments SARAH is fully live on both EpicCare Ambulatory and EpicCare InPatient.[facility] Allergies + + + + + + [...] | | | | | | | [address] | | + +--------+ +--------+ + +--------+ | GRILL CHEF MEDICAID | GRILL CHEF | xxxxxxxx | 08/31/19 | | | [...] | 1961 | [phone] | [place] [address] | | | emeli | | | [...]
--- OUTSIDE RECORDS SUMMARY | ~2019-07-27 | XMS | Encounter Summary ---
Demographics + + + | Address | [address] | | | [place] [address] | + + + | Home Phone | | + + + | Preferred Language | Unknown | + + + | Marital Status | Single | + + + | Rastafarian Affiliation | NOD | + + + | Race | White | + + + | Ethnic Group | Not or | + + + Author + + + | Author | [facility] | + + + | Organization | [facility] | + + + | Address | [...] Team Providers + +------+ + | Care Business Functional Analyst Name | Role | Phone | + +------+ + | Jose Woods DO | PCP | | + +------+ + Encounter Details +--------+ + + + + | Date | Type | Department | Care Team | Description | +--------+ + + + + | 03/09/ | Procedure | Diagnostic Imaging | | | | 2019 | Pass | Services at [facility] | | | | | | [address] | | | | | | Nicole Parks Mailcode: | | | | | | [address] [facility] | | | | | | [place], [place] | | | | | | [address] | | | | | | [phone] | | | +--------+ + + + [...]
--- OUTSIDE RECORDS SUMMARY | ~2019-07-27 | XMS | Encounter Summary ---
Demographics + + + | Address | [address] | | | [place] [address] | + + + | Home Phone | | + + + | Preferred Language | Unknown | + + + | Marital Status | | + + + | Mu-Ism Affiliation | Unknown | + + + | Race | Unknown | + + + | Ethnic Group | Unknown | + + + Author + + + | Author | [facility] | | | and [place] | + + + | Organization | [facility] | | | and [...] Team Providers + +------+ + | Care Pharmacy Services Representative Name | Role | Phone | + +------+ + | Jose Woods DO | PCP | | + +------+ + Encounter Details +--------+ + + + + | Date | Type | Department | Care Team | Description | +--------+ + + + + | 12/30/ | Orders Only | [facility] | Conversion | | | 2018 | | CONVERSION [address] | Transaction, | | | | | [address] | Provider Unknown | | | | | [place] | [phone] | | | | | [address] | | | | | | [phone] | | | +--------+ + + + [...] [place] | | | | | | [address] | | | | | | | | +--------+---------+ + + + documented as of this encounter Visit Diagnoses Not on filedocumented in this encounter"
--- OUTSIDE RECORDS SUMMARY | ~2019-07-27 | XMS | Encounter Summary ---
Demographics + + + | Address | [address] | | | [place] [address] | + + + | Home Phone | | + + + | Preferred Language | Unknown | + + + | Marital Status | | + + + | Restoration Affiliation | Unknown | + + + | Race | Unknown | + + + | Ethnic Group | Unknown | + + + Author + + + | Author | [facility] | | | and [place] | + + + | Organization | [facility] | | | and [...] Team Providers + +------+ + | Care Assistant Infant Toddler Teacher Name | Role | Phone | + +------+ + PCP | Unavailable | + +------+ + Encounter Details +--------+ + + + + | Date | Type | Department | Care Team | Description | +--------+ + + + + | 05/09/ | Hospital | [facility] GENER[facility] IP | Conversion | Pain | | 2014 | Encounter | CON[address] | Transaction, | | | | | [address] | Provider Unknown | | | | | [place], [place] | [phone] | | | | | [address] | | | | | | [phone] | | | +--------+ + + + [...] [place] | | | | | | [address] | | | | | | | [...]
--- OUTSIDE RECORDS SUMMARY | ~2019-07-27 | XMS | Encounter Summary ---
Demographics + + + | Address | [address] | | | [place] [address] | + + + | Home Phone | | + + + | Preferred Language | Unknown | + + + | Marital Status | | + + + | Worship Affiliation | Unknown | + + + | Race | Unknown | + + + | Ethnic Group | Unknown | + + + Author + + + | Author | [facility] | | | and [place] | + + + | Organization | [facility] | | | and [...] Team Providers + +------+ + | Care Hand Worker Name | Role | Phone | + +------+ + PCP | Unavailable | + +------+ + Encounter Details +--------+ + + + + | Date | Type | Department | Care Team | Description | +--------+ + + + + | 05/09/ | Hospital | [facility] GENER[facility] IP | Conversion | Pain | | 2014 | Encounter | CONVERSION [address] | Transaction, | | | | | [address] | Provider Unknown | | | | | [place], [place] | [phone] | | | | | [address] | | | | | | [phone] | | | +--------+ + + + [...] [place] | | | | | | [address] | | | | | | | | +--------+---------+ + + + documented as of this encounter Procedures + +--------+ + + + | Procedure Name | Priori | Date/Time | Associated Diagnosis | Comments | | | ty | | | | + +--------+ + + + | FL MYELOGRAM LUMBAR | Routin | 03/08/2014 | | Results for this | | | e | 11:58 PM | | procedure are in the | | | | PDT | | results section. | + +--------+ + + + documented in this encounter Results FL Myelogram Lumbar (03/08/2014 11:58 PM PDT) + + | Specimen | [...]
--- OUTSIDE RECORDS SUMMARY | ~2019-07-27 | XMS | Encounter Summary ---
Demographics + + + | Address | [address] | | | [place] [address] | + + + | Home Phone | | + + + | Preferred Language | Unknown | + + + | Marital Status | | + + + | Pentecostalism Affiliation | Unknown | + + + | Race | Unknown | + + + | Ethnic Group | Unknown | + + + Author + + + | Author | [facility] | | | and [place] | + + + | Organization | [facility] | | | and [...] Team Providers + +------+ + | Care Pit Manager Name | Role | Phone | + +------+ + PCP | Unavailable | + +------+ + Encounter Details +--------+ + + + + | Date | Type | Department | Care Team | Description | +--------+ + + + + | 05/09/ | Hospital | [facility] | Conversion | Pain | | 2014 | Encounter | [address]VERSION [address] | Transaction, | | | | | [address] | Provider Unknown | | | | | [place], [place] | [phone] | | | | | [address] | | | | | | [phone] | | | +--------+ + + + [...] [place] | | | | | | [address] | | | | | | | [...]
--- OUTSIDE RECORDS SUMMARY | ~2019-07-27 | XMS | Encounter Summary ---
Demographics + + + | Address | [address] | | | [place] [address] | + + + | Home Phone | | + + + | Preferred Language | Unknown | + + + | Marital Status | Single | + + + | Yazidi Affiliation | NOD | + + + [...] Team Providers + +------+ + | Care Instructor Kindergarten Name | Role | Phone | + [...] | | | | | [address] [place], | | | | | | [place] [address] | | | +--------+--------+ + + + [...]
--- OUTSIDE RECORDS SUMMARY | ~2019-07-27 | XMS | Encounter Summary ---
Demographics + + + | Address | [address] | | | [place] [address] | + + + | Home Phone [...] | + + +---------+ + | Christopher De Witt | ECON | Unknown | | + + +---------+ + Care Team Providers + +------+ + | Care Test Rider Name | Role | Phone | + [...] + + | 03/08/ | Hospital | [facility] [address] | Naomi Philippe MD | | | 2019 - | Encounter | [address] | [address] | | | | | [place], [place] | [address] [place], | | | 03/11/ | | [address] | [place] [address] | | | 2018 | | [phone] | [phone] | | | | | | | | | | | | Erick Garg MD | | | | | | [address] | | | | | | [place], | | | | | | [place] [address] | | | | | | [phone] | | | | | | | | | | | | Chivo Tucker MD | | | | | | [address] | | | | | | [place], | | | | | | [place] [address] | | | | | | [phone] | | | | | | | | | | | | Flako, | | | | | | MD Padmini [address] | | | | | | [address] | | | | | | [place], [place] | | | | | | [address] | | | | | | [phone] | | | | | | | [...] leg pain s/p l umbar decompression laminectomy [id number] ago and spinal cord stimulator placed 5, bipolar/schizoaffective disorder, anxiety, GERD, LHD, OA. She presents as transfer from [facility] 03/08/19 withacutely worsening lower back [...] Appointments: I spent more than 39 minutes [id number] with the patient of which 70% was [...] you for entru sting your care to [facility] Internal Medicine. If you have any problems or concerns before you a re able to follow up with your Primary Care Provider, please call and ask the excelsior machine operator to page the attending physician who was caring for you at discharge. If that physi nabila is not available, ask the excelsior machine operator to page the physician on-call for [...] Secondary to clinical course Oh Mei PA-C [facility] [address] [place] [address] Haris Duffy MD - 03/11/2019 10:28 AM [...] MA Resident, Anesthesiology & Perioperative Medicine Pager [phone] Associated attestation - Catherine Dominguez MD - [...] Franks MD - 03/10/2019 7:11 PM PDT [facility] Progress Note Hospital Day #2 [...] Date 03/09/19 0700 - 03/10/19 0659 Shift [phone] 3526-4509 24 Hour Total INTAKE [address] 100 [...] about 11 years ago. Patient awoke from [facility] with severe 10/10 lumbar pain radiating [...] likely 03/11/2019 Chivo Tucker MD Clinical Hospitalist [facility] Pager [phone] I spent 38 minutes [id number] with the patient of which 63% was [...] Hospitalist Primary Care Physician: Jose Woods DO [phone] Main Complaint: Postural headache History of Present [...] file Gets together: Not on file Attends congregational service: Not on file Active member of [...] Resident: Dr. An, who conducted the [facility] history and physical examination. I [...] might be different from the o riginal. [facility] Progress Note Hospital Day #1 [...] Date 03/09/19 07 - 03/10/19 0659 Shift [phone] 0732-5850 4654-2698 24 Hour Total INTAKE [address] 100 [...] about 11 years ago. Patient awoke from [facility] with severe 10/10 lumbar pain radiating [...] of myelogram Chivo Tucker MD Clinical Hospitalist [facility] Pager [phone] I spent 33 minutes [id number]-[id number] with the patient of which 59% was [...] + + + + | [facility] | [address] | [place] [address] | | | SERVICES, CORE | JORDYN [...] [facility] | [address] | [place] [address] | | | SERVICES, VINCENT | JORDYN [...] | | | LABORATORY | | | HAITIAN | | | SERVICES, | | | | | | CORE | | + +---------+ + + + | EGFR NON | 59 (L) | >60 mL/min | [facility] | | | -[facility] | | | LABORATORY | | | [...] MDRD equation recommended by the National | [facility] | | Kidney Disease Education Program. Estimated [...] | + + + + + | [facility] | [address] | [place] [address] | | | SERVICES, CORE | PARK [...] | 6.84 | 3.50 - 10.80 | [facility] | | | COUNT | | K/cu [...] + + | [facility] | [address] | [place] [address] | | | SERVICES, CORE | PARK [...] + + + + | [facility] | [address] | [place] [address] | | | SERVICES, CORE | JORDYN [...] | | | LABORATORY | | | HAITIAN | | | SERVICES, | | | [...] | + + + + + | [facility] | [address] | [place] [address] | | | SERVICES, VINCENT | JORDYN [...] [facility] | | considered for monitoring terminal gauger supervisor glycemic control in patients with: | LABORATORY [...] + + + + | [facility] | [address] | [place] [address] | | | SERVICES, SPECIAL | JORDYN [...] | + + + + + | [facility] | [address] | [place] [address] | | | SERVICESVINCENT | [address] | | | + + + + + X-RAY PORTABLE ABDOMEN 1 VIEW (03/09/2019 1:59 AM PDT) + + | Specimen | + + | | + + + + + | Narrative | Performed At | + + + | EXAM: AL ABDOMEN 1 VIEW SUPINE History: constipation | [...] Interface - 03/09/2019 12:01 PM PDT EXAM: AL ABDOMEN | | 1 VIEW SUPINE History: [...] [facility] | [address] | [place] [address] | | | SERVICES, CORE | PARK [...] | + + + + + | [facility] | [address] | [place] [address] | | | SERVICES, CORE | JORDYN [...] - | | | CONCENTRATI | [facility] | | [facility] | | | ON | performed using [...] + | [facility] - [facility] - | [address] | [place] [address] | | | [place] | | | | + + + [...] + + + + + + | BENSON/ABE TEACHER | 1Comment: INTERPRETIVE | 0 - 40 [...] | | | | | | Positive ABE TEACHER antibody is | | | | | [...] negative; | | | | | | ABE TEACHER is also present in | | | | | | 20-30 percent of | | | | | | systemic lupus | | | | | | erythematosus and 15-25 | | | | | | percent of progressive | | | | | | systemic sclerosis. ABE TEACHER | | | | | | antigens [...] | | | | | | interpreting ABE TEACHER | | | | | | results. [...] + + + + + + | MS-2 | Negative | Negative | [facility] | [...] | PTH - INTFC | | | ABE TEACHER | | | | | | ANTIBODY [...] | [facility] | | | N (U3 ABE TEACHER) | Interpretive | | REG UNIV | | | AB, IGG | Information: Fibrillarin | | PTH - INTFC | | | | (U3 ABE TEACHER) Antibody, IgG | | | | | | The presence of | | | | | | fibrillarin (U3-ABE TEACHER) IgG | | | | | | [...] in | | | | | | [place]egales[place] patients with | | | | | [...] | | | | | | (n=98), U3-ABE TEACHER | | | | | | antibodies [...] | | | | | | borderline U3-ABE TEACHER | | | | | | results [...] | | | | | Kaiden [place], [facility] | | | | | | [address] | | | | | | [phone]. | | | | | | com, [...] D: | | | | | | [employer] | | | | + + + [...] | | | | | (small nuclear) ABE TEACHER | | | | | | Antibody . . . . . . . . | | | | | | . . . XFibrillarin | | | | | | (U3 ABE TEACHER) Ab, IgG . . . . | [...] D: | | | | | | [employer] | | | | + + + [...] [facility] | [address] | [place], [place] | | | UNIV PTH - INTFC | | [address] | | + + + + + [...] by | | | | | | [address] | | | | | | Kaiden [place], [facility] | | | | | | [address] | | | | | | [phone].[employer]. | | | | | | [facility] center[facility]ath MD, | | | [...] [facility] | [address] | [place], [place] | | | UNIV PTH - INTFC | | [address] | | + + + + + [...] IFA | | | | | | ([id number]). No | | | | | | antibodies to | | | | | | Anti-Nuclear Antibodies | | | | | | (SHLOMO) detected. The | | | | | | Extractable Nuclear | | | | | | Antigen Antibodies (ABE TEACHER, | | | | | | Benson, [...] | | | | | | [place] [address] | | | | | | [phone].aruplab. | | | | | | Srinath [...] [facility] | [address] | [place], [place] | | | UNIV PTH - INTFC | | [address] | | + + + + + [...] [facility] | [address] | [place] [address] | | | SERVICES, CORE | PARK [...] | + + + + + | [facility] | [address] | [place] [address] | | | VINCENT FAUSTIN | JORDYN [...] | + + + + + | [facility] | [address] | [place] [address] | | | VINCENT FAUSTIN | [address] [...] | | | LABORATORY | | | HAITIAN | | | SERVICES, | | | [...] MDRD equation recommended by the National | [facility] | | Kidney Disease Education Program. Estimated [...] | + + + + + | [facility] | [address] | [place] [address] | | | SERVICES, CORE | PARK [...] | + + + + + | [facility] | [address] | [place] [address] | | | SERVICES, CORE | JORDYN [...] DEPT OF | [address] | [place], [place] | | | CARDIOLOGY | [address] | [address] | | + + + + + [...] | | | (after last reorder) on [facility] | | | | | | [...]
--- OUTSIDE RECORDS SUMMARY | ~2019-07-27 | XMS | Encounter Summary ---
Demographics + + + | Address | [address] | | | [place] [address] | + + + | Home Phone [...] Author + + + | Author | [facility] | + + + | Organization | [facility] | + + + | [...] Team Providers + +------+ + | Care Growth Media Mixer Mushroom Name | Role | Phone | + +------+ + | Jose Woods DO | PCP | | + +------+ + Encounter Details +--------+ + + + + | Date | Type | Department | Care Team | Description | +--------+ + + + + | 03/10/ | Pharmacy | Outpatient Retail | | | | 2019 | Visit | Clinic Pharmacy | | | | | | [address] | | | | | | [address] [place], | | | | | | [place] [address] | | | | | | [phone] | | | +--------+ + + + [...] + + documented as of this encounter Functional Status + + + [...]
--- OUTSIDE RECORDS SUMMARY | ~2019-07-27 | XMS | Clinical Summary ---
Demographics + + + | Address | [address] | | | [place] [address] | + + + | Home Phone | | + + + | Preferred Language | Unknown | + + + | Marital Status | | + + + | Yarsanism Affiliation | Unknown | + + + | Race | Unknown | + + + | Ethnic Group | Unknown | + + + Author + + + | Author | [facility] | | | and [place] | + + + | Organization | [facility] | | [...] Team Providers + +------+ + | Care Qa Specialist Name | Role | Phone | [...] + + + + + + | [facility] | Other (See Comments) | Medium | [...] + + | Overview: Overview: | | [employer] | + + + + + [...] | | | | | [place], [place] | | | | | | [address] | | | | | | | [...] Camron PCP: Jose Woods DO : 1960MRN: [id number] | | | Primary cardiology provider: Tiago Pleitez Primary | | | electrophysiology provider: Lizzy Mode of interrogation: Seen in | | | cardiac device clinic Device: [employer] Battery Longevity: 4 | | | [...] high rate episodes: 6 | | | SERVICE WRITER. Total time 1.1 min Confirmed episodes of [...] |Atrial events: Atrial high rate episodes: 6 SERVICE WRITER. Total time 1.1 | | |min | [...] +--------+ +---------+--------+ | MEDICARE | MEDICA | [id number] | 12/30/19 | [phone] | | Medica | | | RE | | 04-Pre | 5 | | re | | | PART A | | sent | | | | | | AND B | | | | | | + +--------+ +--------+ +---------+--------+ | [employer] | MODA | [id number] | | [phone] | | Medica | | MEDICAID HMO [...] | | al/Fam | | 1961 | [phone] | [place] | | | emeli | | | 0 (Home) | [address] | + +--------+ +--------+ + + Advance Directives + + + + + | Type | Date Recorded | Patient | Explanation | | | | Inside Sales | | + + + + + | Power of | | | | | Air Control/Anti Air Warfare Officer | | | | + + + + + | Advance | | | | | Directive | | | | + + + + +
--- OUTSIDE RECORDS SUMMARY | ~2019-07-27 | XMS | Encounter Summary ---
Demographics + + + | Address | [address] | | | [place] [address] | + + + | Home Phone | | + + + | Preferred Language | Unknown | + + + | Marital Status | Single | + + + | Christian Affiliation | NOD | + + + | Race | White | + + + | Ethnic Group | Not or | + + + Author + + + | Author | [facility] | + + + | Organization | [facility] | + + + | Address [...] Team Providers + +------+ + | Care Director Of Physician Practices Name | Role | Phone | + [...] Pharmacy | | | | | | [address] | | | | | | [address] [place], | | | | | | [place] [address] | | | | | | [phone] | | | +--------+ + + + [...]
--- OUTSIDE RECORDS SUMMARY | ~2019-07-27 | XMS | Encounter Summary ---
Demographics + + + | Address | [address] | | | [place] [address] | + + + | Home Phone | | + + + | Preferred Language | Unknown | + + + | Marital Status | Single | + + + | Catholic Affiliation | NOD | + + + | Race | White | + + + | Ethnic Group | Not or | + + + Author + + + | Author | [facility] | + + + | Organization | [facility] | + + + | Address [...] Team Providers + +------+ + | Care Record Pressman Name | Role | Phone | + +------+ + | Jose Woods DO | PCP | | + +------+ + Encounter Details +--------+ + + + + | Date | Type | Department | Care Team | Description | +--------+ + + + + | 03/11/ | Pharmacy | Outpatient Retail | | | | 2019 | Visit | Clinic Pharmacy | | | | | | [address] | | | | | | [address] [place], | | | | | | [place] [address] | | | | | | [phone] | | | +--------+ + + + [...]
--- OUTSIDE RECORDS SUMMARY | ~2019-07-27 | XMS | Encounter Summary ---
Demographics + + + | Address | [address] | | | [place] [address] | + + + | Home Phone | | + + + | Preferred Language | Unknown | + + + | Marital Status | | + + + | Restorationist Affiliation | Unknown | + + + | Race | Unknown | + + + | Ethnic Group | Unknown | + + + Author + + + | Author | [facility] | | | and [place] | + + + | Organization | [facility] | | [...] Team Providers + +------+ + | Care Customer Advocate Name | Role | Phone | + [...] | | | | [place] | [phone] | | | | | [address] | | | | | | [phone] | | | +--------+ + + + [...] [place] | | | | | | [address] | | | | | | | | +--------+---------+ + + + documented as of this encounter Visit Diagnoses Not on filedocumented in this encounter"
--- OUTSIDE RECORDS SUMMARY | ~2019-07-27 | XMS | Encounter Summary ---
Demographics + + + | Address | [address] | | | [place] [address] | + + + | Home Phone | | + + + | Preferred Language | Unknown | + + + | Marital Status | Single | + + + | Amish Affiliation | NOD | + + + | Race | White | + + + | Ethnic Group | Not or | + + + Author + + + | Author | [facility] | + + + | Organization | [facility] | + + + | Address [...] Team Providers + +------+ + | Care Livestock Slaughterer Name | Role | Phone | + [...] Pharmacy | | | | | | [address] | | | | | | [address] [place], | | | | | | [place] [address] | | | | | | [phone] | | | +--------+ + + + [...]
--- OUTSIDE RECORDS SUMMARY | ~2019-07-27 | XMS | Encounter Summary ---
Demographics + + + | Address | [address] | | | [place] [address] | + + + | Home Phone | | + + + | Preferred Language | Unknown | + + + | Marital Status | Single | + + + | Scientology Affiliation | NOD | + + + | Race | White | + + + | Ethnic Group | Not or | + + + Author + + + | Author | [facility] | + + + | Organization | [facility] | + + + | [...] Team Providers + +------+ + | Care In Home Sales Consultant Name | Role | Phone | + [...] Pharmacy | | | | | | [address] | | | | | | [address] [place], | | | | | | [place] [address] | | | | | | [phone] | | | +--------+ + + + [...]
--- OUTSIDE RECORDS SUMMARY | ~2019-07-27 | XMS | Clinical Summary ---
Demographics + + + | Address | [address] | | | [place] [address] | + + + | Home Phone | | + + + | Preferred Language | Unknown | + + + | Marital Status | | + + + | Buddhism Affiliation | Unknown | + + + | Race | Unknown | + + + | Ethnic Group | Unknown | + + + Author + + + | Author | [employer] [facility] (Historical as of | | | 04-16-19) | + + + | Organization | [facility] (Historical as of | | | 04-16-19) | + + + | Address | [...] Team Providers + +------+ + | Care Trouble Clerk Name | Role | Phone | + +------+ + | Jose Woods DO | PP | | + +------+ + Allergies + + + + + + | Active Allergy | Reactions | Severity | Noted | Comments | | | | | Date | | + + + + + + | Apricot Flavor | Swelling | Medium | 03/24/20 | | | | | | 16 | | + + + + + + | Mxu-Rtnx-Uvgk | Other (See Comments) | Medium | 11/12/19 | Extreme depression | | Buffered | | | 12 | | + + + + + + | Other-Drug | Itching | Medium | 11/14/19 | | | | | | 11 | | + + + + + + | Penicillins | Hives | High | 12/31/19 | | | | | | 18 | | + + + + + + | Prunus | Swelling | Medium | 04/29/20 | | | | | | 11 | | + + + + + + | Sulfa Antibiotics | Hives | High | 12/31/19 | | | | | | 18 | | + + + + + + Current Medications + + +-------+---------+------+------+-------+ | Prescription | Sig. | Disp. | Refills | Star | End | Statu | | | | | | t | Date | s | | | | | | Date | | | + + +-------+---------+------+------+-------+ | simvastatin | Take 40 mg by mouth | | | | | Activ | | (ZOCOR) 40 MG tablet | nightly. | | | | | e | + + +-------+---------+------+------+-------+ | meloxicam (MOBIC) | Take 15 mg by mouth | | | | | Activ | | 15 MG tablet | daily. | | | | | e | + + +-------+---------+------+------+-------+ | LamoTRIgine 200 MG | Take 2 tablets by | | | | | Activ | | TB24 | mouth nightly. | | | | | e | + + +-------+---------+------+------+-------+ | acyclovir | Take 400 mg by mouth | | | | | Activ | | (ZOVIRAX) 400 MG | daily. | | | | | e | | tablet | | | | | | | + + +-------+---------+------+------+-------+ | fluticasone | 2 sprays by Each | | | | | Activ | | (VERAMYST) 27.5 | Nare route daily. | | | | | e | | MCG/SPRAY nasal | | | | | | | | spray | | | | | | | + + +-------+---------+------+------+-------+ | ranitidine | Take 300 mg by mouth | | | | | Activ | | (ZANTAC) 150 MG | nightly. | | | | | e | | tablet | | | | | | | + + +-------+---------+------+------+-------+ | lurasidone | Take 120 mg by mouth | | | | | Activ | | (LATUDA) 120 MG | daily. T | | | | | e | | tablet | | | | | | | + + +-------+---------+------+------+-------+ Active Problems + + + | Problem | Noted Date | + + + | Bipolar affective (HCC) | 12/30/2017 | + + + | Cardiac pacemaker in situ | 08/04/2014 | + + + + + | Overview: Overview: | | [employer] | + + + + + | Subclinical hypothyroidism | 11/13/2010 | + + + Family History + [...] 66) | | + +------+ + + Social [...] + +---------+ + | Alcohol Use | Drinks/We | oz/Week | Comments | | | ek | | | + + +---------+ + | No | | | | + + +---------+ + + + + | Sex Assigned at | Date Recorded | | | | + + + | Not on file | | + + + Last Filed Vital Signs + + + + | Vital Sign | Reading | Time Taken | + + + + | Blood Pressure | 120/60 | 12/29/2018 10:11 AM PDT | + + + + | Pulse | 64 | 12/29/2018 10:11 AM PDT | + + + + | Temperature | - | - | + + + + | Respiratory Rate | 15 | 04/18/2014 1:10 PM PDT | + + + + | Oxygen Saturation | 98% | 12/29/2018 10:11 AM PDT | + + + + | Inhaled Oxygen | - | - | | Concentration | | | + + + + | Weight | 86.2 kg (190 lb 1.6 | 12/29/2018 10:11 AM PDT | | | oz) | | + + + + | Height | 175.3 cm (5' 9") | 12/29/2018 10:11 AM PDT | + + + + | Body Mass Index | 28.07 | 12/29/2018 10:11 AM PDT | + + + + Plan of Treatment +--------+---------+ + + + | Date | Type | Specialty | Care Team | Description | +--------+---------+ + + + | 01/03/ | Office | | Tiago Pleitez, | | | 2019 | Visit | | MD Shaji Bang | | | | | | Dr [address], | | | | | | [place] [address] | | | | | | [phone] | | | | | | | | +--------+---------+ + + + + + + + + | Health Maintenance | Due Date | Last Done | Comments | + + + + + | Vaccine: | | | | | Dtap/Tdap/Td (1 - | 9 | | | | Tdap) | | | | + + + + + | Cervical Cancer | | | | | Screening (Pap) | 0 | | | + + + + + | Breast Cancer | | | | | Screening | 0 | | | | (Mammogram) | | | | + + + + + | Colon Cancer | | | | | Screening | 0 | | | | (Colonoscopy) | | | | + + + + + | Vaccine: Zoster (1 | | | | | of 2) | 0 | | | + + + + + | Vaccine: Influenza | | | | | (#1) | 9 | | | + + + + + Results Not on filefrom Last 3 Months Insurance + +--------+ +------+-------+ + | Payer | Benefi | Subscriber | Type | Phone | Address | | | t Plan | ID | | | | | | / | | | | | | | Group | | | | | + +--------+ +------+-------+ + | MEDICARE | MEDICA | [id number] | | | [address] | | | RE | | | | [place] [address] | | | IP-OP | | | | | + +--------+ +------+-------+ + | MEDICAID | [place] | [id number] | | | [address] | | | N | | | | [place] | | | [place] | | | | [address] | | | INDUCTION HEAT TREATER | | | | | + +--------+ +------+-------+ + + +--------+ +--------+ + + | Guarantor Name | Accoun | Relation to | Date | Phone | Billing Address | | | t Type | Patient | of | | | | | | | | | | + +--------+ +--------+ + + | LYRIC SANTOS | Person | Self [birth year] | Home: | [address] | | | al/Fam | | 1961 | [phone] | [place] | | | [place] | | | [address] | [address] | + +--------+ +--------+ + +
--- OUTSIDE RECORDS SUMMARY | ~2019-07-27 | XMS | Encounter Summary ---
Demographics + + + | Address | [address] | | | [place] [address] | + + + | Home Phone | | + + + | Preferred Language | Unknown | + + + | Marital Status | Single | + + + | Temple Affiliation | NOD | + + + [...] Team Providers + +------+ + | Care Personnel Representative Name | Role | Phone | + +------+ + | Jose Woods DO | PCP | | + +------+ + Encounter Details +--------+ + + + + | Date | Type | Department | Care Team | Description | +--------+ + + + + | 03/09/ | Procedure | Diagnostic Imaging | | | | 2019 | Pass | Services at [facility] | | | | | | [address] [place] | | | | | | [place] Mailcode: | | | | | | [address] [facility] | | | | | | [place], [place] | | | | | | [address] | | | | | | [phone] | | | +--------+ + + + [...]
--- OUTSIDE RECORDS SUMMARY | ~2019-07-27 | XMS | Clinical Summary ---
Demographics + + + | Address | [address] | | | [place] [address] | + + + | Home Phone | | + + + | Preferred Language | Unknown | + + + | Marital Status | | + + + | Restoration Affiliation | Unknown | + + + | Race | Unknown | + + + | Ethnic Group | Unknown | + + + Author + + + | Author | [facility] | | | and [place] | + + + | Organization | [facility] | | | [...] Team Providers + +------+ + | Care Manager Technical Sales Name | Role | Phone | + [...] + + + + + + | Jvl-Oclb-Zqyr | Other (See Comments) | Medium | [...] + + | Overview: Overview: | | [employer] | + + + + + [...] | | | | | [place], [place] | | | | | | [address] | | | | | | | [...] [place] PCP: Jose Woods DO : 1960MRN: [id number] | | | Primary cardiology provider: Tiago Pleitez Primary | | | electrophysiology provider: Lizzy Mode of interrogation: Seen in | | | cardiac device clinic Device: Zilift Battery Longevity: 4 | | | years [...] high rate episodes: 6 | | | COACH OPERATOR. Total time 1.1 min Confirmed episodes of [...] |Atrial events: Atrial high rate episodes: 6 COACH OPERATOR. Total time 1.1 | | |min | [...] +--------+ +---------+--------+ | MEDICARE | MEDICA | [id number] | 12/30/19 | [phone] | | Medica | | | RE | | 04-Pre | 5 | | re | | | PART A | | sent | | | | | | AND B | | | | | | + +--------+ +--------+ +---------+--------+ | [employer] | MODA | [id number] | | [phone] | | Medica | | MEDICAID HMO [...] | | al/Fam | | 1961 | [phone] | [place] | | | [place] | | | 0 (Home) | [address] | + +--------+ +--------+ + + Advance Directives + + + + + | Type | Date Recorded | Patient | Explanation | | | | Supervisor Felling Bucking | | + + + + + | Power of | | | | | Slagger | | | | + + + + + | Advance | | | | | Directive | | | | + + + + +
--- OUTSIDE RECORDS SUMMARY | ~2019-07-27 | XMS | Encounter Summary ---
Demographics + + + | Address | [address] | | | [place] [address] | + + + | Home Phone | | + + + | Preferred Language | Unknown | + + + | Marital Status | | + + + | Gnosticism Affiliation | Unknown | + + + | Race | Unknown | + + + | Ethnic Group | Unknown | + + + Author + + + | Author | [facility] | | | and [place] | + + + | Organization | [facility] | | | [...] Team Providers + +------+ + | Care Rice Field Worker Name | Role | Phone | + +------+ + | Jose Woods DO | PCP | | + +------+ + Reason for Visit + + + | Reason | Comments | + + + | Device Check | [place] pacemaker in office device check | | (In-office) | | + + + Encounter Details +--------+ + + + + | Date | Type | Department | Care Team | Description | +--------+ + + + + | 06/14/ | Procedure | [facility] | Tiago Pleitez, | Cardiac pacemaker in | | 2019 | visit | [facility] [place] | MD Shaji FORRESTER | situ (Primary Dx) | | | | [address] | [place], [place] | | | | | [facility] | [address] | | | | | [place] | | | | | | [address] | | | | | | [phone] | | | +--------+ + + + [...] | | | | | | [facility] | | | | | | [address] | | | | | | | [...] [place] PCP: Jose Woods DO : 1960MRN: [id number] | | | Primary cardiology provider: Tiago [place] Primary | | | electrophysiology provider: None Mode of interrogation: Seen in | | | cardiac device clinic Device: [employer] Battery Longevity: 4 | | | years [...] high rate episodes: 6 | | | 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 Total time 1.1 min Confirmed episodes of [...] |Atrial events: Atrial high rate episodes: 6 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 Total time 1.1 | | |min | [...] + + | Performing | Address | City/State/[facility] | Phone Number | | Organization | | | | + +---------+ + + | [facility] | | | | + +---------+ + + documented in this encounter Visit Diagnoses + + | Diagnosis | + + | Cardiac pacemaker in situ - Primary | + + documented in this encounter"
--- OUTSIDE RECORDS SUMMARY | ~2019-07-27 | XMS | Encounter Summary ---
Demographics + + + | Address | [address] | | | [place] [address] | + + + | Home Phone [...] Author + + + | Author | [facility] | + + + | Organization | [facility] | + + + | Address [...] Team Providers + +------+ + | Care Apartment Rental Agent Name | Role | Phone | + [...] Pharmacy | | | | | | [address] | | | | | | [place], | | | | | | [place] [address] | | | | | | [phone] | | | +--------+ + + + [...]
--- OUTSIDE RECORDS SUMMARY | ~2019-07-27 | XMS | Encounter Summary ---
Demographics + + + | Address | [address] | | | [place] [address] | + + + | Home Phone | | + + + | Preferred Language | Unknown | + + + | Marital Status | | + + + | Cheondoism Affiliation | Unknown | + + + [...] Team Providers + +------+ + | Care Song Plugger Name | Role | Phone | + +------+ + PCP | Unavailable | + +------+ + Encounter Details +--------+ + + + + | Date | Type | Department | Care Team | Description | +--------+ + + + + | 05/09/ | Hospital | [facility] GENER[facility] IP | Conversion | Pain | | 2014 | Encounter | [address]VERSION [address] | Transaction, | | | | | [address] | Provider Unknown | | | | | [place], [place] | [phone] | | | | | [address] | | | | | | [phone] | | | +--------+ + + + [...] [place] | | | | | | [address] | | | | | | | [...]
--- OUTSIDE RECORDS SUMMARY | ~2019-07-27 | XMS | Clinical Summary ---
Demographics + + + | Address | [address] | | | [place] [address] | + + + | Home Phone | | + + + | Preferred Language | Unknown | + + + | Marital Status | Single | + + + | Mandaen Affiliation | NOD | + + + [...] Team Providers + +------+ + | Care Rural Carrier Associate Name | Role | Phone | + +------+ + | Jose Woods DO | PCP | | + +------+ + Source Comments SARAH is fully live on both EpicCare Ambulatory and EpicCare InPatient.[facility] Allergies + + + + [...] | | | | | | | [address] | | + +--------+ +--------+ + +--------+ | ORDER TO DELIVERY SUPERVISOR MEDICAID | ORDER TO DELIVERY SUPERVISOR | [id number] | 08/31/19 | | | [...] | 1961 | [phone] | [place] [address] | | | [place] | | | [...]
--- OUTSIDE RECORDS SUMMARY | ~2019-07-27 | XMS | Encounter Summary ---
Demographics + + + | Address | [address] | | | [place] [address] | + + + | Home Phone | | + + + | Preferred Language | Unknown | + + + | Marital Status | | + + + | Muslim Affiliation | Unknown | + + + | Race | Unknown | + + + | Ethnic Group | Unknown | + + + Author + + + | Author | [facility] | | | and [place] | + + + | Organization | [facility] | | | [...] Team Providers + +------+ + | Care Canvassing Manager Name | Role | Phone | + +------+ + | Jose Woods DO | PCP | | + +------+ + Reason for Visit + + + | Reason | Comments | + + + | Device Check | [place] pacemaker in office device check | | (In-office) | | + + + Encounter Details +--------+ + + + + | Date | Type | Department | Care Team | Description | +--------+ + + + + | 06/14/ | Procedure | [facility] | Tiago Pleitez, | Cardiac pacemaker in | | 2019 | visit | [facility] [place] | MD Shaji FORRESTER | situ (Primary Dx) | | | | [address] | [place], [place] | | | | | [facility] | [address] | | | | | [place] | | | | | | [address] | | | | | | [phone] | | | +--------+ + + + [...] | | | | | | 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 Total time 1.1 min Confirmed episodes of [...] |Atrial events: Atrial high rate episodes: 6 INTERIOR PLANT CARETAKER. Total time 1.1 | | |min | [...] + + | Performing | Address | City/State/[facility] Cent[facility]ode | Phone Number | | Organization | | | | + +---------+ + + | [facility] | | | | + +---------+ + + documented in this encounter Visit Diagnoses + + | Diagnosis | + + | Cardiac pacemaker in situ - Primary | + + documented in this encounter"
--- OUTSIDE RECORDS SUMMARY | ~2019-07-27 | XMS | Clinical Summary ---
Demographics + + + | Address | [address] | | | [place] [address] | + + + | Home Phone | | + + + | Preferred Language | Unknown | + + + | Marital Status | | + + + | Mosque Affiliation | Unknown | + + + | Race | Unknown | + + + | Ethnic Group | Unknown | + + + Author + + + | Author | [employer] (Historical as of | | | 04-16-19) | + + + | Organization | [facility] [employer] (Historical as of | | | 04-16-19) [...] Team Providers + +------+ + | Care Operations Trainer Name | Role | Phone | + [...] + + + + + + | Zuh-Vlpv-Fmsj | Other (See Comments) | Medium | [...] + + | Overview: Overview: | | [employer] | + + + + + [...] | | | | | | [place] [address] | | | | | | [phone] | | | | | | | [...] +------+-------+ + | MEDICARE | MEDICA | [id number] | | | [address] | | | RE | | | | [place] [address] | | | IP-OP | | | | | + +--------+ +------+-------+ + | MEDICAID | [employer] | [id number] | | | [address] | | | N | | | | [place] | | | [place] | | | | [address] | | | [employer] | | | | | + +--------+ [...] | | al/Fam | | 1961 | [phone] | [place] | | | [place] | | | [address] | [address] | + +--------+ +--------+ + +
--- OUTSIDE RECORDS SUMMARY | ~2019-07-27 | XMS | Encounter Summary ---
Demographics + + + | Address | [address] | | | [place] [address] | + + + | Home Phone | | + + + | Preferred Language | Unknown | + + + | Marital Status | Single | + + + | Christianity Affiliation | NOD | + + + | Race | White | + + + | Ethnic Group | Not or | + + + Author + + + | Author | [facility] | + + + | Organization | [facility] | + + + | Address [...] Team Providers + +------+ + | Care Naturopathic Doctor Name | Role | Phone | + [...] | | | | | [address] [place], | | | | | | [place] [address] | | | +--------+--------+ + + + [...]
--- OUTSIDE RECORDS SUMMARY | ~2019-07-27 | XMS | Encounter Summary ---
Demographics + + + | Address | [address] | | | [place] [address] | + + + | Home Phone | | + + + | Preferred Language | Unknown | + + + | Marital Status | | + + + | Confucianist Affiliation | Unknown | + + + | Race | Unknown | + + + | Ethnic Group | Unknown | + + + Author + + + | Author | [facility] | | | and [place] | + + + | Organization | [facility] | | [...] Team Providers + +------+ + | Care Day Care Worker Name | Role | Phone | + +------+ + PCP | Unavailable | + +------+ + Encounter Details +--------+ + + + + | Date | Type | Department | Care Team | Description | +--------+ + + + + | 05/09/ | Hospital | [facility] GENER[facility] IP | Conversion | Pain | | 2014 | Encounter | [address]VERSION [address] | Transaction, | | | | | [address] | Provider Unknown | | | | | [place], [place] | [phone] | | | | | [address] | | | | | | [phone] | | | +--------+ + + + [...] [place] | | | | | | [address] | | | | | | | [...]
--- OUTSIDE RECORDS SUMMARY | ~2019-07-27 | XMS | Clinical Summary ---
Demographics + + + | Address | [address] | | | [place] [address] | + + + | Home Phone | | + + + | Preferred Language | Unknown | + + + | Marital Status | | + + + | Congregational Affiliation | Unknown | + + + | Race | Unknown | + + + | Ethnic Group | Unknown | + + + Author + + + | Author | [facility] [facility] (Historical as of | | | 04-16-19) | + + + | Organization | [facility] (Historical as of | | | 04-16-19) [...] Team Providers + +------+ + | Care Artillery Specialist Name | Role | Phone | [...] + + + + + + | Usw-Jiph-Hgwe | Other (See Comments) | Medium | [...] + + | Overview: Overview: | | [employer] | + + + + + [...] | | | | | | [place] [address] | | | | | | [phone] | | | | | | | [...] +------+-------+ + | MEDICARE | MEDICA | [id number] | | | [address] | | | RE | | | | [place] [address] | | | IP-OP | | | | | + +--------+ +------+-------+ + | MEDICAID | [employer] | [id number] | | | [address] | | | N | | | | [place] | | | [place] | | | | [address] | | | [employer] N[employer]SE [employer]AFF | | | | | + +--------+ [...] | | al/Fam | | 1961 | [phone] | [place] | | | [place] | | | [address] | [address] | + +--------+ +--------+ + +
--- OUTSIDE RECORDS SUMMARY | ~2019-07-27 | XMS | Encounter Summary ---
Demographics + + + | Address | [address] | | | [place] [address] | + + + | Home Phone | | + + + | Preferred Language | Unknown | + + + | Marital Status | | + + + | Druze Affiliation | Unknown | + + + | Race | Unknown | + + + | Ethnic Group | Unknown | + + + Author + + + | Author | [facility] | | | and [place] | + + + | Organization | [facility] | | [...] Team Providers + +------+ + | Care Dianetic Counselor Name | Role | Phone | + [...] | | | | [place] | [phone] | | | | | [address] | | | | | | [phone] | | | +--------+ + + + [...] [place] | | | | | | [address] | | | | | | | | +--------+---------+ + + + documented as of this encounter Visit Diagnoses Not on filedocumented in this encounter"
[~2019-07-27 10:16] MED LIST changes: +LATUDA120 MG PO; +MILLIPRED5 MG PO
--- OUTSIDE RECORDS SUMMARY | 2019-07-27 10:20 | XMS ---
PreManage Notification: LYRIC SANTOS Security Players Club Representative Events No recent Security Events currently on file CRITERIA MET - [facility] Guidelines - PDMP CARE PROVIDERS MEDINA ELLIOTT Internal Medicine 03/08/2019-Current PHONE: Unknown Mitzy Deal Shaft Tender/Welfare Supervisor 08/31/2018-Current PHONE: [phone] Mitzy Deal Primary Care 08/31/2018-Current PHONE: [phone] Fior Marbella C Primary Care Current PHONE: Unknown or_praxis Case or Human Resources Professional Current PHONE: Unknown Guidelines Source: [facility] [place] Guidelines Date: 02/14/2019 Care Coordination: Receives mental health services with [facility].\T\nbsp; Please contact [facility] with mental health concerns.\T\nbsp; Gage/Hu Kelley:\T\nbsp; [phone]\T\nbsp; Louie:\T\nbsp; [phone]. Care History Medical/Surgical 03/08/2019 [facility] - PATIENT HAS AN APT WITH DR ELLIOTT ON 03/08/19. - PATIENT IS BEING REFERRED TO [facility] FOR CHRONIC PAIN MANAGEMENT - Patient is currently established with [facility]. If patient is seen in the ED during business hours. Please contact CHWs at [facility]. Care Recommendation: This patient has had 5 or more Emergency Department visits in the last 12 months.\T\nbsp; Patient requires education on the scope and purpose of the ED as an acute care provider not a Primary Care Provider and should not be utilized for chronic conditions.\T\nbsp; These are guidelines and the provider should exercise clinical judgment when providing care. E.D. VISIT COUNT (12 MO.) 4 VENKATA Alejandre TOTAL 4 NOTE: Visits indicate total known visits. 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 therapy 03/08/2019 09:21 [facility] [place] TYPE: Emergency COMPLAINT: - BACK PAIN DIAGNOSES: - Dorsalgia, unspecified 02/13/2019 08:51 [facility] [place] TYPE: Emergency COMPLAINT: - BACK PAIN/NO INJURY DIAGNOSES: - Bipolar disorder, unspecified - Latex allergy status - Low back pain - Allergy status to sulfonamides status - Other mcc (current) drug therapy - Allergy status to penicillin - Allergy to other foods - Anxiety disorder, unspecified - Presence of cardiac pacemaker - Allergy status to oth drug/meds/biol subst status INPATIENT VISIT TRACKING (12 MO.) 03/08/2019 23:21 [facility] TYPE: Internal Medicine DIAGNOSES: 36759. Progressive weakness. . Postlaminectomy syndrome, not elsewhere classified . Radiculopathy, lumbar region . Schizoaffective disorder, bipolar type . Incontinence without sensory awareness [id number]
[2019-07-27] MEDS ORDERED: OMEPRAZOLE20 MG PO (10:56)
[2019-07-27] MEDS ORDERED: ONDANSETRON HCL4 MG PO (10:56)
--- NOTE | 2019-07-27 17:43 | NUR ---
PT TO MEDSURG VIA STRETCHER MOVES SELF OVER TO BED. ORIENTED TO ROOM, CALL LIGHT PROVIDED, ICE CHIPS AT BEDSIDE. PT HAS DRY HEAVES FOR APPROX 20 SECONDS NO EMESIS, THEN RESTS WITHOUT FURTHER SYMPTOMS. ALERT AND COOPERATIVE.
--- NOTE | 2019-07-27 18:44 | NUR ---
NEW IV SITE ESTABLISHED PER PT REQUEST, WELL TOLERATED. NO FURTHER NAUSEA PT RESTING EYES CLOSED AFTER VISITORS X2 LEAVE
--- NOTE | 2019-07-27 19:48 | NUR ---
PATIENT RESTING QUIETLY ON HER RIGHT SIDE, RESPIRATIONS ARE REGULAR AND EVEN, EYES CLOSED, CALL LIGHT IN REACH.
--- NOTE | 2019-07-27 20:56 | NUR ---
PATIENT WAS RESTING QUIETLY IN BED, EASILY AWAKENS TO VOICE. PATIENT VOIDED JUST BEFORE SHE ARRIVED ON MED/SURG AT 1815. IV FLUSHES EASILY. EVENING MEDS GIVEN. NAUSEA UNDER CONTROL AND CALL LIGHT IN REACH.
--- NOTE | 2019-07-27 21:56 | NUR ---
PATIENT CONTINUES LAYING ON HER LEFT SIDE. RESPIRATIONS REGULAR AND EVEN, EYES CLOSED, AND CALL LIGHT IN REACH.
--- NOTE | 2019-07-27 23:36 | NUR ---
PATIENT HAD CALLED CONCERNED SHE HAD NOT GOTTEN HER NORMAL NIGHT TIME MEDS. TALKED WITH PATIENT AND SHE RELIIZED HER MEDS WERE PROBABLY NOT ORDERED FOR TONIGHT THERE WAS A GOOD POSSABILITY SHE WOULD THROW THEM UP. PATIENT SAID SHE DID NOT NEED ANYTHING AT THIS TIME, BUT DID HAVE A DRY HEAVE NOW AND THEN AND THAT SHE WOULD BE FINE WITHOUT HER MEDS FOR TONIGHT. LIGHTS ARE OFF AND CALL LIGHT IN REACH.
--- NOTE | 2019-07-28 01:42 | NUR ---
VS DONE AND PATIENT IS FEELING OK. VS STABLE PATIENT GOING TO TRY AND GO BACK TO SLEEP. CALL LIGHT IN REACH.
--- NOTE | 2019-07-28 03:21 | NUR ---
PATIENT RESTING ON HER RIGHT SIDE WITH REGULAR AND EVEN RESPIRARIONS.
--- NOTE | 2019-07-28 04:28 | NUR ---
PT CALLS TO SAY SHE THINKS HER IV IS LEAKING. NO LEAKAGE, SWELLING, REDNESS OR PAIN NOTED AT IV SITE. DRESSING DRY. FRANCISCO ZELAYA IN ROOM TO TAKE PT TO BR.
--- NOTE | 2019-07-28 04:39 | NUR ---
PATIENT HS REST WELL MOST OF THE NIGHT EXCEPT GETTTING UP TO USE THE REST ROOM. MAINLY EATING ICE CHIPS SHE IS ON CLEARS AND IS AFRAID TO ADVANCE FOR FEAR OF HER NAUSEA COMING BACK. VS STABLE A DRY HEAVE HERE OR THERE, BUT SHE HAS NOT WANTED ANY MEDICATION. PATIENT JUST WALKED TO THE BATHROOM AGAIN WITH 1PSBA AND CANE. BACK IN BED NOW TRY TO GET SOME MORE SLEEP. CALL LIGHT IN REACH.
--- NOTE | 2019-07-28 06:19 | NUR ---
HELPED PATIENT CHANGE INTO A FRESH GOWN AND FRESHEN UP FOR THE MORNING.
--- NOTE | 2019-07-28 07:21 | NUR ---
REPORT RECEIVED FROM SABRINA APARICIO. PT RESTING IN BED. PT REPORTS 5/10 "NORMAL BACK PAIN." AND DENIES NEED FOR PAIN MEDICATION AT THIS TIME. PT REQUESTS EYE MASK "SO I CAN SLEEP MORE." PROVIDED REQUESTED. PT DENIES NAUSEA AT THIS TIME. NO ADDITIONAL REQUESTS OR COMPLAINTS AT THIS TIME. CALL LIGHT WITHIN REACH.
--- NOTE | 2019-07-28 09:30 | NUR ---
MORNING ASSESSMENT AND MEDICATION DUE. THIS RN TO BEDSIDE. PT AWAKE AND VISITING WITH CALL CENTER CONSULTANT. PT REPORTS 6/10 PAIN. HEAT PACK GIVEN, PT ENCORUAGED TO GET UP AND AMBULATE. PT AGREES TO GET UP TO CHAIR AT THIS TIME AND AMBULATE "LATER THIS MORNING." PT DENIES NAUSEA. PT SIPPING ON BROTH AND JUICE. BOWEL SOUNDS HEARD. LUNG SOUNDS CLEAR. NO ADDITIONAL REQUESTS OR COMPLAINTS AT THIS TIME. CALL LIGHT WITHIN REACH.
--- NOTE | 2019-07-28 10:15 | NUR ---
ASSUMED CARE FROM SABRINA CARVAJAL. PT WAS AWAKE AND ALERT IN BED. NO NEEDS AT THIS TIME.
--- NOTE | 2019-07-28 10:49 | NUR ---
REPORT GIVEN TO SABRINA CHAPARRO WHO WILL BE TAKING OVER CARE OF PT. QUESTIONS ASKED AND ANSWERED. INTRODUCTIONS MADE.
--- NOTE | 2019-07-28 11:25 | NUR ---
SET PATIENT UP FOR A SHOWER. NOW SHE JUST CALLED TO TAKE A SHOWER.
--- NOTE | 2019-07-28 11:40 | NUR ---
MED REC COMPLETE. PATIENT AWARE THAT SHE WILL NEED TO HAVE THE LATUDA BROUGHT IN IF SHE CONTINUES THIS MEDICATION AN INPATIENT.
--- NOTE | 2019-07-28 13:42 | NUR ---
PT RESTING IN BED, FAMILY AT BEDSIDE. NO NEEDS AT THIS TIME. DENIES NAUSEA, REMINDED PT TO GO SLOW AND DRINK SMALL AMOUNTS.
--- NOTE | 2019-07-28 17:37 | NUR ---
PT GAVE THIS RN A BAG OF HER HOME MEDICATIONS. PHARMACY HAS LEFT FOR THE DAY. UNABLE TO GET BARCODE FOR LATUDA, WHICH IS SCHEDULED FOR TONIGHT AND NOT AVAILABLE THRU [facility]. IT SOFTWARE ENGINEER AND WATERPROOF BAG CUTTING MACHINE OPERATOR AWARE. ALL OTHER MEDICATIONS PLACED IN KITS.
--- NOTE | 2019-07-28 18:34 | NUR ---
PT RESTING COMFORTABLY THIS SHIFT. NO C/O NAUSEA OR PAIN. ADVANCED DIET TO FULL LIQUIDS, TOLERATING WELL. DC FLUIDS ONCE BAG IS COMPLETE. VOIDING WELL, ENCOURAGE PO INTAKE.
--- NOTE | 2019-07-28 19:42 | NUR ---
PATIENT RESTING QUIETLY, EYES CLOSED, RESPIRATIONS EVEN, LIGHTS DOWN, NOISE MACHINE ON. CALL LIGHT IN REACH.
--- NOTE | 2019-07-28 20:50 | NUR ---
CHARGE NURSE ROUNDING. IV PUMP BEEPING, ERROR CLEARED. pt REPORTED A HEADACHE, PRIMARY RN INFOMRED. NO FURTHER REQUESTS. WHITEBOARD UP TO DATE.
--- NOTE | 2019-07-28 20:59 | NUR ---
HELPED PT TO THE BATHROOM AND BACK TO BED. FRESH ICE WATER GIVEN. VITALS AND I&OS DONE AND CHARTED. BEDSIDE TABLE AND CALL LIGHT IN REACH.
--- NOTE | 2019-07-28 23:14 | NUR ---
PATIENT RESTING QUIETLY ON HER LEFT SIDE, EYE MASK ON, RESPIRATIONS REGULAR AND EVEN, LIGHTS OUT, CALL LIGHT IN REACH.
--- NOTE | 2019-07-29 01:26 | NUR ---
FRESH ICE WATER GIVEN. STOOD BY SHE WENT INTO THE BATHROOM AND BACK TO BED.
--- NOTE | 2019-07-29 01:38 | NUR ---
PATIENT HAS NOT CALLED FOR ANYTHING, LOOKED IN ON HER AND SHE WAS CHECKING HER PHONE FOR SOMETHING AND DID NOT REQUEST ANYTHING. CALL LIGHT IN REACH.
--- NOTE | 2019-07-29 04:20 | NUR ---
PATIENT WOKE UP AND WAS SWEATING, ARIC BENNETT HELPED HER GET CLEANED UP AND GOWN CHANGED. PATIENT HAS BEEN SLEEPING WELL AND NO MORE HEADACHE COMPLAINTS.
--- NOTE | 2019-07-29 06:11 | NUR ---
PATIENT SAID THIS HAS BEEN THE WORSE NIGHTS SLEEP SHE HAS HAD SINCE SHE HAS BEEN HERE, DIDN'T REALLY EXPOUND ON ANY REASON. ONLY VOIDED 200MLS THIS SHIFT. AWARE OF DECREASED URINE OUTPUT. CALL LIGHT IS IN REACH.
--- NOTE | 2019-07-29 06:18 | NUR ---
PATIENT SLEPT WELL MOST OF THE SHIFT, TAY TAKEN CARE OF WITH TYLENOL AT BEGINING OF THE SHIFT. PATIENT HAS HAD NO NAUSEA AND VOMITING. CURRENTLY RESTING QUIETLY WITH EYE MASK ON AND REGULAR RESPERATIONS. CALL LIGHT IN REACH.
--- NOTE | 2019-07-29 07:10 | NUR ---
Pt resting in semifowlers position in bed alert and oriented call light and h2o in reach. No needs or concerns voiced. Bedside report received from SABRINA Petty.
--- NOTE | 2019-07-29 09:40 | NUR ---
PT RESTING IN SEMIFOWLERS POSITION IN BED, STATES "I ATE A REGULAR BREAKFAST THIS MORNING AND I FEEL GREAT WITH NO NAUSEA. I FEEL LIKE I'M REAADY TO GO HOME TODAY". AM ASSESSMENT COMPLETED. MEDS ADMINISTERED -SEE EMAR. CALL LIGHT AND H2O IN REACH.
--- NOTE | 2019-07-29 10:15 | NUR ---
Pt states she is feeling better today. Plans on going home with son who is her state paid pcg. He does all the cooking and cleaning. She uses a cane, but denies other DME use. She is disabled due to DDD in her back with 3 surgeries and no relief.
--- NOTE | 2019-07-29 11:10 | NUR ---
PT UP AMBULATING IN HALLS, REQUESTS TO BE WEIGHED, PT BACK TO ROOM AND BED WEIGHT TAKEN. PT VOICED INTEREST IN DISCHARGING SOON. WILL NOTIFY MD OF PT'S REQUEST. CALL LIGHT AND H2O IN REACH. NO FURTHER NEEDS OR CONCERNS VOICED.
[2019-07-29] MEDS ORDERED: OMEPRAZOLE20 MG PO (12:36)
== END 2019-07-29 14:00 | disposition home or self-care (01) ==
LOC: ED 10:16 → MS 10:18
PROVIDERS: ADMIT Internal Medicine
DX: K29.00 Acute gastritis without bleeding (principal); K21.0 Gastro-esophageal reflux disease with esophagitis; G89.29 Other chronic pain; E78.00 Pure hypercholesterolemia, unspecified; F31.9 Bipolar disorder, unspecified; F41.9 Anxiety disorder, unspecified; G47.00 Insomnia, unspecified; J44.9 Chronic obstructive pulmonary disease, unspecified; M19.90 Unspecified osteoarthritis, unspecified site; E86.0 Dehydration; Z79.899 Other long term (current) drug therapy; Z87.891 Personal history of nicotine dependence; Z95.0 Presence of cardiac pacemaker; Z88.0 Allergy status to penicillin; Z88.2 Allergy status to sulfonamides; Z88.8 Allergy status to other drugs, medicaments and biological substances; Z91.040 Latex allergy status
CPT/HCPCS: 74177; 80053; 81001; 83690; 83735; 85025; 96361; 96372; 96376; 99285-25; C9113; G0378; J1650; J2405; J2550; J7030; J7121; Q9967

== ENCOUNTER 2021-12-25 06:48 | Day surgery (SDC) | payer MEDICARE, OTHER ==
[~2021-12-25] VITALS: Ht 177.8 cm; Wt 84.1 kg
[~2021-12-25 06:48] MED LIST changes: +AMITRIPTYLINE H25 MG PO; +BIOTIN1 M1 PO; +METFORMIN HCL500 M3 PO; +MULTIPLE VITAM1 EACH PO; +OMEPRAZOLE20 MG PO; +ONDANSETRON HCL4 MG PO; +PROVENTIL HFA6.7 GM INH; +VITAMIN D31250 MC1 PO; +VITAMIN D3250 MCG PO; +VRAYLAR1.5 MG PO
--- NOTE | 2021-12-25 14:05 | NUR ---
12/25/21 1405 Caprice Olson 1352-PT TO PACU IN SUPINE POSITION. EYES CLOSED DOES NOT RESPOND TO VERBAL OR TACTILE STIMULI. ORAL AIRWAY REMAINS IN PLACE. JAW THRUST REQUIRED TO PROMOTE OPTIMAL VENTILLATIONS. SPO2 >95% ON 10 L O2 VIA SIMPLE MASK. 1402- PT WITHDRAWS FROM PAIN AND FOLLOWS COMMANDS. ORAL AIRWAY DC'D. BREATHING EASY AND UNLABORED. SPO2 >95% ON 10L O2 VIA SIMPLE MASK. HOB ELEVATED.
--- NOTE | 2021-12-25 15:11 | NUR ---
1500: PT ARRIVES TO UNIT VIA STRETCHER FROM PACU. DROWSY ON ARRIVAL BUT EASILY AROUSABLE AND ANSWERS QUESTIONS APPROPRIATELY. VSS, RESP EVEN AND UNLABORED, O2 SAT STABLE ON 2L VIA NC. OCC WHEEZES NOTED, RESOLVED WITH COUGHING AND PT ENCD TO CONT TO DO SO. PT VOICES UNDERSTANDING. DRESSINGS X3 TO RIGHT BREAST WITH SMALL AMOUNT OF RED DRAINAGE. LATANYA DRAINING SANGUINOUS FLUID. SHELL PO INTAKE WELL, ICE WATER AND CRACKERS PROVIDED. REPORTING SHELL PAIN LEVEL AT THIS TIME, 11/07. POC DISCUSSED AND PT AGREEABLE. TC PLACED TO PT'S FRIEND REQUESTED AND UPDATE PROVIDED. NO NEEDS VOICED AT THIS TIME, CALL LIGHT WITHIN REACH
--- NOTE | 2021-12-25 16:16 | NUR ---
1605: PT AWAKE AND ORIENTED AND HOLDING APPROPRIATE CONVERSATION WITH FRIEND AT THE BEDSIDE. VSS, RESP EVEN AND UNLABORED. PT TRIALLED OFF OF OXYGEN, O2 SATS REMAIN STABLE >95%. REMAINS ON RA. NO CHANGE TO DRESSINGS X3. LATANYA CONTS TO DRAIN SEROSANGUINOUS FLUID. PT REPORTING INCREASED PAIN LEVEL, 5/10 AND REQUESTING RX. ADMINISTERED ORDERED, SEE PT EMAR. CONTS TO SHELL PO INTAKE AND DENY NAUSEA. TO TRY BR WHEN PAIN BECOMES MORE MANAGEABLE. NO FURTHER NEEDS, CALL LIGHT WITHING REACH
--- NOTE | 2021-12-25 17:13 | NUR ---
1635: PT REPORTS DESIRE TO DC. SCDS REMOVED, DANGLED AT THE BEDSIDE. SHELL WELL. DENIES DIZZINESS AND SOB. AMBULATES TO BR WITH STANDBY ASSIST FROM THIS RN. SUCCESSFUL FIRST POSTOP VOID, 500MLS. BACK TO ROOM 5. DRAIN DRESSING REINFORCED AND DRAIN MANAGEMENT DISCUSSED WITH PT. PT VOICES UNDERSTANDING. DRESSED WITH ASSISTANCE FOR DC. SL REMOVED WITH CATH TIP INTACT AND PRESSURE APPLIED TO SITE, WNL. DC INSTRUCTIONS PROVIDED AND DISCUSSED. PT VOICES UNDERSTANDING AND DENIES QUESTIONS AND CONCERNS AT THIS TIME. 1655: PT WHEELED OFF OF UNIT FOR DC IN BY THIS RN. TRANSFERS INTO VEHICLE INDEPENDENTLY AND APPROPRIATELY. NO PHYSICAL S/S OF DISTRESS AT THIS TIME
--- NOTE | 2021-12-26 07:57 | OR ---
[facility] [address] [place], [place] [address] Signed DATE OF OPERATION: 12/25/2021 SURGEON: Sánchez Garcia MD PREOPERATIVE DIAGNOSIS: Right breast cancer (10 o'clock position). POSTOPERATIVE DIAGNOSIS: Right breast cancer (10 o'clock position). PROCEDURES: 1. Right breast lumpectomy and subtotal right axillary dissection. 2. Placement of right axilla drain. 3. Injection of methylene blue. ESTIMATED BLOOD LOSS: None. INDICATIONS: Lyric is a 61-year-old female, who has been following along with her annual mammograms. She said her entire family has breast cancer. This year, a new lesion showed up in the right breast around 7 or 10 mm in diameter out of the 10 o'clock position. It is fairly deep near the chest wall. It is about 10 cm from her nipple areolar complex. However, she does have very large pendulous breasts. Of course, the core needle biopsy came back with the invasive carcinoma. She was asked to see me with respect to the above. She has never had a previous breast biopsy. I gave her a brochure in the office on breast biopsies and surgery. We looked at that very carefully. I explained her the idea of the wire localization with lumpectomy as well as the sentinel lymph node biopsy. Unfortunately, she is allergic to sulfa and therefore cannot have the technetium sulfur colloid radiotracer. Therefore, we utilized our methylene blue only. She understands the expected intraop and postop course. She is aware that 2 incisions will be made. We may or may not use a drain. There is risk to the surgery including, but not limited to bleeding, infection, scarring, change in contour of the skin as well as possible need for additional surgeries based on the pathology results. In addition, she is very aware of the concept of radiation and chemotherapy. She had expressed understanding and wished to proceed. DESCRIPTION OF PROCEDURE: I met with Lyric and her friend in our preop area. Our nurse is with us. We could easily identify the right breast and the needle wire. The breast was then marked Electronically Signed By: SÁNCHEZ GARCIA MD 12/26/21 0757 PATIENT NAME: LYRIC SANTOS OPERATIVE REPORT DATE OF : 58 REPORT #: [id number] PHYSICIAN: SÁNCHEZ GARCIA MD PCP: JOSE ELLIOTT DO REPORT IS CONFIDENTIAL AND NOT TO BE RELEASED WITHOUT AUTHORIZATION [facility] [address] [place], [place] [address] Signed appropriately. After this, Lyric was taken to the operating room and placed in the supine position under general anesthesia. She was given preoperative antibiotics along with subcutaneous heparin. SCDs were utilized. The right breast, chest wall, and axilla were prepped and draped in the usual sterile fashion. We utilized a standard transverse incision on the edge of the inframammary hairline. This was carried in bluntly and with the cautery. We searched for quite some time and found no blue dye whatsoever in her axilla. We therefore performed a subtotal axillary dissection. We did not go quite up to the axillary vein and artery. We did not go quite all the way back to the thoracodorsal nerve or the long thoracic nerve. We dissected all that tissue down all the way down inferiorly, almost right out to the latissimus dorsi muscle. The entire block of tissue was then sent down to the Pathology Department for evaluation. The wound was irrigated and suctioned out until clear. Local anesthetic was injected in the wound. We then turned our attention to the wire coming out at the lateral portion of her breast. The mammograms have been reviewed. We made a curvilinear incision to match the lines of Langerhans along her breast. We went down around the wire with the help of the cautery and took out that entire area en bloc. The lesion was then appropriately marked with silk sutures. There was a little indurated tissue on the superior and medial side of that area on the edge of that breast, so we took that out as well as additional tissue. In the meantime, the radiologist called back to tell us that the lesion was within the specimen. We irrigated the wound until clear. We injected local anesthetic into that wound. We then turned our attention back to the axilla. We placed a #7 flat Walter drain in the base of that wound and brought it out laterally on the chest wall and held in place with 2-0 nylon suture. The wound was closed in layers with 3-0 Monocryl suture. The skin was reapproximated with a running 5-0 fast absorbing plain gut suture. We then closed the wound on the breast in layers and again the skin was brought together with a running 5-0 fast absorbing plain gut suture. Dry gauze and tape were applied to both areas. Lyric was then awakened from anesthesia, extubated in the OR, and taken to recovery room in stable condition. Sánchez Garcia MD ALB/MODL /[id number] cc: Jose Elliott DO Electronically Signed By: SÁNCHEZ GARCIA MD 12/26/21 0757 PATIENT NAME: LYRIC SANTOS OPERATIVE REPORT DATE OF : 58 REPORT #: [id number] PHYSICIAN: SÁNCHEZ GARCIA MD PCP: JOSE ELLIOTT DO REPORT IS CONFIDENTIAL AND NOT TO BE RELEASED WITHOUT AUTHORIZATION [address] [address] Signed Sánchez Garcia MD Patient Chart Copies: JOSE ELLIOTT ANDREW L MD ~ Electronically Signed By: SÁNCHEZ GARCIA MD 12/26/21 0757 PATIENT NAME: LYRIC SANTOS OPERATIVE REPORT DATE OF : 58 REPORT #: [id number] PHYSICIAN: SÁNCHEZ GARCIA MD PCP: JOSE ELLIOTT DO REPORT IS CONFIDENTIAL AND NOT TO BE RELEASED WITHOUT AUTHORIZATION
--- NOTE | 2021-12-27 16:39 | PATH ---
[facility] [address] [facility] [place], [place] [address] Signed SPECIMEN(S): A RIGHT AXILLA SPECIMEN(S): B RIGHT BREAST LUMPECTOMY SPECIMEN(S): C ADDITIONAL RIGHT BREAST TISSUE SPECIMEN SOURCE: A. RIGHT AXILLA B. RIGHT BREAST LUMPECTOMY C. ADDITIONAL RIGHT BREAST TISSUE CLINICAL HISTORY: A-C. Right breast cancer. FINAL PATHOLOGIC DIAGNOSIS: A. Lymph nodes, right axilla, excision: - Six lymph nodes, negative for metastatic carcinoma (0/6) B. Breast, right, lumpectomy: - Benign breast tissue with biopsy site changes and fibrocystic changes. - No invasive or in situ carcinoma identified. C. 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 - Histologic grade: - Tubular formation score: 1 of 3. - Nuclear grade score: 1 of 3. - Mitotic score: 1 of 3. - Overall grade: 1 of 3 (total score 3 of 9). - Tumor size: 6 mm. - Ductal carcinoma in situ: Absent. - Lymph vascular invasion: Absent. - Treatment effect: No known presurgical therapy. - Margins: Positive for invasive carcinoma (undesignated margin), see comment. - Regional lymph nodes (includes part A): All regional lymph nodes negative for tumor involvement. - Total number of lymph nodes examined: 6. - Additional pathologic findings: Biopsy site changes. - Ancillary studies: Please refer to studies previously performed ([id number]) which were reported as ER positive, NJ positive, HER2 negative by IHC. - Pathologic stage classification: pT1b pN0. PATIENT NAME: LYRIC SANTOS PATHOLOGY DATE OF : 58 REPORT #: [id number] PHYSICIAN: JARROD PATHOLOGY PCP: MEDINA ELLIOTT DO REPORT IS CONFIDENTIAL AND NOT TO BE RELEASED WITHOUT AUTHORIZATION [facility] [address] [place] [id number] Signed COMMENT: The specimen in part C is received unoriented and undesignated, thus the anatomic orientation of the positive margin is indeterminate. Correlation with operative findings is needed. As part of [employer]' Quality Improvement Program, this case was reviewed by another member of our pathology staff. BRP:NRT:cml:C1NR MICROSCOPIC EXAMINATION: Histologic sections of all submitted blocks are examined by light microscopy. These findings, together with the gross examination, support the pathologic diagnosis. GROSS DESCRIPTION: Three specimens are received in three containers, labeled "Camron." A. The specimen, labeled "Camron, A," is received in formalin and consists of an aggregate of yellow lobulated adipose tissue (9.2 x 6.5 x 2.2 cm), within which six possible lymph nodes are identified ranging from 0.5-0.7 cm in greatest dimension. The lymph nodes are submitted entirely in A1A2. B. The specimen, labeled "Camron, B," is received in formalin and consists of is an oriented lumpectomy (8.1 cm anterior to posterior by 6.2 cm superior to inferior by 2.1 cm medial to lateral). There is a specimen that enters the anterolateral aspect. The specimen is inked as follows: Blue = superior Green = inferior Black = posterior Yellow = anterior Red = medial [place] = lateral The specimen is serially sectioned from anterior to posterior into 13 levels to reveal a large amount of yellow lobulated adipose tissue with a minimal amount of fibrous tissue. Within levels 9 and 10 is a focus of hemorrhage (approximately 1.0 x 0.6 x 0.5 cm), however no biopsy clip is identified. Adjacent to this area, abutting the medial margin, is a pale yellow nodule (0.8 x 0.3 x 0.3 cm) within levels 10 and 11. This focus is greater than 1.0 cm from the remaining margins. Gross photographs are taken. Mail Reader sections are submitted as follows: PATIENT NAME: LYRIC SANTOS PATHOLOGY DATE OF : 58 REPORT #: [id number] PHYSICIAN: JARROD POTTER PCP: MEDINA ELLIOTT DO REPORT IS CONFIDENTIAL AND NOT TO BE RELEASED WITHOUT AUTHORIZATION [facility] [address] [place], [place] [address] Signed Cassette summary B1 merchandiser retail representative anterior margin, perpendicular B2-B3 level 8, superior half bisected lateral to medial adjacent to area of hemorrhage B4-B6 level 9, trisected superior to inferior B7-B9 level 10, trisected superior to inferior (nodule within the B8) B10-B12 level 11, trisected superior to inferior (nodule within B11) B13 merchandiser retail representative posterior margin, perpendicular Cold ischemic time: [cannot be calculated due to insufficient information] The specimen was fixed in formalin. The time the fixation cannot be determined due to no designated time on the requisition or container labeled. It is presumed that the specimen has been in formalin greater than at least 12 hours due to the arrival in the gross room and the time of grossing. C. The specimen, labeled "Justin Santos," is received in formalin and consists of an aggregate of yellow lobulated, cauterized adipose tissue (3.7 x 3.6 x 1.0 cm). The specimen is entirely inked blue. The specimen is serially sectioned and composed of yellow lobulated adipose tissue with a 0.9 x 0.8 x 0.4 cm focus of dense fibrous tissue. The specimen is submitted entirely as follows: Cassette summary C1 end, perpendicular C2-C5 central sections C6- opposite end, perpendicular KD (under the direct supervision of a pathologist) The Gross Description was prepared using a voice recognition system. The report was reviewed for accuracy; however, sound-alike word errors, addition and/or deletions may occur. If there is any question about this report, please contact Client Services. PERFORMING LABORATORY: The technical component was performed by [facility] [address] (CLIA# [id number]). [facility], [address] [place] [address] (CLIA# [id number]). Diagnostician: Chase See MD Pathologist Electronically Signed 12/27/2021 PATIENT NAME: LYRIC SANTOS PATHOLOGY DATE OF : 58 REPORT #: [id number] PHYSICIAN: JARROD PATHOLOGY PCP: MEDINA ELLIOTT DO REPORT IS CONFIDENTIAL AND NOT TO BE RELEASED WITHOUT AUTHORIZATION [facility] [address] [place], [place] [address] Signed Copies: ~ PATIENT NAME: LYRIC SANTOS PATHOLOGY DATE OF : 58 REPORT #: [id number] PHYSICIAN: JARROD PATHOLOGY PCP: MEDINA ELLIOTT DO REPORT IS CONFIDENTIAL AND NOT TO BE RELEASED WITHOUT AUTHORIZATION
== END 2021-12-25 16:55 | disposition home or self-care (01) ==
LOC: OPS 06:48 → DS 06:48 → EDSTATUS 08:00 → MAM 08:00 → OPS 08:00
PROVIDERS: ATTEND Colon & Rectal Surgery
PROC: 0HBT0ZX Excision of Right Breast, Open Approach, Diagnostic (ICD-10-PCS; principal; 2021-12-25 11:30)
PROC: 07B50ZX Excision of Right Axillary Lymphatic, Open Approach, Diagnostic (ICD-10-PCS; 2021-12-25 11:30)
DX: C50.211 Malignant neoplasm of upper-inner quadrant of right female breast (principal); C50.411 Malignant neoplasm of upper-outer quadrant of right female breast; K21.9 Gastro-esophageal reflux disease without esophagitis; Z80.3 Family history of malignant neoplasm of breast; Z87.891 Personal history of nicotine dependence; Z88.0 Allergy status to penicillin; Z88.2 Allergy status to sulfonamides; Z88.8 Allergy status to other drugs, medicaments and biological substances; Z91.040 Latex allergy status
CPT/HCPCS: 19281; 76098; 88305; 88307; 88309; J0330; J0690; J1100; J1644; J1885; J2250; J2405; J2704; J2765; J3010; J7121; Q9968

== ENCOUNTER 2021-12-29 15:46 | Emergency (ER) | payer MEDICARE, OTHER ==
[~2021-12-29] VITALS: Ht 177.8 cm; Wt 83.9 kg
== END 2021-12-29 16:25 | disposition home or self-care (01) ==
LOC: ED 15:46
DX: K59.03 Drug induced constipation (principal); T40.2X5A Adverse effect of other opioids, initial encounter; Z48.01 Encounter for change or removal of surgical wound dressing; E78.00 Pure hypercholesterolemia, unspecified; G47.00 Insomnia, unspecified; J44.9 Chronic obstructive pulmonary disease, unspecified; Z87.891 Personal history of nicotine dependence; Z88.0 Allergy status to penicillin; Z88.2 Allergy status to sulfonamides; Z91.040 Latex allergy status; Z88.8 Allergy status to other drugs, medicaments and biological substances; Z79.899 Other long term (current) drug therapy; Z79.84 Long term (current) use of oral hypoglycemic drugs
CPT/HCPCS: 99283

== ENCOUNTER 2022-05-12 14:03 | Emergency (ER) | payer MEDICARE, OTHER ==
[~2022-05-12] VITALS: Ht 177.8 cm; Wt 89.1 kg
--- OUTSIDE RECORDS SUMMARY | 2022-05-12 14:06 | XMS ---
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 - Patient with suicidal and/or homicidal ideations eloped. - Patient eloped with IV in place. Details: PATIENT LWBS CRITERIA MET - [facility] CARE PROVIDERS MEDINA ELLIOTT Internal Medicine 03/08/2019-Current PHONE: Unknown Mitzy Deal Coding Clerks Supervisor/Professor Of Criminal Justice 01/29/2022-Current PHONE: [phone] Care Guidelines exist for the following facilities: [facility] ( 10/15/2020 ) Care History Medical/Surgical 07/29/2019 [facility] Patient just saw Dr. Elliott on 07/25/2019 for vomiting and was advised if it continues to go to ER.\T\nbsp; 03/08/2019 [facility] - PATIENT HAS AN APT WITH DR ELLIOTT ON 03/08/19. - PATIENT IS BEING REFERRED TO [facility] FOR CHRONIC PAIN MANAGEMENT - Patient is currently established with [facility]. If patient is seen in the ED during business hours. Please contact CHWs at [facility]. Care Recommendation: This patient has had [...] providing care. E.D. VISIT COUNT (12 MO.) 3 [facility]. TOTAL 3 NOTE: Visits indicate total known visits. ED/UCC VISIT TRACKING (12 MO.) 05/12/2022 14:03 [facility] TYPE: Emergency COMPLAINT: - FLU SYMPTOMS 02/06/2022 07:06 [facility] TYPE: Emergency COMPLAINT: - POST OP WOUND CARE 12/29/2021 15:47 [facility] TYPE: Emergency COMPLAINT: - POST OP PROBLEM DIAGNOSES: - Chronic obstructive pulmonary disease, unspecified - Insomnia, unspecified - Pure hypercholesterolemia, unspecified - [facility] (current) use of oral hypoglycemic drugs - Allergy status to penicillin - Adverse effect of other opioids, initial encounter - Allergy status to sulfonamides - Encounter for change or removal of surgical wound dressing - Drug induced constipation - Other extermination inspector (current) drug therapy - Allergy status to other drugs, medicaments and biological substances - Latex allergy status - Personal history of nicotine dependence INPATIENT VISIT TRACKING (12 MO.) No inpatient visits to display in this time frame [email or web address]
[2022-05-12] MEDS ORDERED: VENTOLIN HFA18 GM INH (17:12)
[2022-05-12] MEDS ORDERED: NASAL DECONGEST30 MG PO (17:12)
== END 2022-05-12 17:29 | disposition home or self-care (01) ==
LOC: ED 14:03
DX: U07.1 COVID-19 (principal); E78.00 Pure hypercholesterolemia, unspecified; J44.9 Chronic obstructive pulmonary disease, unspecified; Z87.891 Personal history of nicotine dependence; Z88.0 Allergy status to penicillin; Z88.2 Allergy status to sulfonamides; Z88.8 Allergy status to other drugs, medicaments and biological substances; Z91.040 Latex allergy status; Z79.899 Other long term (current) drug therapy; Z79.84 Long term (current) use of oral hypoglycemic drugs
CPT/HCPCS: 87502; 99283; U0003

== ENCOUNTER 2023-07-01 05:43 | Emergency (ER) | payer MEDICARE, OTHER ==
[~2023-07-01] VITALS: Ht 177.8 cm; Wt 85.7 kg
[~2023-07-01 05:43] MED LIST changes: +CYCLOBENZAPRINE10 MG PO; +NASAL DECONGEST30 MG PO; +VENTOLIN HFA18 GM INH
--- OUTSIDE RECORDS SUMMARY | 2023-07-01 05:47 | XMS ---
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 - Patient with suicidal and/or homicidal ideations eloped. - Patient eloped with IV in place. Details: PATIENT LWBS CRITERIA MET - [facility] CARE PROVIDERS Mitzy Deal Supervisor Sewing Department/Vc++ Developer 01/29/2023-Current PHONE: [phone] MEDINA ELLIOTT Internal Medicine 03/08/2019-Current PHONE: Unknown -[place]- Dentist: Computer Systems Designer [facility] PHONE: [phone] Care Guidelines exist for the following facilities: [facility] ( 10/15/2020 ) Care History Medical/Surgical 07/29/2019 [facility] [place] [facility] Patient just saw Dr. Elliott on 07/25/2019 for vomiting and was advised if it continues to go to ER.\T\nbsp; 03/08/2019 [facility] [place] [facility] - PATIENT HAS AN APT WITH DR ELLIOTT ON 03/08/19. - PATIENT IS BEING REFERRED TO [facility] FOR CHRONIC PAIN MANAGEMENT - Patient is currently established with [facility]. If patient is seen in the ED during business hours. Please contact CHWs at [facility]. Care Recommendation: This patient has had 5 [...] providing care. E.D. VISIT COUNT (12 MO.) 2 [facility]. TOTAL 2 NOTE: Visits indicate total known visits. ED/UCC VISIT TRACKING (12 MO.) 07/01/2023 05:44 [facility] TYPE: Emergency COMPLAINT: - N/V 12/19/2022 06:03 [facility] TYPE: Emergency COMPLAINT: - NECK/SHOULDER/ARM PAIN DIAGNOSES: - Allergy status to other drugs, medicaments and biological substances - Allergy status to penicillin - Allergy status to sulfonamides - Cervicalgia - Latex allergy status - detention (current) use of oral hypoglycemic drugs - Other jail (current) drug therapy - Pain in right arm - Pain in right shoulder - Personal history of nicotine dependence INPATIENT VISIT TRACKING (12 MO.) No inpatient visits to display in this time frame [email or web address]
[2023-07-01 06:13] LABS: BILIRUBIN, URINE NEGATIVE (negative); BLOOD/HGB, URINE NEGATIVE (Negative); KETONE, URINE NEGATIVE (Negative); LEUK ESTERASE, URINE NEGATIVE (negative); NITRITE, URINE NEGATIVE (negative); PH, URINE 5.5 (5-7)
[2023-07-01 06:13] LABS: BASOPHILS 0.7 % (0-2); EOSINOPHILS 3.6 % (0-6); HEMATOCRIT 37.5 % (35.0-50.0); HEMOGLOBIN 12.2 g/dL (12.0-18.0); LYMPHOCYTES 14.7 % (24-44); MCH 29.8 (27-36); MCHC 32.5 g/dl (30-36); MCV 91.5 fl (81-99); MONOCYTES 6.7 % (0-12); NEUTROPHILS 74.3 % (39-80); PLATELET COUNT 302 K/uL (140-440); RBC 4.09 M/ul (4.3-5.7); RDW 13.3 (10.5-15.0)
[2023-07-01 06:22] LABS: ALBUMIN 3.3 g/dL (3.4-5.0); ALBUMIN/GLOBULIN RATIO 0.92 (1.1-2.4); ANION GAP 15.6 (7-21); BILIRUBIN, TOTAL 0.3 ng/dL (0.2-1.0); BUN/CREATININE RATIO 9.27 (6.0-28.6); CALCIUM 9.1 mg/dL (8.5-10.1); CREATININE, SERUM 0.97 mg/dL (0.55-1.02); POTASSIUM 3.6 mmol/L (3.5-5.1); PROTEIN, TOTAL 6.9 g/dL (6.4-8.2)
[2023-07-01] MEDS ORDERED: PROCHLORPERAZIN10 MG PO (09:17)
[2023-07-01] MEDS ORDERED: ONDANSETRON ODT8 MG PO (09:30)
[2023-07-01 09:50] VITALS: BP 122/75
== END 2023-07-01 09:50 | disposition home or self-care (01) ==
LOC: ED 05:43
PROVIDERS: Emergency Medicine
DX: R11.2 Nausea with vomiting, unspecified (principal); R10.9 Unspecified abdominal pain; J44.9 Chronic obstructive pulmonary disease, unspecified; F31.9 Bipolar disorder, unspecified; F20.9 Schizophrenia, unspecified; F41.9 Anxiety disorder, unspecified; Z98.890 Other specified postprocedural states; Z95.810 Presence of automatic (implantable) cardiac defibrillator; Z87.891 Personal history of nicotine dependence; Z88.0 Allergy status to penicillin; Z88.2 Allergy status to sulfonamides; Z88.8 Allergy status to other drugs, medicaments and biological substances; Z91.040 Latex allergy status; Z79.899 Other long term (current) drug therapy
CPT/HCPCS: 36415; 70450; 74177; 80053; 81003; 82150; 83690; 85025; 96361; 96375; 99284-25; J1170; J1790; J2405; J2765; J7030; Q9967

== ENCOUNTER 2023-09-07 04:01 | Emergency (ER) | payer MEDICARE, OTHER ==
[~2023-09-07] VITALS: Ht 177.8 cm; Wt 81.2 kg
[~2023-09-07 04:01] MED LIST changes: +ONDANSETRON ODT8 MG PO; +PROCHLORPERAZIN10 MG PO
[2023-09-07] MEDS ORDERED: TRAMADOL HCL50 MG PO (04:56)
[2023-09-07 05:05] VITALS: BP 146/90
== END 2023-09-07 05:06 | disposition home or self-care (01) ==
LOC: ED 04:01
DX: S43.401A Unspecified sprain of right shoulder joint, initial encounter (principal); J44.9 Chronic obstructive pulmonary disease, unspecified; E78.00 Pure hypercholesterolemia, unspecified; F20.9 Schizophrenia, unspecified; X50.1XXA Overexertion from prolonged static or awkward postures, initial encounter; Z88.0 Allergy status to penicillin; Z88.2 Allergy status to sulfonamides; Z88.8 Allergy status to other drugs, medicaments and biological substances; Z91.040 Latex allergy status; Z91.018 Allergy to other foods; Z87.891 Personal history of nicotine dependence; Z79.84 Long term (current) use of oral hypoglycemic drugs; Z79.899 Other long term (current) drug therapy; Z79.51 Long term (current) use of inhaled steroids
CPT/HCPCS: 73030; 96372; 99283-25; J1885

== ENCOUNTER 2024-03-16 04:32 | Emergency (ER) | payer MEDICARE, OTHER ==
[~2024-03-16] VITALS: Ht 177.8 cm; Wt 76.0 kg
[2024-03-16] MEDS ORDERED: DOXYCYCLINE HY100 MG PO (04:58)
[2024-03-16] MEDS ORDERED: DOXYCYCLINE HYCLATE 100 MG CAP PO ONE (05:00)
[2024-03-16 05:12] VITALS: BP 119/69
== END 2024-03-16 05:12 | disposition home or self-care (01) ==
LOC: ED 04:32
DX: T81.41XA Infection following a procedure, superficial incisional surgical site, initial encounter (principal); Y83.4 Other reconstructive surgery as the cause of abnormal reaction of the patient, or of later complication, without mention of misadventure at the time of the procedure; J44.9 Chronic obstructive pulmonary disease, unspecified; Z95.0 Presence of cardiac pacemaker; Z87.891 Personal history of nicotine dependence; Z88.0 Allergy status to penicillin; Z88.2 Allergy status to sulfonamides; Z91.040 Latex allergy status; Z91.018 Allergy to other foods; Z79.899 Other long term (current) drug therapy; Z79.84 Long term (current) use of oral hypoglycemic drugs

== ENCOUNTER 2024-08-29 05:51 | Emergency (ER) | payer MEDICARE, OTHER ==
[~2024-08-29] VITALS: Ht 177.8 cm; Wt 73.9 kg
[~2024-08-29 05:51] MED LIST changes: +DOXYCYCLINE HY100 MG PO
[2024-08-29] MEDS ORDERED: KETOROLAC TROMETHAMINE 30 MG/ML VIAL IM ONE (06:15)
[2024-08-29] MEDS ORDERED: HYDROCODONE BIT/ACETAMINOPHEN 5/325 MG 1 TAB HOME.PACK PO ONE (06:30)
[2024-08-29 06:39] VITALS: BP 123/76
== END 2024-08-29 06:40 | disposition home or self-care (01) ==
LOC: ED 05:51
DX: M19.011 Primary osteoarthritis, right shoulder (principal); E78.00 Pure hypercholesterolemia, unspecified; Z95.0 Presence of cardiac pacemaker; J44.9 Chronic obstructive pulmonary disease, unspecified; Z87.891 Personal history of nicotine dependence; Z98.1 Arthrodesis status; Z88.0 Allergy status to penicillin; Z88.2 Allergy status to sulfonamides; Z91.018 Allergy to other foods; Z91.040 Latex allergy status; Z88.8 Allergy status to other drugs, medicaments and biological substances; Z79.84 Long term (current) use of oral hypoglycemic drugs; Z79.899 Other long term (current) drug therapy
CPT/HCPCS: 96372; 99283; A9270; J1885

== ENCOUNTER 2024-10-08 05:01 | Emergency (ER) | payer MEDICARE, OTHER ==
[~2024-10-08] VITALS: Ht 177.8 cm; Wt 74.4 kg
[2024-10-08 05:15] LABS: BASOPHILS 3.3 % (0-2); EOSINOPHILS 0.7 % (0-6); HEMATOCRIT 42.8 % (35.0-50.0); HEMOGLOBIN 14.1 g/dL (12.0-18.0); LYMPHOCYTES 6.3 % (24-44); MCH 30.3 (27-36); MCHC 32.9 g/dl (30-36); MCV 92.3 fl (81-99); MONOCYTES 2.9 % (0-12); NEUTROPHILS 86.8 % (39-80); PLATELET COUNT 280 K/uL (140-440); RBC 4.63 M/ul (4.3-5.7); RDW 13.4 (10.5-15.0)
[2024-10-08] MEDS ORDERED: droPERidol 5 MG/2 ML VIAL IV ONE (05:15)
[2024-10-08] MEDS ORDERED: LACTATED RINGER'S 1,000 ML IV ONE (05:15)
[2024-10-08 05:28] LABS: ALBUMIN 3.7 g/dL (3.4-5.0); ALBUMIN/GLOBULIN RATIO 1.23 (1.1-2.4); ANION GAP 17.2 (7-21); BILIRUBIN, TOTAL 0.6 ng/dL (0.2-1.0); BUN/CREATININE RATIO 7.69 (6.0-28.6); CALCIUM 9.4 mg/dL (8.5-10.1); CREATININE, SERUM 1.17 mg/dL (0.55-1.02); POTASSIUM 4.2 mmol/L (3.5-5.1); PROTEIN, TOTAL 6.7 g/dL (6.4-8.2)
[2024-10-08] MEDS ORDERED: MORPHINE SULFATE 4 MG/ML VIAL IV ONE (05:30)
[2024-10-08 05:42] LABS: CORONAVIRUS COVID-19 AG NEGATIVE (NEGATIVE); INFLUENZA A AG NEGATIVE (NEGATIVE); INFLUENZA B AG NEGATIVE (NEGATIVE)
[2024-10-08] MEDS ORDERED: PROCHLORPERAZINE EDISYLATE 10 MG/2 ML VIAL IV ONE (05:45)
[2024-10-08] MEDS ORDERED: PROMETHEGAN25 MG PR (05:53)
[2024-10-08] MEDS ORDERED: ONDANSETRON 4 MG HOME.PACK SL ONE (06:00)
[2024-10-08] MEDS ORDERED: PROMETHAZINE HCL 25 MG SUPP. HOME.PACK PR ONE (06:00)
[2024-10-08] MEDS ORDERED: HYDROmorphone HCL 1 MG/ML SYR IV ONE (06:15)
[2024-10-08 06:35] VITALS: BP 139/109
== END 2024-10-08 06:35 | disposition home or self-care (01) ==
LOC: ED 05:01
PROVIDERS: Family Medicine
DX: R11.15 Cyclical vomiting syndrome unrelated to migraine (principal); J44.9 Chronic obstructive pulmonary disease, unspecified; F25.9 Schizoaffective disorder, unspecified; Z95.0 Presence of cardiac pacemaker; Z87.891 Personal history of nicotine dependence; Z88.0 Allergy status to penicillin; Z88.2 Allergy status to sulfonamides; Z88.8 Allergy status to other drugs, medicaments and biological substances; Z91.040 Latex allergy status; Z79.899 Other long term (current) drug therapy; Z79.84 Long term (current) use of oral hypoglycemic drugs
CPT/HCPCS: 36415; 74018; 80053; 83690; 85025; 96361; 96374; 96375; 99284-25; A9270; J0780; J1171; J1790; J2270; J7121

== ENCOUNTER 2025-03-20 02:11 | Emergency (ER) | payer MEDICARE, OTHER ==
[~2025-03-20] VITALS: Ht 177.8 cm; Wt 76.5 kg
[~2025-03-20 02:11] MED LIST changes: +PROMETHEGAN25 MG PR
[2025-03-20 02:27] LABS: BASOPHILS 0.8 % (0.1-1.2); EOSINOPHILS 1.8 % (0.7-5.8); LYMPHOCYTES 14.0 % (19.3-51.7); MCH 30.2 PG (25.6-32.2); MCHC 33.2 g/dL (32.2-35.5); MCV 91.0 fL (79.4-94.8); MONOCYTES 5.2 % (4.7-12.5); NEUTROPHILS 77.8 % (34.0-71.1); RBC 4.54 M/uL (3.93-5.22)
[2025-03-20] MEDS ORDERED: SODIUM CHLORIDE 0.9% 500 ML IV ONE (02:30)
[2025-03-20] MEDS ORDERED: SODIUM CHLORIDE 0.9% 1,000 ML IV PRN (02:30)
[2025-03-20 02:41] LABS: ALT (SGPT) 16.0 U/L (14-59); AST (SGOT) 16.0 U/L (15-37); GLOMERULAR FILTRATION RATE,EST 48.0 mL/min (>60); PROTEIN, TOTAL 7.1 g/dL (6.4-8.2); UREA NITROGEN 21.0 mg/dL (7-18)
[2025-03-20] MEDS ORDERED: METOCLOPRAMIDE HCL 10 MG/2 ML SDV IV ONE (02:45)
[2025-03-20] MEDS ORDERED: ONDANSETRON ODT8 MG PO (04:13)
[2025-03-20] MEDS ORDERED: PROMETHEGAN25 MG PR (04:13)
[2025-03-20] MEDS ORDERED: PROMETHAZINE HC25 M1 PO (04:13)
[2025-03-20] MEDS ORDERED: PROMETHAZINE HCL 25 MG HOME.PACK PO ONE (04:15)
[2025-03-20] MEDS ORDERED: PROMETHAZINE HCL 25 MG SUPP. HOME.PACK PR ONE (04:15)
[2025-03-20] MEDS ORDERED: ONDANSETRON 4 MG HOME.PACK SL ONE (04:15)
[2025-03-20 06:14] LABS: BLOOD/HGB, URINE NEGATIVE (Negative); KETONE, URINE SMALL (Negative); LEUK ESTERASE, URINE NEGATIVE (negative); NITRITE, URINE NEGATIVE (negative)
[2025-03-20] MEDS ORDERED: LORazepam 2 MG/ML VIAL IV ONE (06:15)
[2025-03-20 06:17] VITALS: BP 155/75
== END 2025-03-20 06:18 | disposition home or self-care (01) ==
LOC: ED 02:11
PROVIDERS: Emergency Medicine
DX: R11.15 Cyclical vomiting syndrome unrelated to migraine (principal); E78.00 Pure hypercholesterolemia, unspecified; Z87.891 Personal history of nicotine dependence; Z79.899 Other long term (current) drug therapy; Z79.84 Long term (current) use of oral hypoglycemic drugs; Z88.0 Allergy status to penicillin; Z88.2 Allergy status to sulfonamides; Z91.040 Latex allergy status; Z88.8 Allergy status to other drugs, medicaments and biological substances
CPT/HCPCS: 36415; 80053; 81003; 83690; 83735; 85025; 96361; 96374; 96375; 99284-25; A9270; J1200; J1790; J2405; J2765; J7030

== ENCOUNTER 2025-03-23 02:34 | Emergency (ER) | payer MEDICARE, OTHER ==
[~2025-03-23] VITALS: Ht 177.8 cm; Wt 73.0 kg
[~2025-03-23 02:34] MED LIST changes: +PROMETHAZINE HC25 M1 PO
[2025-03-23] MEDS ORDERED: MORPHINE SULFATE 4 MG/ML VIAL IV ONE (02:45)
[2025-03-23 03:05] LABS: BASOPHILS 0.5 % (0.1-1.2); EOSINOPHILS 0.1 % (0.7-5.8); LYMPHOCYTES 19.9 % (19.3-51.7); MCH 29.8 PG (25.6-32.2); MCHC 33.8 g/dL (32.2-35.5); MCV 88.1 fL (79.4-94.8); MONOCYTES 10.1 % (4.7-12.5); NEUTROPHILS 69.0 % (34.0-71.1); RBC 4.63 M/uL (3.93-5.22)
[2025-03-23 03:24] LABS: ALT (SGPT) 16.0 U/L (14-59); AST (SGOT) 17.0 U/L (15-37); GLOMERULAR FILTRATION RATE,EST 69.0 mL/min (>60); PROTEIN, TOTAL 6.7 g/dL (6.4-8.2); UREA NITROGEN 16.0 mg/dL (7-18)
[2025-03-23 03:38] LABS: BLOOD/HGB, URINE NEGATIVE (Negative); KETONE, URINE SMALL (Negative); LEUK ESTERASE, URINE NEGATIVE (negative); NITRITE, URINE NEGATIVE (negative)
[2025-03-23] MEDS ORDERED: MINERAL OIL 133 ML BTL PR ONE (04:00)
[2025-03-23] MEDS ORDERED: MAGNESIUM SULFATE 2 GM/50 ML BAG IV ONE (04:00)
[2025-03-23] MEDS ORDERED: POTASSIUM CHLORIDE 10 MEQ TABCR PO ONE (04:00)
[2025-03-23] MEDS ORDERED: LACTULOSE10 GM/15 M PO (04:01)
[2025-03-23] MEDS ORDERED: ONDANSETRON ODT8 MG PO (04:01)
[2025-03-23] MEDS ORDERED: ONDANSETRON 4 MG HOME.PACK SL ONE (04:15)
[2025-03-23] MEDS ORDERED: MAGNESIUM CITRATE 300 ML BTL PO ONE (04:15)
[2025-03-23 06:13] VITALS: BP 114/85
== END 2025-03-23 06:48 | disposition home or self-care (01) ==
LOC: ED 02:34
PROVIDERS: Family Medicine
DX: K59.00 Constipation, unspecified (principal); K52.9 Noninfective gastroenteritis and colitis, unspecified; Z79.899 Other long term (current) drug therapy; Z88.0 Allergy status to penicillin; Z88.2 Allergy status to sulfonamides; Z91.040 Latex allergy status; Z88.8 Allergy status to other drugs, medicaments and biological substances; Z87.891 Personal history of nicotine dependence
CPT/HCPCS: 36415; 74177; 80053; 81003; 83735; 85025; 96365; 96375; 99284-25; A9270; J2270; J2405; J3475; Q9967

== ENCOUNTER 2025-05-19 09:35 | Day surgery (SDC) | payer MEDICARE, OTHER ==
[~2025-05-19] VITALS: Ht 177.8 cm; Wt 73.0 kg
[~2025-05-19 09:35] MED LIST changes: +IBLOOD GLUCOSE TEST STRIP 1 EA TEST VI PRN; +LACTATED RINGER'S 1,000 ML IV SCH; +LACTULOSE10 GM/15 M PO; +LIDOCAINE HCL 1% 5 ML SDV INJ ONE; +ROSUVASTATIN CA20 MG PO; +VAZALORE81 MG PO
[2025-05-19 09:57] VITALS: BP 116/78
--- NOTE | 2025-05-19 10:55 | NUR ---
1055- HOURLY ROUNDING COMPLETED. PT HAS NO NEEDS AT THIS TIME. CALL LIGHT IN REACH.
--- NOTE | 2025-05-19 11:12 | NUR ---
HOURLY NOTED IN PREVIOUS NOTE
--- NOTE | 2025-05-19 12:00 | NUR ---
1200- PT IN POSTION OF COMFORT. REQUESTED LIGHTS BE TURNED OFF SO SHE COULD SLEEP. NO FURTHER NEEDS AT THIS TIME. CALL LIGHT IN REACH.
--- NOTE | 2025-05-19 13:33 | NUR ---
1330- PT IN POSTION OF COMFORT RESTING. NO NEEDS AT THIS TIME.
--- NOTE | 2025-05-19 15:12 | NUR ---
1430- PT COMPLAINT OF "LOUD NOISE" THROUGH WALL THAT IS "GIVING ME A HEADACHE". PT REQUESTED IF SOMETHING COULD BE GIVEN FOR PAIN AND VOICED FRUSTRATION WITH EXTENDED WAIT TIME. MOUTH SWAB PROVIDED FOR DRY MOUTH, WARM BLANKET PROVIDED, AND OFERED TO TURN ON TV TO HELP DISTRACT FROM SOUND THROUGH WALL (MRI). PT STATED "THIS IS MY WORST EXPERIENCE EVER AT THIS HOSPITAL." APOLOGIZED TO PT FOR EXTENDED WAIT. INCREASED FLUIDS RATE TO HELP WITH HEADACHE.
--- NOTE | 2025-05-19 16:02 | NUR ---
1600- PT IN POSITION OF COMFORT. STILL COMPLAINS OF A HEADACHE BUT 1L OF LR IS ALMOST COMPLETE. SECOND BAG HUNG IN ROOM FOR OR TO START WHEN NEEDED. PT UPDATED ON ESTIMATED TIME FOR PROCEDURE. NO OTHER NEEDS AT THIS TIME.
[2025-05-19] MEDS ORDERED: LIDOCAINE HCL 2% 5 ML SDV ONE (16:27)
--- NOTE | 2025-05-19 17:14 | NUR ---
05/19/25 1714 Jose Acosta 1703: PT ARRIVED TO PACU VIA STRETCHER. PT ON 6L VIA MASK. PT AROUSABLE BUT DRWOSY. 1705: PT TITRATED TO RA AT THIS TIME. PT REMAINS DROWSY BUT ALERT. 1712: PT REQUESTING WATER AT THIS TIME. PT REMAIN ON RA.
[2025-05-19 17:16] VITALS: BP 154/94
--- NOTE | 2025-05-24 19:06 | PATH ---
[facility] [address] [place], [place] [address] Signed SPECIMEN(S): A DISTAL ASCENDING COLON POLYP SPECIMEN(S): B HEPATIC FLEXURE COLON POLYP SPECIMEN SOURCE: A. DISTAL ASCENDING COLON POLYP B. HEPATIC FLEXURE COLON POLYP CLINICAL HISTORY: History of polyps FINAL PATHOLOGIC DIAGNOSIS: A. Distal ascending colon polyp: - Tubular adenoma. - Negative for high-grade dysplasia or malignancy. B. Hepatic flexure colon polyp: - Tubular adenoma. - Negative for high-grade dysplasia or malignancy. [facility] MICROSCOPIC EXAMINATION: Histologic sections of all submitted blocks are examined by light microscopy. These findings, together with the gross examination, support the pathologic diagnosis. GROSS DESCRIPTION: A. The specimen, labeled and designated "Camron, distal ascending colon polyp," is received in formalin and consists of one hall soft tissue fragment, 0.6 cm. Entirely submitted in (A1). B. The specimen, labeled and designated "Camron, hepatic flexure colon polyp," is received in formalin and consists of three hall soft tissue fragments, ranging from 0.3-0.5 cm. Entirely submitted in (B1). VB (under the direct supervision of a pathologist) The Gross Description was prepared using a voice recognition system. The report was reviewed for accuracy; however, sound-alike word errors, addition and/or deletions may occur. If there is any question about this report, please contact Client Services. ADDITIONAL NOTES: Immunohistochemical and/or in situ hybridization studies if performed in this case included appropriate positive controls that reacted as expected. This PATIENT NAME: LYRIC SANTOS PATHOLOGY DATE OF : 58 REPORT #: [id number] PHYSICIAN: JARROD POTTER PCP: MEDINA ELLIOTT DO REPORT IS CONFIDENTIAL AND NOT TO BE RELEASED WITHOUT AUTHORIZATION [facility] [address] [place] [id number] Signed test was developed and its performance characteristics determined by [employer] It has not been cleared or approved by the U.S. Food and Drug Administration. The FDA has determined that such clearance or approval is not necessary. This test is used for clinical purposes. It should not be regarded as investigational or for research. [employer] is certified under the Clinical Laboratory Improvement Amendments of 1988 (CLIA) as qualified to perform high complexity clinical laboratory testing. PERFORMING LABORATORY: Technical component was performed by [employer] [address] [place] [id number] (CLIA# [id number]). Professional interpretation was performed by [facility] [place], [address] [place] [id number] (CLIA#: [id number]). Diagnostician: Andrez Ojeda MD Pathologist Electronically Signed 05/24/2025 Copies: ~ PATIENT NAME: LYRIC SANTOS PATHOLOGY DATE OF : 58 REPORT #: [id number] PHYSICIAN: JARROD PATHOLOGY PCP: MEDINA ELLIOTT DO REPORT IS CONFIDENTIAL AND NOT TO BE RELEASED WITHOUT AUTHORIZATION
== END 2025-05-19 17:30 | disposition home or self-care (01) ==
LOC: DS 09:35
PROVIDERS: ATTEND Surgery
PROC: 0DBL8ZX Excision of Transverse Colon, Via Natural or Artificial Opening Endoscopic, Diagnostic (ICD-10-PCS; 2025-05-19)
PROC: 0DBK8ZX Excision of Ascending Colon, Via Natural or Artificial Opening Endoscopic, Diagnostic (ICD-10-PCS; principal; 2025-05-19 12:25)
DX: Z12.11 Encounter for screening for malignant neoplasm of colon (principal); D12.2 Benign neoplasm of ascending colon; D12.3 Benign neoplasm of transverse colon; K21.9 Gastro-esophageal reflux disease without esophagitis; F20.9 Schizophrenia, unspecified; E78.00 Pure hypercholesterolemia, unspecified; Z87.891 Personal history of nicotine dependence; Z79.899 Other long term (current) drug therapy; Z95.0 Presence of cardiac pacemaker; Z88.0 Allergy status to penicillin; Z88.2 Allergy status to sulfonamides; Z88.8 Allergy status to other drugs, medicaments and biological substances; Z91.040 Latex allergy status
CPT/HCPCS: 00811; J2003; J2704; J7121